=== PATIENT | female | born 1995 | race Caucasian/White ===

== ENCOUNTER 2017-04-29 22:56 | Observation (INO) | payer OTHER, SELFPAY ==
[2017-04-29] MEDS ORDERED: Sodium Chloride 0.9% 1000 ML 1,000 ML IV STA (23:14)
--- NOTE | 2017-04-29 23:25 | ERPHSYRPT ---
- History of Present Illness Time Seen by Provider: 04/29/17 23:08 Source: patient Physician History: CC: general weakness HX: 22 y/o patient of Dr Bal and Dr Espino. She has hx of HTN since age 10. She recently started lisinopril in addition to labetolol. Tonite at work at [employer] she felt general weakness, tired. BP lo 70s. No chest pain. Some headache. Feels weak all over. No fever or chills. No abd pain. No V/D. Meds: Lisinopril/HCTZ and labetolol Timing/Duration: today Allergies/Adverse Reactions: No Known Drug Allergies Allergy (Verified 10/27/15 14:42) Home Medications: Diazepam [Valium] 2 mg PO DAILY PRN PRN 09/27/15 [History] Hydrocodone/APAP 10/325 mg [[place] 10/325 MG Tablet] 1 tab PO Q6H 09/27/15 [History] Carvedilol [Coreg] 25 mg PO BID 10/27/15 [History] Hx Tetanus, Diphtheria Vaccination/Date Given: Yes Hx Influenza Vaccination/Date Given: No Hx Pneumococcal Vaccination/Date Given: No - Review of Systems Constitutional: Malaise, Weakness, No Fever, No Chills Eyes: No Symptoms Ears, Nose, & Throat: No Symptoms Respiratory: No Cough, No Dyspnea Cardiac: No Chest Pain Abdominal/Gastrointestinal: No Abdominal Pain, No Nausea, No Vomiting, No Diarrhea Genitourinary Symptoms: No Dysuria Skin: No Rash Neurological: Headache, No Dizziness, No Focal Weakness, No Parasthesia All Other Systems: Reviewed and Negative - Past Medical History Pertinent Past Medical History: Yes Neurological History: No Pertinent History ENT History: No Pertinent History Cardiac History: Hypertension Respiratory History: No Pertinent History Endocrine Medical History: No Pertinent History Musculoskeletal History: Arthritis GI Medical History: GERD History: Other Psycho-Social History: Anxiety, Depression Female Reproductive Disorders: No Pertinent History - Past Surgical History Past Surgical History: Yes Neuro Surgical History: No Pertinent History Cardiac: Cardiac Catheterization, Other Respiratory: No Pertinent History Gastrointestinal: No Pertinent History Genitourinary: No Pertinent History Musculoskeletal: Orthopedic Surgery Female Surgical History: No Pertinent History Other Surgical History: right ankle biopsy, 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 - Social History Smoking Status: Never smoker Exposure to second hand smoke: Yes Drug Use: none Patient Lives Alone: No ( here with ) - Female History Hx Now: Yes - Nursing Vital Signs Nursing Vital Signs: Initial Vital Signs Temperature 98 F 04/29/17 23:14 Pulse Rate 72 04/29/17 23:14 Respiratory Rate 16 04/29/17 23:14 Blood Pressure 105/78 04/29/17 23:14 O2 Sat by Pulse Oximetry 98 04/29/17 23:14 Pain Scale Pain Intensity 0 - Physical Exam General Appearance: alert Eye Exam: PERRL/EOMI Ears, Nose, Throat Exam: normal ENT inspection, moist mucous membranes Neck Exam: normal inspection, non-tender, supple Respiratory Exam: normal breath sounds, lungs clear Cardiovascular Exam: regular rate/rhythm Gastrointestinal/Abdomen Exam: soft, No tenderness, No distention, No mass, No guarding Extremity Exam: normal inspection, normal range of motion Neurologic Exam: alert, oriented x 3, cooperative Skin Exam: warm, dry, No rash SpO2 Interpretation: normal SpO2: 98 Oxygen Delivery: Room Air - Course Nursing assessment & vital signs reviewed: Yes EKG Interpreted by Me: RATE (74), Sinus Rhythm, NORMAL AXIS, NORMAL INTERVALS ( QTc 473), NORMAL QRS, NORMAL ST-T, Other (right atrial enlargement) Ordered Tests: Active Orders 24 hr Category Date Time Status Clean Catch Urine Specimen STAT Care 04/29/17 23:14 Active EKG-ER Only STAT Care 04/29/17 23:14 Active IV Insertion STAT Care 04/29/17 23:14 Active ACETAMINOPHEN Stat Lab 04/30/17 00:00 Completed BLOOD CULTURE Stat Lab 04/30/17 00:00 Received CBC W DIFF Stat Lab 04/29/17 23:32 Completed CMP Stat Lab 04/29/17 23:32 Completed CULTURE,URINE Stat Lab 04/29/17 23:40 Received HCG QUALITATIVE,SERUM Stat Lab 04/29/17 23:32 Completed Lactic Acid Stat Lab 04/30/17 00:14 Completed MAGNESIUM Stat Lab 04/29/17 23:32 Completed UA W/ MICROSCOPIC Stat Lab 04/29/17 23:40 Completed Urine Triage Profile Stat Lab 04/29/17 23:40 Completed Medication Summary Generic Name Dose Route Start Last Admin Trade Name Freq PRN Reason Stop Dose Admin Ceftriaxone Sodium/Dextrose 1 g in 50 mls @ 100 mls/hr 04/30/17 00:15 Rocephin 1 Gm-D5w 50 Ml Bag IV 04/30/17 00:44 STAT STA Discontinued Medications Generic Name Dose Route Start Last Admin Trade Name Zach PRN Reason Stop Dose Admin Sodium Chloride 1,000 mls @ 999 mls/hr 04/29/17 23:14 04/29/17 23:33 Sodium Chloride 0.9% 1000 Ml IV 04/30/17 00:14 999 mls/hr .Q1H1M STA Administration Sodium Chloride Confirm 04/29/17 23:30 Sodium Chloride 0.9% 1000 Ml Administered 04/29/17 23:31 Dose 1,000 mls @ ud .ROUTE .STK-MED ONE Lab/Rad Data: Laboratory Result Diagrams 04/29/17 23:32 04/29/17 23:32 Laboratory Results 04/30/17 04/30/17 04/29/17 Range/Units 00:14 00:00 23:40 WBC (4.0-10.5) K/mm3 RBC (4.1-5.4) M/mm3 Hgb (12.0-16.0) gm/dl Hct (35-47) % MCV (78-100) fl MCH (26-32) pg MCHC (32-36) g/dl RDW (11.5-14.0) % Plt Count (150-450) K/mm3 MPV (6-9.5) fl Gran % (36.0-66.0) % Lymphocytes % (24.0-44.0) % Monocytes % (0.0-12.0) % Eosinophils % (0.00-5.0) % Basophils % (0.0-0.4) % Basophils # (0-0.4) Sodium (136-145) mEq/L Potassium (3.5-5.1) mEq/L Chloride (98-107) mEq/L Carbon Dioxide (21-32) mEq/L Anion Gap (5-15) MEQ/L BUN (9-20) mg/dL Creatinine (0.55-1.30) mg/dl Estimated GFR ML/MIN Glucose (70-110) MG/DL Lactic Acid 0.9 (0.4-2.0) Calcium (8.5-10.1) mg/dL Magnesium (1.8-2.4) mg/dL Total Bilirubin (0.2-1.0) mg/dL AST (15-37) U/L ALT (12-78) U/L Alkaline Phosphatase (46-116) U/L Serum Total Protein (6.4-8.2) gm/dL Albumin (3.4-5.0) g/dL Serum , Qual (Negative) Ur Collection Type Urine Color (YELLOW) Urine Appearance (CLEAR) Urine pH (5-6) Ur Specific [place] (1.005-1.025) Urine Protein (Negative) Urine Ketones (NEGATIVE) Urine Blood (0-5) Hiram/ul Urine Nitrite (NEGATIVE) Urine Bilirubin (NEGATIVE) Urine Urobilinogen (0-1) mg/dL Ur Leukocyte Esterase (NEGATIVE) Urine Microscopic RBC (0-2) /HPF Urine Microscopic WBC (0-5) /HPF Ur Epithelial Cells (FEW) /HPF Amorphous Crystals (NEGATIVE) /HPF Urine Bacteria (NEGATIVE) /HPF Hyaline Casts (0-2) /LPF Urine Glucose (NEGATIVE) mg/dL Urine Opiates Level POS. (NEGATIVE) Ur Methadone NEG. (NEGATIVE) Acetaminophen < 2.0 L (10-30) ug/ml Urine Barbiturates NEG. (NEGATIVE) Ur Phencyclidine (PCP) NEG. (NEGATIVE) Urine Amphetamine NEG. (NEGATIVE) U Benzodiazepine Level NEG. (NEGATIVE) Urine Cocaine NEG. (NEGATIVE) Urine Marijuana (THC) NEG. (NEGATIVE) Specimen Received 04/29/17 04/29/17 04/29/17 Range/Units 23:40 23:32 23:32 WBC (4.0-10.5) K/mm3 RBC (4.1-5.4) M/mm3 Hgb (12.0-16.0) gm/dl Hct (35-47) % MCV (78-100) fl MCH (26-32) pg MCHC (32-36) g/dl RDW (11.5-14.0) % Plt Count (150-450) K/mm3 MPV (6-9.5) fl Gran % (36.0-66.0) % Lymphocytes % (24.0-44.0) % Monocytes % (0.0-12.0) % Eosinophils % (0.00-5.0) % Basophils % (0.0-0.4) % Basophils # (0-0.4) Sodium 140 (136-145) mEq/L Potassium 4.0 (3.5-5.1) mEq/L Chloride 102 (98-107) mEq/L Carbon Dioxide 29.1 (21-32) mEq/L Anion Gap 13.1 (5-15) MEQ/L BUN 30 H (9-20) mg/dL Creatinine 2.06 H (0.55-1.30) mg/dl Estimated GFR 31 ML/MIN Glucose 151 H (70-110) MG/DL Lactic Acid (0.4-2.0) Calcium 9.0 (8.5-10.1) mg/dL Magnesium 1.9 (1.8-2.4) mg/dL Total Bilirubin 0.20 (0.2-1.0) mg/dL AST 28 (15-37) U/L ALT 33 (12-78) U/L Alkaline Phosphatase 69 (46-116) U/L Serum Total Protein 7.2 (6.4-8.2) gm/dL Albumin 3.8 (3.4-5.0) g/dL Serum , Qual NEGATIVE (Negative) Ur Collection Type CLEAN CATCH Urine Color YELLOW (YELLOW) Urine Appearance CLEAR (CLEAR) Urine pH 5.0 (5-6) Ur Specific [place] 1.020 (1.005-1.025) Urine Protein 100 (Negative) Urine Ketones NEGATIVE (NEGATIVE) Urine Blood 50 (0-5) Hiram/ul Urine Nitrite NEGATIVE (NEGATIVE) Urine Bilirubin NEGATIVE (NEGATIVE) Urine Urobilinogen NORMAL (0-1) mg/dL Ur Leukocyte Esterase 2+ (NEGATIVE) Urine Microscopic RBC 5-10 (0-2) /HPF Urine Microscopic WBC 5-10 (0-5) /HPF Ur Epithelial Cells MODERATE (FEW) /HPF Amorphous Crystals MODERATE (NEGATIVE) /HPF Urine Bacteria FEW (NEGATIVE) /HPF Hyaline Casts 2-5 (0-2) /LPF Urine Glucose NEGATIVE (NEGATIVE) mg/dL Urine Opiates Level (NEGATIVE) Ur Methadone (NEGATIVE) Acetaminophen (10-30) ug/ml Urine Barbiturates (NEGATIVE) Ur Phencyclidine (PCP) (NEGATIVE) Urine Amphetamine (NEGATIVE) U Benzodiazepine Level (NEGATIVE) Urine Cocaine (NEGATIVE) Urine Marijuana (THC) (NEGATIVE) Specimen Received 04/29/17 [id number] 04/29/17 Range/Units 23:32 WBC 10.6 H (4.0-10.5) K/mm3 RBC 4.26 (4.1-5.4) M/mm3 Hgb 11.7 L (12.0-16.0) gm/dl Hct 36.5 (35-47) % MCV 85.7 (78-100) fl MCH 27.4 (26-32) pg MCHC 32.1 (32-36) g/dl RDW 15.3 H (11.5-14.0) % Plt Count 460 H (150-450) K/mm3 MPV 8.9 (6-9.5) fl Gran % 52.7 (36.0-66.0) % Lymphocytes % 32.1 (24.0-44.0) % Monocytes % 11.2 (0.0-12.0) % Eosinophils % 3.6 (0.00-5.0) % Basophils % 0.4 (0.0-0.4) % Basophils # 0.04 (0-0.4) Sodium (136-145) mEq/L Potassium (3.5-5.1) mEq/L Chloride (98-107) mEq/L Carbon Dioxide (21-32) mEq/L Anion Gap (5-15) MEQ/L BUN (9-20) mg/dL Creatinine (0.55-1.30) mg/dl Estimated GFR ML/MIN Glucose (70-110) MG/DL Lactic Acid (0.4-2.0) Calcium (8.5-10.1) mg/dL Magnesium (1.8-2.4) mg/dL Total Bilirubin (0.2-1.0) mg/dL AST (15-37) U/L ALT (12-78) U/L Alkaline Phosphatase (46-116) U/L Serum Total Protein (6.4-8.2) gm/dL Albumin (3.4-5.0) g/dL Serum , Qual (Negative) Ur Collection Type Urine Color (YELLOW) Urine Appearance (CLEAR) Urine pH (5-6) Ur Specific [place] (1.005-1.025) Urine Protein (Negative) Urine Ketones (NEGATIVE) Urine Blood (0-5) Hiram/ul Urine Nitrite (NEGATIVE) Urine Bilirubin (NEGATIVE) Urine Urobilinogen (0-1) mg/dL Ur Leukocyte Esterase (NEGATIVE) Urine Microscopic RBC (0-2) /HPF Urine Microscopic WBC (0-5) /HPF Ur Epithelial Cells (FEW) /HPF Amorphous Crystals (NEGATIVE) /HPF Urine Bacteria (NEGATIVE) /HPF Hyaline Casts (0-2) /LPF Urine Glucose (NEGATIVE) mg/dL Urine Opiates Level (NEGATIVE) Ur Methadone (NEGATIVE) Acetaminophen (10-30) ug/ml Urine Barbiturates (NEGATIVE) Ur Phencyclidine (PCP) (NEGATIVE) Urine Amphetamine (NEGATIVE) U Benzodiazepine Level (NEGATIVE) Urine Cocaine (NEGATIVE) Urine Marijuana (THC) (NEGATIVE) Specimen Received - Progress Progress Note: 04/30/17 00:31 BP borderline low. She is still groggy. Denies overdose. She states creat has been elevated but it is higher now than on our prior labs. Called Dr Bal. Will place in obs for IVF and recheck renal labs in AM. Counseled pt/family regarding: lab results, diagnosis, need for follow-up, smoking cessation (chewing cessation) - Departure Time of Disposition: 00:32 Departure Disposition: Observation Clinical Impression: Hypotension due to drugs, Chronic hypertension, Generalized weakness Condition: Fair Critical Care Time: No Referrals: JOANNE BAL MD [Primary Care Provider] -
[2017-04-29] MEDS ORDERED: Sodium Chloride 0.9% 1000 ML 1,000 ML ONE (23:30)
[2017-04-29 23:35] LABS: BASOPHIL % 0.4 % (0.0-0.4); Eosinophil % 3.6 % (0.00-5.0); Granulocytes % 52.7 % (36.0-66.0); Lymphocytes % 32.1 % (24.0-44.0); Mean Cell Volume 85.7 fl (78-100); Mean Platelet Volume 8.9 fl (6-9.5); Monocytes % 11.2 % (0.0-12.0); Platelet Count 460 K/mm3 (150-450); Red Blood Count 4.26 M/mm3 (4.1-5.4); Red Cell Distribution Width 15.3 % (11.5-14.0); White Blood Count 10.6 K/mm3 (4.0-10.5)
[2017-04-29 23:39] LABS: Mean Corpuscular Hemoglobin 27.4 pg (26-32)
[2017-04-30 00:02] LABS: ALBUMIN 3.8 g/dL (3.4-5.0); ANION GAP 13.1 MEQ/L (5-15); BILIRUBIN,TOTAL 0.2 mg/dL (0.2-1.0); Carbon Dioxide 29.1 mEq/L (21-32); MAGNESIUM 1.9 mg/dL (1.8-2.4); Total Protein 7.2 gm/dL (6.4-8.2)
[2017-04-30 00:10] LABS: Collection Type CLEAN CATCH; Leukocyte Esterase 2+ (NEGATIVE)
[2017-04-30 00:11] LABS: ADD URINE CULTURE? YES (NO); Bacteria FEW /HPF (NEGATIVE); Bilirubin NEGATIVE (NEGATIVE); Blood 50 Ery/ul (0-5); COMPLETE URINE MICROSCOPIC? YES; Epithelial Cells MODERATE /HPF (FEW); Glucose NEGATIVE (NEGATIVE)
[2017-04-30] MEDS ORDERED: ROCEPHIN 1 Gm-D5w 50 ml Bag** 1 G/50 ML IVPB IV STA (00:15)
[2017-04-30] MEDS ORDERED: ROCEPHIN 1 Gm-D5w 50 ml Bag** 1 G/50 ML IVPB IV ONE (00:31)
[2017-04-30] MEDS ORDERED: Sodium Chloride 0.9% 1000 ML 1,000 ML IV SCH ×2 (00:57→10:45)
[2017-04-30] MEDS ORDERED: TYLENOL 325 MG PO PRN (00:57)
[2017-04-30 05:45] LABS: BASOPHIL % 0.4 % (0.0-0.4); Eosinophil % 5.4 % (0.00-5.0); Granulocytes % 44.9 % (36.0-66.0); Lymphocytes % 34.7 % (24.0-44.0); Mean Cell Volume 87.5 fl (78-100); Mean Corpuscular Hemoglobin 27.2 pg (26-32); Mean Platelet Volume 8.4 fl (6-9.5); Monocytes % 14.6 % (0.0-12.0); Platelet Count 405 K/mm3 (150-450); Red Blood Count 3.93 M/mm3 (4.1-5.4); Red Cell Distribution Width 15.6 % (11.5-14.0); White Blood Count 9.2 K/mm3 (4.0-10.5)
[2017-04-30 06:21] LABS: ALBUMIN 3.2 g/dL (3.4-5.0); ALKALINE PHOSPHATASE 60 U/L (46-116); ANION GAP 11.1 MEQ/L (5-15); BLOOD UREA NITROGEN 31 mg/dL (9-20); CHLORIDE 105 mEq/L (98-107); Carbon Dioxide 29.8 mEq/L (21-32); Glucose 120 MG/DL (70-110); Potassium 4.2 mEq/L (3.5-5.1); SGOT/AST 23 U/L (15-37); SGPT/ALT 30 U/L (12-78); SODIUM 142 mEq/L (136-145); Total Protein 6.5 gm/dL (6.4-8.2)
[2017-04-30 06:39] LABS: BILIRUBIN,TOTAL < 0.10 mg/dL (0.2-1.0)
--- NOTE | 2017-04-30 09:20 | PCM.HP ---
History of Present Illness - Chief Complaint Chief Complaint: generalized weakness History of Present Illness: is a 22 year old female. has hx of HTN since age 10. She recently started lisinopril in addition to labetolol. Tonite at work at [employer] she felt general weakness, tired. BP lo 70s. No chest pain. Some headache. Feels weak all over. No fever or chills. No abd pain. No V/D. - Review of Systems Constitutional: No Fever, No Chills Eyes: No Symptoms Ears, Nose, & Throat: No Symptoms Respiratory: No Cough, No Short Of Breath Cardiac: No Chest Pain, No Edema, No Syncope Abdominal/Gastrointestinal: No Abdominal Pain, No Nausea, No Vomiting, No Diarrhea Genitourinary Symptoms: No Dysuria Musculoskeletal: No Back Pain, No Neck Pain Skin: No Rash Neurological: No Dizziness, No Focal Weakness, No Sensory Changes Psychological: No Symptoms Endocrine: No Symptoms Hematologic/Lymphatic: No Symptoms Immunological/Allergic: No Symptoms Medications & Allergies Home Medications: Home Medication List Hydrocodone/APAP 10/325 mg [[place] 10/325 MG Tablet] 1 tab PO Q6H PRN PRN 09/27/15 [History Confirmed 04/30/17] Labetalol HCl 100 mg [Trandate 100 MG] 300 mg PO HS 04/30/17 [History Confirmed 04/30/17] Lisinopril/Hydrochlorothiazide [Lisinopril-Hctz 20-12.5 mg Tab] 1 each PO DAILY 04/30/17 [History Confirmed 04/30/17] Ranitidine HCl 150 mg PO Q4H PRN PRN 04/30/17 [History Confirmed 04/30/17] Allergies/Adverse Reactions: Allergies Allergy/AdvReac Type Severity Reaction Status Date / Time No Known Drug Allergies Allergy Verified 10/27/15 14:42 - Past Medical History Past Medical History: Yes Neurological History: No Pertinent History ENT History: No Pertinent History Cardiac History: Hypertension Respiratory History: No Pertinent History Endocrine Medical History: No Pertinent History Musculoskelatal History: Arthritis GI Medical History: GERD History: Other Pyscho-Social History: Anxiety, Depression Reproductive Disorders: No Pertinent History Comment: PAST DX OF STAGE I KIDNEY FAILURE. 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 - Social History Smoking Status: Never smoker Exposure to second hand smoke: No Alcohol: None Drug Use: none - Physical Exam Vital Signs: Vital Signs - 24 hr Temp Pulse Resp BP Pulse Ox 04/30/17 07:38 97.7 F 71 18 105/64 94 L 04/30/17 06:00 97.6 F 67 14 100/60 98 04/30/17 04:00 97.6 F 67 14 100/60 98 04/30/17 00:57 97.9 F 80 14 102/63 98 04/30/17 00:33 98 04/30/17 00:16 98 F 78 16 105/78 98 04/29/17 23:14 98 F 72 16 105/78 98 General Appearance: no apparent distress, alert Neurologic Exam: alert, oriented x 3, cooperative, normal mood/affect, nml cerebellar function, nml station & gait, sensation nml, No motor deficits Eye Exam: PERRL/EOMI, eyes nml inspection Ears, Nose, Throat Exam: normal ENT inspection, TMs normal, pharynx normal, moist mucous membranes Neck Exam: normal inspection, non-tender, supple, full range of motion Respiratory Exam: normal breath sounds, lungs clear, No respiratory distress Cardiovascular Exam: regular rate/rhythm, normal heart sounds, normal peripheral pulses Gastrointestinal/Abdomen Exam: soft, normal bowel sounds, No tenderness, No mass Back Exam: normal inspection, normal range of motion, No CVA tenderness, No vertebral tenderness Extremity Exam: normal inspection, normal range of motion, pelvis stable Skin Exam: normal color, warm, dry, No rash Lymphatic Exam: No adenopathy Results - Labs Lab/Micro Results: Lab Results-Last 24 Hours 04/30/17 04/30/17 Range/Units 05:33 05:33 WBC 9.2 (4.0-10.5) K/mm3 RBC 3.93 L (4.1-5.4) M/mm3 Hgb 10.7 L (12.0-16.0) gm/dl Hct 34.4 L (35-47) % MCV 87.5 (78-100) fl MCH 27.2 (26-32) pg MCHC 31.1 L (32-36) g/dl RDW 15.6 H (11.5-14.0) % Plt Count 405 (150-450) K/mm3 MPV 8.4 (6-9.5) fl Gran % 44.9 (36.0-66.0) % Lymphocytes % 34.7 (24.0-44.0) % Monocytes % 14.6 H (0.0-12.0) % Eosinophils % 5.4 H (0.00-5.0) % Basophils % 0.4 (0.0-0.4) % Basophils # 0.04 (0-0.4) Sodium 142 (136-145) mEq/L Potassium 4.2 (3.5-5.1) mEq/L Chloride 105 (98-107) mEq/L Carbon Dioxide 29.8 (21-32) mEq/L Anion Gap 11.1 (5-15) MEQ/L BUN 31 H (9-20) mg/dL Creatinine 1.70 H (0.55-1.30) mg/dl Estimated GFR 39 ML/MIN Glucose 120 H (70-110) MG/DL Calcium 8.5 (8.5-10.1) mg/dL Total Bilirubin < 0.10 L (0.2-1.0) mg/dL AST 23 (15-37) U/L ALT 30 (12-78) U/L Alkaline Phosphatase 60 (46-116) U/L Serum Total Protein 6.5 (6.4-8.2) gm/dL Albumin 3.2 L (3.4-5.0) g/dL Assessment/Plan (1) Acute renal failure Current Visit: Yes Status: Acute Qualifiers: Acute renal failure type: unspecified Qualified Code(s): N17.9 - Acute kidney failure, unspecified (2) Generalized weakness Current Visit: Yes Status: Acute Code(s): R53.1 - WEAKNESS (3) Hypotension due to drugs Current Visit: Yes Status: Acute (4) UTI (urinary tract infection) Current Visit: Yes Status: Acute Qualifiers: Urinary tract infection type: acute cystitis Code(s): N39.0 - URINARY TRACT INFECTION, SITE NOT SPECIFIED
--- NOTE | 2017-04-30 09:30 | PCM.DCORD ---
- Discharge Discharge Date: 04/30/17 Disposition: Home, Self-Care Condition: Stable Prescriptions: New Ciprofloxacin [Cipro 500 MG] 500 mg PO BID #10 tablet Acetaminophen 325 mg [Tylenol 325 mg] 650 mg PO Q6H PRN PRN #0 tablet PRN Reason: Pain And/Or Fever Continue Labetalol HCl 100 mg [Trandate 100 MG] 300 mg PO HS Ranitidine HCl 150 mg PO Q4H PRN PRN PRN Reason: Gerd Discontinued Hydrocodone/APAP 10/325 mg [[place] 10/325 MG Tablet] 1 tab PO Q6H PRN PRN PRN Reason: Pain Lisinopril/Hydrochlorothiazide [Lisinopril-Hctz 20-12.5 mg Tab] 1 each PO DAILY Follow up with: JOANNE BAL MD [Primary Care Provider] - 7 Days
[2017-04-30] MEDS ORDERED: Sodium Chloride 0.9% 1000 ML 1,000 ML IV STA ×2 (09:59→10:00)
[2017-04-30] MEDS ORDERED: NON-FORMULARY ITEM (Ranitidine Hcl [Ranitidine Hcl] 150 MG) PO PRN (10:40)
[2017-04-30] MEDS ORDERED: Pepcid 20 MG PO PRN (10:42)
[2017-04-30 11:43] VITALS: BP 107/55; PULSE 77; O2SAT 95
[2017-04-30] MEDS ORDERED: Trandate 100 MG PO SCH (22:00)
== END 2017-04-30 11:40 | disposition home or self-care (01) ==
LOC: ED 22:56 → MED SURG 04-30 00:50
PROVIDERS: ADMIT General Practice; ATTEND General Practice
DX: N17.9 Acute kidney failure, unspecified (principal); R53.1 Weakness; I95.2 Hypotension due to drugs; N39.0 Urinary tract infection, site not specified
CPT/HCPCS: 36000; 36415; 80053; 80307; 81000; 81002; 83605; 83735; 84703; 85025; 87040; 87086; 93005; 93268; 96360; 96365; 99285; G0378; G0481; J0696; A9270-GY

== ENCOUNTER 2017-08-17 10:24 | Emergency (ER) | payer OTHER, SELFPAY ==
[2017-08-17] MEDS ORDERED: Zofran 4 MG/2 ML VIAL ONE (10:34)
[2017-08-17] MEDS ORDERED: Sodium Chloride 0.9% 1000 ML 1,000 ML ONE ×2 (10:34→11:53)
[2017-08-17] MEDS ORDERED: Zofran 4 MG/2 ML VIAL IV STA (10:35)
[2017-08-17] MEDS ORDERED: Sodium Chloride 0.9% 1000 ML 2,000 ML IV STA (10:35)
[2017-08-17 10:51] LABS: BASOPHIL % 0.1 % (0.0-0.4); Eosinophil % 5.6 % (0.00-5.0); Granulocytes % 79.3 % (36.0-66.0); Lymphocytes % 7.9 % (24.0-44.0); Mean Cell Volume 87.2 fl (78-100); Mean Corpuscular Hemoglobin 27.8 pg (26-32); Mean Platelet Volume 8.9 fl (6-9.5); Monocytes % 7.1 % (0.0-12.0); Platelet Count 461 K/mm3 (150-450); Red Blood Count 4.39 M/mm3 (4.1-5.4); Red Cell Distribution Width 16.2 % (11.5-14.0)
--- NOTE | 2017-08-17 11:27 | ERPHSYRPT ---
- History of Present Illness Time Seen by Provider: 08/17/17 11:23 Source: patient Exam Limitations: no limitations Patient Subjective Stated Complaint: PT HAS BEEN VOMITING AND LOOSE STOOLS SINCE EARLY SAT. MORNING, FEVER SAT 102.7, EARACHE, HEADACEH Triage Nursing Assessment: TX WALKED IN , RESP EASY, SKIN W/D PINK, LIPS MOIST, NO EDEMA NOTED Physician History: 22-year-old female came to the emergency room with complaining of fever, chills , nausea and vomiting for 2 days. She is also complaining of generalized malaise and body ache. Timing/Duration: day(s) (2-3 days) Allergies/Adverse Reactions: No Known Drug Allergies Allergy (Verified 08/17/17 10:29) Home Medications: Labetalol HCl 100 mg [Trandate 100 MG] 300 mg PO HS 04/30/17 [History] Ranitidine HCl 150 mg PO Q4H PRN PRN 04/30/17 [History] Hx Tetanus, Diphtheria Vaccination/Date Given: Yes Hx Influenza Vaccination/Date Given: No Hx Pneumococcal Vaccination/Date Given: No Immunizations Up to Date: Yes - Review of Systems Constitutional: Fever, Chills, Malaise Eyes: No Symptoms Ears, Nose, & Throat: No Symptoms Respiratory: No Cough, No Dyspnea Cardiac: No Chest Pain, No Edema, No Syncope Abdominal/Gastrointestinal: No Abdominal Pain, No Nausea, No Vomiting, No Diarrhea Genitourinary Symptoms: No Dysuria Musculoskeletal: No Back Pain, No Neck Pain Skin: No Rash Neurological: Headache, No Dizziness, No Focal Weakness, No Sensory Changes Psychological: No Symptoms Endocrine: No Symptoms All Other Systems: Reviewed and Negative - Past Medical History Pertinent Past Medical History: Yes Neurological History: No Pertinent History ENT History: No Pertinent History Cardiac History: Hypertension Respiratory History: No Pertinent History Endocrine Medical History: No Pertinent History Musculoskeletal History: Arthritis GI Medical History: GERD History: Other Psycho-Social History: Anxiety, Depression Female Reproductive Disorders: No Pertinent History Other Medical History: PAST DX OF STAGE I KIDNEY FAILURE. 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 - Social History Smoking Status: Never smoker Exposure to second hand smoke: No Drug Use: none Patient Lives Alone: No - Female History Hx Last Menstrual Period: NOV Hx Now: Yes - Nursing Vital Signs Nursing Vital Signs: Initial Vital Signs Temperature 98.2 F 08/17/17 10:31 Pulse Rate 108 H 08/17/17 10:31 Respiratory Rate 20 08/17/17 10:31 Blood Pressure 155/107 08/17/17 10:31 O2 Sat by Pulse Oximetry 96 08/17/17 10:31 Pain Scale Pain Intensity 8 - Physical Exam General Appearance: no apparent distress, alert Eye Exam: PERRL/EOMI ENT Exam: normal ENT inspection, No pharyngeal erythema, No tonsillar exudate Neck Exam: supple, full range of motion, No meningismus Respiratory Exam: normal breath sounds, lungs clear, no respiratory distress Cardiovascular/Chest Exam: normal heart sounds, regular rate/rhythm, No murmur, No edema Gastrointestinal/Abdominal Exam: soft, non tender, no distention Extremity Exam: non-tender, normal range of motion, normal inspection, normal capillary refill Neurologic Exam: alert, oriented x 3, cooperative, mosaic tile maker II-XII nml as tested, normal mood/affect, sensation nml, No motor deficits Skin Exam: normal color, warm, dry, No rash SpO2: 96 Oxygen Delivery: Room Air - Course Nursing assessment & vital signs reviewed: Yes Ordered Tests: Active Orders 24 hr Category Date Time Status CBC W DIFF Stat Lab 08/17/17 10:44 Completed CMP Stat Lab 08/17/17 10:44 Completed CULTURE, THROAT Stat Lab 08/17/17 10:44 Received STREP SCREEN-BETA A Stat Lab 08/17/17 10:44 Completed UA W/ MICROSCOPIC Stat Lab 08/17/17 10:44 Completed Medication Summary Generic Name Dose Route Start Last Admin Trade Name Freq PRN Reason Stop Dose Admin Sodium Chloride 2,000 mls @ 999 mls/hr 08/17/17 10:35 08/17/17 10:37 Sodium Chloride 0.9% 1000 Ml IV 08/17/17 12:35 999 mls/hr .Q2H1M STA Administration Sodium Chloride 1,000 mls @ 999 mls/hr 08/17/17 11:53 08/17/17 11:55 Sodium Chloride 0.9% 1000 Ml IV 08/17/17 12:53 Not Given .Q1H1M STA Ceftriaxone Sodium/Dextrose 1 g in 50 mls @ 100 mls/hr 08/17/17 11:54 12:01 Rocephin 1 Gm-D5w 50 Ml Bag IV 08/17/17 12:23 100 mls/hr STAT STA Administration Discontinued Medications Generic Name Dose Route Start Last Admin Trade Name Freq PRN Reason Stop Dose Admin Sodium Chloride Confirm 08/17/17 10:34 Sodium Chloride 0.9% 1000 Ml Administered 08/17/17 10:35 Dose 1,000 mls @ ud .ROUTE .STK-MED ONE Sodium Chloride Confirm 08/17/17 11:53 Sodium Chloride 0.9% 1000 Ml Administered 08/17/17 11:54 Dose 1,000 mls @ ud .ROUTE .STK-MED ONE Ceftriaxone Sodium/Dextrose Confirm 08/17/17 11:58 Rocephin 1 Gm-D5w 50 Ml Bag Administered 08/17/17 11:59 Dose 1 g in 50 mls @ ud IV .STK-MED ONE Ondansetron HCl Confirm 08/17/17 10:34 Zofran 4 Mg/2 Ml Vial Administered 08/17/17 10:35 Dose 4 mg .ROUTE .STK-MED ONE Ondansetron HCl 4 mg 08/17/17 10:35 08/17/17 10:37 Zofran 4 Mg/2 Ml Vial IV 08/17/17 10:36 4 mg STAT STA Administration Lab/Rad Data: Laboratory Result Diagrams 08/17/17 10:44 08/17/17 10:44 Laboratory Results 08/17/17 08/17/17 08/17/17 Range/Units 10:44 10:44 10:44 WBC (4.0-10.5) K/mm3 RBC (4.1-5.4) M/mm3 Hgb (12.0-16.0) gm/dl Hct (35-47) % MCV (78-100) fl MCH (26-32) pg MCHC (32-36) g/dl RDW (11.5-14.0) % Plt Count (150-450) K/mm3 MPV (6-9.5) fl Gran % (36.0-66.0) % Lymphocytes % (24.0-44.0) % Monocytes % (0.0-12.0) % Eosinophils % (0.00-5.0) % Basophils % (0.0-0.4) % Basophils # (0-0.4) Sodium 139 (136-145) mEq/L Potassium 4.7 (3.5-5.1) mEq/L Chloride 104 (98-107) mEq/L Carbon Dioxide 26.0 (21-32) mEq/L Anion Gap 13.4 (5-15) MEQ/L BUN 24 H (9-20) mg/dL Creatinine 1.15 (0.55-1.30) mg/dl Estimated GFR > 60 ML/MIN Glucose 116 H (70-110) MG/DL Calcium 8.9 (8.5-10.1) mg/dL Total Bilirubin 0.60 (0.2-1.0) mg/dL AST 20 (15-37) U/L ALT 21 (12-78) U/L Alkaline Phosphatase 69 (46-116) U/L Serum Total Protein 7.9 (6.4-8.2) gm/dL Albumin 4.1 (3.4-5.0) g/dL Ur Collection Type Urine Color (YELLOW) Urine Appearance (CLEAR) Urine pH (5-6) Ur Specific [place] (1.005-1.025) Urine Protein (Negative) Urine Ketones (NEGATIVE) Urine Blood (0-5) Hiram/ul Urine Nitrite (NEGATIVE) Urine Bilirubin (NEGATIVE) Urine Urobilinogen (0-1) mg/dL Ur Leukocyte Esterase (NEGATIVE) Urine Microscopic RBC (0-2) /HPF Urine Microscopic WBC (0-5) /HPF Ur Epithelial Cells (FEW) /HPF Urine Bacteria (NEGATIVE) /HPF Urine Mucus (NEGATIVE) /HPF Urine Culture Reflexed (NO) Urine Glucose (NEGATIVE) mg/dL Influenza Type A Ag NEGATIVE (NEGATIVE) Influenza Type B Ag NEGATIVE (NEGATIVE) RSV (PCR) NEGATIVE (Negative) Streptococcus Screen NEGATIVE (Negative) Specimen Received 08/17/17 08/17/17 Range/Units 10:44 10:44 WBC 11.0 H (4.0-10.5) K/mm3 RBC 4.39 (4.1-5.4) M/mm3 Hgb 12.2 (12.0-16.0) gm/dl Hct 38.3 (35-47) % MCV 87.2 (78-100) fl MCH 27.8 (26-32) pg MCHC 31.9 L (32-36) g/dl RDW 16.2 H (11.5-14.0) % Plt Count 461 H (150-450) K/mm3 MPV 8.9 (6-9.5) fl Gran % 79.3 H (36.0-66.0) % Lymphocytes % 7.9 L (24.0-44.0) % Monocytes % 7.1 (0.0-12.0) % Eosinophils % 5.6 H (0.00-5.0) % Basophils % 0.1 (0.0-0.4) % Basophils # 0.01 (0-0.4) Sodium (136-145) mEq/L Potassium (3.5-5.1) mEq/L Chloride (98-107) mEq/L Carbon Dioxide (21-32) mEq/L Anion Gap (5-15) MEQ/L BUN (9-20) mg/dL Creatinine (0.55-1.30) mg/dl Estimated GFR ML/MIN Glucose (70-110) MG/DL Calcium (8.5-10.1) mg/dL Total Bilirubin (0.2-1.0) mg/dL AST (15-37) U/L ALT (12-78) U/L Alkaline Phosphatase (46-116) U/L Serum Total Protein (6.4-8.2) gm/dL Albumin (3.4-5.0) g/dL Ur Collection Type CLEAN CATCH Urine Color YELLOW (YELLOW) Urine Appearance CLEAR (CLEAR) Urine pH 5.0 (5-6) Ur Specific [place] 1.020 (1.005-1.025) Urine Protein 300 (Negative) Urine Ketones NEGATIVE (NEGATIVE) Urine Blood LARGE (0-5) Hiram/ul Urine Nitrite NEGATIVE (NEGATIVE) Urine Bilirubin NEGATIVE (NEGATIVE) Urine Urobilinogen NORMAL (0-1) mg/dL Ur Leukocyte Esterase NEGATIVE (NEGATIVE) Urine Microscopic RBC 5-10 (0-2) /HPF Urine Microscopic WBC 0-2 (0-5) /HPF Ur Epithelial Cells MODERATE (FEW) /HPF Urine Bacteria MODERATE (NEGATIVE) /HPF Urine Mucus SLIGHT (NEGATIVE) /HPF Urine Culture Reflexed NO (NO) Urine Glucose NEGATIVE (NEGATIVE) mg/dL Influenza Type A Ag (NEGATIVE) Influenza Type B Ag (NEGATIVE) RSV (PCR) (Negative) Streptococcus Screen (Negative) Specimen Received [id number] - Progress Progress: improved, pain not gone completely Counseled pt/family regarding: lab results, diagnosis, need for follow-up - Departure Time of Disposition: 11:27 Departure Disposition: Home Clinical Impression: UTI (urinary tract infection) Qualifiers: Urinary tract infection type: site unspecified Hematuria presence: without hematuria Qualified Code(s): N39.0 - Urinary tract infection, site not specified Hypertension Qualifiers: Hypertension type: essential hypertension Qualified Code(s): I10 - Essential ( primary) hypertension Condition: Stable Critical Care Time: No Referrals: JOANNE BAL MD [Primary Care Provider] - Instructions: Urinary Tract Infection (UTI) Additional Instructions: URINARY TRACT INFECTION 1. You will need to drink plenty of fluids in order to keep your urinary system flushed. These fluids should mainly consist of water and juices. 2. Take medications as directed. You need to completely finish any antiobiotic prescription given. 3. Try to avoid coffee, tea, alcohol, and seasoned foods as they may cause bladder irritation. 4. If signs and symptoms persist after 3-4 days, you will need to follow up with your family physician. 5. Female Patients: A. Avoid intercourse for 3-4 days. B. Empty bladder before and after intercourse to reduce risk of re- infection. C. After emptying bladder, wipe from front to back to reduce the risk of re- infection. Prescriptions: Ciprofloxacin [Cipro 500 MG] 500 mg PO BIDAC #15 tablet Naproxen 375 mg [Naprosyn 375 mg] 375 mg PO Q8H #30 tablet
[2017-08-17 11:28] LABS: ALBUMIN 4.1 g/dL (3.4-5.0); ALKALINE PHOSPHATASE 69 U/L (46-116); ANION GAP 13.4 MEQ/L (5-15); BLOOD UREA NITROGEN 24 mg/dL (9-20); CHLORIDE 104 mEq/L (98-107); Glucose 116 MG/DL (70-110); Potassium 4.7 mEq/L (3.5-5.1); SGOT/AST 20 U/L (15-37); SGPT/ALT 21 U/L (12-78); SODIUM 139 mEq/L (136-145); Total Protein 7.9 gm/dL (6.4-8.2)
[2017-08-17 11:37] LABS: Bilirubin NEGATIVE (NEGATIVE); Blood LARGE Ery/ul (0-5); COMPLETE URINE MICROSCOPIC? YES; Collection Type CLEAN CATCH; Glucose NEGATIVE (NEGATIVE); Leukocyte Esterase NEGATIVE (NEGATIVE); Mucus SLIGHT /HPF (NEGATIVE); WBC 0-2 /HPF (0-5)
[2017-08-17 11:38] LABS: ADD URINE CULTURE? NO (NO); Bacteria MODERATE /HPF (NEGATIVE); Epithelial Cells MODERATE /HPF (FEW)
[2017-08-17 11:43] VITALS: BP 161/110; PULSE 88
[2017-08-17] MEDS ORDERED: Sodium Chloride 0.9% 1000 ML 1,000 ML IV STA (11:53)
[2017-08-17] MEDS ORDERED: ROCEPHIN 1 Gm-D5w 50 ml Bag** 1 G/50 ML IVPB IV STA (11:54)
[2017-08-17 11:55] VITALS: O2SAT 96
[2017-08-17] MEDS ORDERED: ROCEPHIN 1 Gm-D5w 50 ml Bag** 1 G/50 ML IVPB IV ONE (11:58)
[2017-08-17] MEDS ORDERED: TORAdol 30 mg Injection ONE (12:43)
[2017-08-17] MEDS ORDERED: TORAdol 30 mg Injection IV ONE (12:44)
== END 2017-08-17 13:10 | disposition home or self-care (01) ==
LOC: ED 10:24
DX: N39.0 Urinary tract infection, site not specified (principal); I10 Essential (primary) hypertension; R50.9 Fever, unspecified; R53.81 Other malaise; R11.2 Nausea with vomiting, unspecified
CPT/HCPCS: 36000; 36415; 80053; 81000; 85025; 87070; 87430; 87631; 96360; 96361; 96365; 96374; 96375; 99284; J0696; J1885; J2405

== ENCOUNTER 2017-08-31 20:09 | Emergency (ER) | payer OTHER ==
[2017-08-31] MEDS ORDERED: solu-MEDROL 125 MG IV ONE (20:30)
[2017-08-31] MEDS ORDERED: DUONEB 0.5-3 MG/3 ml Neb IH ONE ×2 (20:30→20:33)
--- NOTE | 2017-08-31 20:30 | ERPHSYRPT ---
- History of Present Illness Time Seen by Provider: 08/31/17 20:25 Source: patient Exam Limitations: no limitations Patient Subjective Stated Complaint: cough, increased sob Triage Nursing Assessment: started today with dry cough, congestion and increased sob. audible wheezes noted. tight cough. no fever Physician History: The patient is a 22-year-old female with mother complaining of increasing shortness of breath, cough, and chest tightness throughout the day. Other people in the household have been sick. She denies fever. She denies smoking but does chew tobacco. Timing/Duration: today Activities at Onset: none Severity of Dyspnea-Max: moderate Severity of Dyspnea-Current: moderate Possible Cause: occasional episodes Modifying Factors: Improves With: deep breath, exertion Associated Symptoms: wheezing Allergies/Adverse Reactions: No Known Drug Allergies Allergy (Verified 08/31/17 20:21) Home Medications: Labetalol HCl 100 mg [Trandate 100 MG] 300 mg PO HS 04/30/17 [History] Ranitidine HCl 150 mg PO Q4H PRN PRN 04/30/17 [History] Hx Tetanus, Diphtheria Vaccination/Date Given: Yes Hx Influenza Vaccination/Date Given: No Hx Pneumococcal Vaccination/Date Given: No Immunizations Up to Date: Yes - Review of Systems Constitutional: No Fever, No Chills Eyes: No Symptoms Ears, Nose, & Throat: No Symptoms Respiratory: Cough, Dyspnea, Wheezing Cardiac: Other (chest tightness) Abdominal/Gastrointestinal: No Abdominal Pain, No Nausea, No Vomiting, No Diarrhea Genitourinary Symptoms: No Dysuria Musculoskeletal: No Back Pain, No Neck Pain Skin: No Rash Neurological: No Dizziness, No Focal Weakness, No Sensory Changes Psychological: No Symptoms Endocrine: No Symptoms Hematologic/Lymphatic: No Symptoms Immunological/Allergic: No Symptoms All Other Systems: Reviewed and Negative - Past Medical History Pertinent Past Medical History: Yes Neurological History: No Pertinent History ENT History: No Pertinent History Cardiac History: Hypertension Respiratory History: No Pertinent History Endocrine Medical History: No Pertinent History Musculoskeletal History: Arthritis GI Medical History: GERD History: Other Psycho-Social History: Anxiety, Depression Female Reproductive Disorders: No Pertinent History Other Medical History: PAST DX OF STAGE I KIDNEY FAILURE. 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 - Social History Smoking Status: Never smoker Exposure to second hand smoke: Yes Drug Use: none Patient Lives Alone: No - Female History Hx Last Menstrual Period: 2 months Hx Now: No - Nursing Vital Signs Nursing Vital Signs: Initial Vital Signs Temperature 97.2 F 08/31/17 20:17 Pulse Rate 104 H 08/31/17 20:17 Respiratory Rate 24 08/31/17 20:17 Blood Pressure 122/74 08/31/17 20:17 O2 Sat by Pulse Oximetry 96 08/31/17 20:17 Pain Scale Pain Intensity 0 - Physical Exam General Appearance: mild distress Eye Exam: PERRL/EOMI Ears, Nose, Throat Exam: hearing grossly normal, normal pharynx Neck Exam: normal inspection, supple Respiratory Exam: diminished breath sounds, wheezing Cardiovascular/Chest Exam: normal heart sounds, regular rate/rhythm Abdominal/Gastrointestinal Exam: soft, No tenderness, No distention, No mass Rectal Exam: not done Extremity Exam: non-tender, normal range of motion, normal inspection, no calf tenderness, no pedal edema Neurologic Exam: alert, oriented x 3, cooperative, grade checker II-XII nml as tested, sensation nml, No motor deficits Skin Exam: normal color, warm, No dry SpO2 Interpretation: normal SpO2: 96 Oxygen Delivery: Room Air - Radiology Exams Chest X-ray Interpretation: Interpreted by me, Negative Ordered Tests: Active Orders 24 hr Category Date Time Status IV Insertion STAT Care 08/31/17 20:30 Active Pulse Oximetry (ED) STAT Care 08/31/17 20:30 Active CHEST 2 VIEWS (PA AND LAT) Stat Exams 08/31/17 20:31 Taken BMP Stat Lab 08/31/17 20:30 Completed CBC W DIFF Stat Lab 08/31/17 20:30 Completed Lactic Acid Stat Lab 08/31/17 20:35 Completed Respiratory Nebulizer STAT RT 08/31/17 20:32 Active Respiratory Nebulizer STAT RT 08/31/17 21:21 Active Medication Summary Discontinued Medications Generic Name Dose Route Start Last Admin Trade Name Freq PRN Reason Stop Dose Admin Albuterol Sulfate 2.5 mg 08/31/17 21:20 08/31/17 21:26 Proventil 2.5 Mg/3 Ml Neb IH 08/31/17 21:21 2.5 mg STAT ONE Administration Albuterol Sulfate Confirm 08/31/17 21:23 Proventil 2.5 Mg/3 Ml Neb Administered 08/31/17 21:24 Dose 2.5 mg IH .STK-MED ONE Albuterol/Ipratropium 3 ml 08/31/17 20:30 08/31/17 20:37 Duoneb 0.5-3 Mg/3 Ml Neb IH 08/31/17 20:31 3 ml STAT ONE Administration Albuterol/Ipratropium Confirm 08/31/17 20:33 Duoneb 0.5-3 Mg/3 Ml Neb Administered 08/31/17 20:34 Dose 3 ml IH .STK-MED ONE Ketorolac Tromethamine 30 mg 08/31/17 21:20 08/31/17 21:26 Toradol 30 Mg Injection IV 08/31/17 21:21 30 mg STAT ONE Administration Ketorolac Tromethamine Confirm 08/31/17 21:23 Toradol 30 Mg Injection Administered 08/31/17 21:24 Dose 30 mg .ROUTE .STK-MED ONE Methylprednisolone Sodium Succinate 125 mg 08/31/17 20:30 08/31/17 20:37 Solu-Medrol 125 Mg IV 08/31/17 20:31 125 mg STAT ONE Administration Methylprednisolone Sodium Succinate Confirm 08/31/17 20:33 Solu-Medrol 125 Mg Administered 08/31/17 20:34 Dose 125 mg .ROUTE .STK-MED ONE Lab/Rad Data: Laboratory Result Diagrams 08/31/17 20:30 08/31/17 20:30 Laboratory Results 08/31/17 08/31/17 08/31/17 Range/Units 20:35 20:30 20:30 WBC 11.3 H (4.0-10.5) K/mm3 RBC 4.05 L (4.1-5.4) M/mm3 Hgb 11.3 L (12.0-16.0) gm/dl Hct 35.6 (35-47) % MCV 87.9 (78-100) fl MCH 27.9 (26-32) pg MCHC 31.7 L (32-36) g/dl RDW 15.8 H (11.5-14.0) % Plt Count 556 H (150-450) K/mm3 MPV 9.3 (6-9.5) fl Gran % 64.8 (36.0-66.0) % Lymphocytes % 17.3 L (24.0-44.0) % Monocytes % 9.8 (0.0-12.0) % Eosinophils % 7.7 H (0.00-5.0) % Basophils % 0.4 (0.0-0.4) % Basophils # 0.05 (0-0.4) Sodium 144 (136-145) mEq/L Potassium 4.9 (3.5-5.1) mEq/L Chloride 107 (98-107) mEq/L Carbon Dioxide 27.1 (21-32) mEq/L Anion Gap 15.0 (5-15) MEQ/L BUN 27 H (9-20) mg/dL Creatinine 1.89 H (0.55-1.30) mg/dl Estimated GFR 35 ML/MIN Glucose 115 H (70-110) MG/DL Lactic Acid 1.1 (0.4-2.0) Calcium 9.5 (8.5-10.1) mg/dL - Progress Progress: improved Air Movement: fair Progress Note: 08/31/17 21:36 After Duo neb and solumedrol 125 mg IV, pt is still wheezing. Will add albuterol neb and toradol 30 IV. 08/31/17 21:58 After albuterol neb and coaching on how to breathe deeply to inhale the med, pt is now free from wheezing. Blood Culture(s) Obtained: No Antibiotics given: No Counseled pt/family regarding: diagnosis, need for follow-up, rad results - Departure Time of Disposition: 22:01 Departure Disposition: Home Clinical Impression: Bronchospasm, acute Condition: Stable Critical Care Time: No Referrals: JOANNE BAL MD [Primary Care Provider] - Additional Instructions: You had bronchospasm with wheezing. You were given Solu-Medrol 125 mg and Toradol 30 mg by IV. You were given a DuoNeb and 2 albuterol neb treatments in the ER. At home continue with albuterol neb treatments every 2-4 hours as needed. Beginning tomorrow, take prednisone 60 mg daily for 5 days. Follow-up with your primary care provider in 1-2 days. Prescriptions: Prednisone 10 mg [Deltasone 10 mg] 60 mg PO DAILY #30 tablet
[2017-08-31] MEDS ORDERED: solu-MEDROL 125 MG ONE (20:33)
[2017-08-31 20:52] LABS: BASOPHIL % 0.4 % (0.0-0.4); Eosinophil % 7.7 % (0.00-5.0); Granulocytes % 64.8 % (36.0-66.0); Lymphocytes % 17.3 % (24.0-44.0); Mean Cell Volume 87.9 fl (78-100); Mean Corpuscular Hemoglobin 27.9 pg (26-32); Mean Platelet Volume 9.3 fl (6-9.5); Monocytes % 9.8 % (0.0-12.0); Platelet Count 556 K/mm3 (150-450); Red Blood Count 4.05 M/mm3 (4.1-5.4); Red Cell Distribution Width 15.8 % (11.5-14.0); White Blood Count 11.3 K/mm3 (4.0-10.5)
[2017-08-31 21:08] LABS: Carbon Dioxide 27.1 mEq/L (21-32); Potassium 4.9 mEq/L (3.5-5.1)
[2017-08-31] MEDS ORDERED: PROVENTIL 2.5 MG/3 ML NEB IH ONE ×2 (21:20→21:23)
[2017-08-31] MEDS ORDERED: TORAdol 30 mg Injection IV ONE (21:20)
[2017-08-31] MEDS ORDERED: TORAdol 30 mg Injection ONE (21:23)
[2017-08-31 22:22] VITALS: BP 154/104; PULSE 82; O2SAT 98
--- NOTE | 2017-09-01 08:46 | XRAY ---
Indication: Cough, congestion, and chest pain. Comparison: October 27, 2015. PA/lateral chest again hyperinflated and clear. Heart is not enlarged. Bony thorax intact with stable minimal scoliosis. Impression: Stable nonacute hyperinflated chest.
== END 2017-08-31 22:23 | disposition home or self-care (01) ==
LOC: ED 20:09
DX: J98.01 Acute bronchospasm (principal); R05 Cough; R06.02 Shortness of breath; R07.89 Other chest pain; I10 Essential (primary) hypertension
CPT/HCPCS: 36000; 36415; 71020; 80048; 83605; 85025; 96374; 96375; 99283; J1885; J2930; A9270-GY

== ENCOUNTER 2017-12-25 09:08 | Observation (INO) | payer OTHER ==
[2017-12-25] MEDS ORDERED: Zofran 4 MG/2 ML VIAL IV ONE ×2 (09:26→11:42)
[2017-12-25] MEDS ORDERED: Sodium Chloride 0.9% 1000 ML 1,000 ML IV STA (09:26)
[2017-12-25] MEDS ORDERED: TORAdol 30 mg Injection IV ONE (09:26)
--- NOTE | 2017-12-25 09:30 | ERPHSYRPT ---
- History of Present Illness Time Seen by Provider: 12/25/17 09:27 Historian: patient Patient Subjective Stated Complaint: pt reports she has had decreased appetite for 2 days with mild ache in low abd-reports waking up this morning at 0100 vomit x 3-diarrhea x 15 and increase in body aches Triage Nursing Assessment: pt pale warm and [id number] with no difficulty-abd soft and nontender to palp-pt denies rebound tenderness Physician History: mild to mod lower abdominal cramps for 2 day, no injury, +NVD but no blood, no fever, lmp 2 weeks ago Allergies/Adverse Reactions: No Known Drug Allergies Allergy (Verified 12/25/17 09:23) Home Medications: Labetalol HCl 100 mg [Trandate 100 MG] 300 mg PO HS 04/30/17 [History] Ranitidine HCl 150 mg PO Q4H PRN PRN 04/30/17 [History] Hx Tetanus, Diphtheria Vaccination/Date Given: Yes Hx Influenza Vaccination/Date Given: No Hx Pneumococcal Vaccination/Date Given: No Immunizations Up to Date: Yes - Review of Systems Constitutional: No Fever Eyes: No Eye Redness Ears, Nose, & Throat: No Throat Pain Respiratory: No Cough Cardiac: No Chest Pain Abdominal/Gastrointestinal: Abdominal Pain, Nausea, Vomiting, Diarrhea, No Hematochezia Genitourinary Symptoms: No Dysuria Musculoskeletal: No Back Pain Skin: No Rash Neurological: No Dizziness - Past Medical History Pertinent Past Medical History: Yes Neurological History: No Pertinent History ENT History: No Pertinent History Cardiac History: Hypertension Respiratory History: No Pertinent History Endocrine Medical History: No Pertinent History Musculoskeletal History: Arthritis GI Medical History: GERD History: Other Psycho-Social History: Anxiety, Depression Female Reproductive Disorders: No Pertinent History Other Medical History: PAST DX OF STAGE I KIDNEY FAILURE. 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 - Social History Smoking Status: Never smoker Exposure to second hand smoke: Yes Drug Use: none Patient Lives Alone: No - Female History Hx Last Menstrual Period: 2 wks ago Hx Now: No - Nursing Vital Signs Nursing Vital Signs: Initial Vital Signs Temperature 97.2 F 12/25/17 09:14 Pulse Rate 96 H 12/25/17 09:14 Respiratory Rate 18 12/25/17 09:14 Blood Pressure 141/115 12/25/17 09:14 O2 Sat by Pulse Oximetry 99 12/25/17 09:14 Pain Scale Pain Intensity 4 - Physical Exam General Appearance: no apparent distress Eye Exam: eyes nml inspection Ears, Nose, Throat Exam: moist mucous membranes Neck Exam: normal inspection Respiratory Exam: normal breath sounds Cardiovascular Exam: regular rate/rhythm Gastrointestinal/Abdomen Exam: soft, tenderness, No rebound Extremity Exam: normal inspection Neurologic Exam: alert, oriented x 3, cooperative Skin Exam: warm, dry SpO2 Interpretation: normal SpO2: 99 Oxygen Delivery: Room Air - Course Nursing assessment & vital signs reviewed: Yes - CT Exams Abdomen/Pelvis CT Interpretation: Discussed w/radiologist, Other (no obstruction, +right ovarian cyst) Ordered Tests: Active Orders 24 hr Category Date Time Status IV Insertion STAT Care 12/25/17 09:26 Active ABDOMEN AND PELVIS W/0 CONTRAS [CT] Stat Exams 12/25/17 10:55 Completed PELVIS TRANS VAGINAL [US] Stat Exams 12/25/17 11:40 Completed CBC W DIFF Stat Lab 12/25/17 09:47 Completed CMP Stat Lab 12/25/17 09:47 Completed CULTURE,URINE Stat Lab 12/25/17 09:47 Received HCG QUALITATIVE,SERUM Stat Lab 12/25/17 09:40 Completed LIPASE Stat Lab 12/25/17 09:47 Completed UA W/ MICROSCOPIC Stat Lab 12/25/17 09:47 Completed Transfer Order Routine Transfer 12/25/17 Ordered Medication Summary Generic Name Dose Route Start Last Admin Trade Name Freq PRN Reason Stop Dose Admin Ceftriaxone Sodium/Dextrose 1 g in 50 mls @ 100 mls/hr 12/25/17 13:44 Rocephin 1 Gm-D5w 50 Ml Bag IV 12/25/17 14:13 STAT STA Morphine Sulfate 4 mg 12/25/17 11:45 12/25/17 11:53 Morphine Sulfate 4 Mg Inj IV 12/30/17 11:44 4 mg Q2H PRN PRN Administration PAIN Discontinued Medications Generic Name Dose Route Start Last Admin Trade Name Freq PRN Reason Stop Dose Admin Sodium Chloride 1,000 mls @ 999 mls/hr 12/25/17 09:26 12/25/17 09:53 Sodium Chloride 0.9% 1000 Ml IV 12/25/17 10:26 999 mls/hr .Q1H1M STA Administration Sodium Chloride Confirm 12/25/17 09:47 Sodium Chloride 0.9% 1000 Ml Administered 12/25/17 09:48 Dose 1,000 mls @ ud .ROUTE .STK-MED ONE Ketorolac Tromethamine 30 mg 12/25/17 09:26 12/25/17 09:52 Toradol 30 Mg Injection IV 12/25/17 09:27 30 mg STAT ONE Administration Ketorolac Tromethamine Confirm 12/25/17 09:47 Toradol 30 Mg Injection Administered 12/25/17 09:48 Dose 30 mg .ROUTE .STK-MED ONE Ondansetron HCl 4 mg 12/25/17 09:26 12/25/17 09:52 Zofran 4 Mg/2 Ml Vial IV 12/25/17 09:27 4 mg STAT ONE Administration Ondansetron HCl Confirm 12/25/17 09:47 Zofran 4 Mg/2 Ml Vial Administered 12/25/17 09:48 Dose 4 mg .ROUTE .STK-MED ONE Ondansetron HCl 4 mg 12/25/17 11:42 12/25/17 11:45 Zofran 4 Mg/2 Ml Vial IV 12/25/17 11:43 4 mg STAT ONE Administration Ondansetron HCl Confirm 12/25/17 11:43 Zofran 4 Mg/2 Ml Vial Administered 12/25/17 11:44 Dose 4 mg .ROUTE .STK-MED ONE Lab/Rad Data: Laboratory Result Diagrams 12/25/17 09:47 12/25/17 09:47 Laboratory Results 12/25/17 12/25/17 12/25/17 Range/Units 09:47 09:47 09:47 WBC 17.1 H (4.0-10.5) K/mm3 RBC 4.83 (4.1-5.4) M/mm3 Hgb 13.3 (12.0-16.0) gm/dl Hct 41.0 (35-47) % MCV 84.9 (78-100) fl MCH 27.5 (26-32) pg MCHC 32.4 (32-36) g/dl RDW 15.9 H (11.5-14.0) % Plt Count 844 H (150-450) K/mm3 MPV 8.9 (6-9.5) fl Gran % 85.9 H (36.0-66.0) % Eos # (Auto) 0 (0-0.5) Lymphocytes % 7.4 L (24.0-44.0) % Monocytes % 6.3 (0.0-12.0) % Eosinophils % 0.0 (0.00-5.0) % Basophils % 0.4 (0.0-0.4) % Basophils # 0.06 (0-0.4) Sodium 145 (137-145) mmol/L Potassium 4.6 (3.5-5.1) mmol/L Chloride 102 (98-107) mmol/L Carbon Dioxide 27 (22-30) mmol/L Anion Gap 20.2 H (5-15) MEQ/L BUN 18 H (7-17) mg/dL Creatinine 1.15 H (0.52-1.04) mg/dL Estimated GFR > 60 ML/MIN Glucose 111 H (74-106) mg/dL Calcium 10.3 H (8.4-10.2) mg/dL Total Bilirubin 0.40 (0.2-1.3) mg/dL AST 20 (14-36) U/L ALT 16 (0-35) U/L Alkaline Phosphatase 79 (38-126) U/L Serum Total Protein 8.9 H (6.3-8.2) g/dL Albumin 4.9 (3.5-5.0) g/dL Lipase 311 H (23-300) U/L Serum , Qual (Negative) Ur Collection Type CCMS Urine Color YELLOW (YELLOW) Urine Appearance CLOUDY (CLEAR) Urine pH 5.0 (5-6) Ur Specific [place] 1.030 (1.005-1.025) Urine Protein 500 (Negative) Urine Ketones NEGATIVE (NEGATIVE) Urine Blood 5-10 (0-5) Hiram/ul Urine Nitrite NEGATIVE (NEGATIVE) Urine Bilirubin NEGATIVE (NEGATIVE) Urine Urobilinogen NORMAL (0-1) mg/dL Ur Leukocyte Esterase 1+ (NEGATIVE) Urine Microscopic RBC 0-2 (0-2) /HPF Urine Microscopic WBC 5-10 (0-5) /HPF Ur Epithelial Cells MODERATE (FEW) /HPF Amorphous Crystals MANY (NEGATIVE) /HPF Urine Bacteria PACKED (NEGATIVE) /HPF Urine Culture Reflexed YES (NO) Urine Glucose NEGATIVE (NEGATIVE) mg/dL Specimen Received 12/25 94412/25/17 Range/Units 09:40 WBC (4.0-10.5) K/mm3 RBC (4.1-5.4) M/mm3 Hgb (12.0-16.0) gm/dl Hct (35-47) % MCV (78-100) fl MCH (26-32) pg MCHC (32-36) g/dl RDW (11.5-14.0) % Plt Count (150-450) K/mm3 MPV (6-9.5) fl Gran % (36.0-66.0) % Eos # (Auto) (0-0.5) Lymphocytes % (24.0-44.0) % Monocytes % (0.0-12.0) % Eosinophils % (0.00-5.0) % Basophils % (0.0-0.4) % Basophils # (0-0.4) Sodium (137-145) mmol/L Potassium (3.5-5.1) mmol/L Chloride (98-107) mmol/L Carbon Dioxide (22-30) mmol/L Anion Gap (5-15) MEQ/L BUN (7-17) mg/dL Creatinine (0.52-1.04) mg/dL Estimated GFR ML/MIN Glucose (74-106) mg/dL Calcium (8.4-10.2) mg/dL Total Bilirubin (0.2-1.3) mg/dL AST (14-36) U/L ALT (0-35) U/L Alkaline Phosphatase (38-126) U/L Serum Total Protein (6.3-8.2) g/dL Albumin (3.5-5.0) g/dL Lipase (23-300) U/L Serum , Qual NEGATIVE (Negative) Ur Collection Type Urine Color (YELLOW) Urine Appearance (CLEAR) Urine pH (5-6) Ur Specific [place] (1.005-1.025) Urine Protein (Negative) Urine Ketones (NEGATIVE) Urine Blood (0-5) Hiram/ul Urine Nitrite (NEGATIVE) Urine Bilirubin (NEGATIVE) Urine Urobilinogen (0-1) mg/dL Ur Leukocyte Esterase (NEGATIVE) Urine Microscopic RBC (0-2) /HPF Urine Microscopic WBC (0-5) /HPF Ur Epithelial Cells (FEW) /HPF Amorphous Crystals (NEGATIVE) /HPF Urine Bacteria (NEGATIVE) /HPF Urine Culture Reflexed (NO) Urine Glucose (NEGATIVE) mg/dL Specimen Received - Progress Progress: unchanged Discussed with : Pura Will see patient in: hospital (observation) Counseled pt/family regarding: lab results, diagnosis, rad results - Departure Time of Disposition: 13:50 Departure Disposition: Observation Clinical Impression: UTI (urinary tract infection) Qualifiers: Urinary tract infection type: acute cystitis Hematuria presence: with hematuria Qualified Code(s): N30.01 - Acute cystitis with hematuria Condition: Stable Critical Care Time: No Referrals: JOANNE BAL MD [Primary Care Provider] -
[2017-12-25] MEDS ORDERED: TORAdol 30 mg Injection ONE (09:47)
[2017-12-25] MEDS ORDERED: Sodium Chloride 0.9% 1000 ML 1,000 ML ONE (09:47)
[2017-12-25] MEDS ORDERED: Zofran 4 MG/2 ML VIAL ONE ×2 (09:47→11:43)
[2017-12-25 09:58] LABS: BASOPHIL % 0.4 % (0.0-0.4); Basophil (Absolute #) 0.06 (0-0.4); Eosinophil (Absolute #) 0 (0-0.5); Granulocyte Absolute (ANC) 14.68 (1.4-6.9); Granulocytes % 85.9 % (36.0-66.0); Hemoglobin 13.3 gm/dl (12.0-16.0); Lymphocyte (Absolute #) 1.26 (1.0-4.6); Lymphocytes % 7.4 % (24.0-44.0); Mean Cell Volume 84.9 fl (78-100); Mean Corpuscular Hemoglobin 27.5 pg (26-32); Mean Corpuscular Hgb Concent. 32.4 g/dl (32-36); Mean Platelet Volume 8.9 fl (6-9.5); Monocyte (Absolute #) 1.08 (0.0-1.3); Monocytes % 6.3 % (0.0-12.0); Platelet Count 844 K/mm3 (150-450); Red Blood Count 4.83 M/mm3 (4.1-5.4); Red Cell Distribution Width 15.9 % (11.5-14.0); White Blood Count 17.1 K/mm3 (4.0-10.5)
[2017-12-25 10:05] LABS: Appearance CLOUDY (CLEAR); Bilirubin NEGATIVE (NEGATIVE); Glucose NEGATIVE (NEGATIVE); Ketones NEGATIVE (NEGATIVE); Leukocyte Esterase 1+ (NEGATIVE); Nitrite NEGATIVE (NEGATIVE); Protein,Urine Dip 500 (Negative); Urobilinogen NORMAL mg/dL (0-1)
[2017-12-25 10:06] LABS: Amourphous Crystal MANY /HPF (NEGATIVE); Bacteria PACKED /HPF (NEGATIVE); Epithelial Cells MODERATE /HPF (FEW)
[2017-12-25 10:10] LABS: ALBUMIN 4.9 g/dL (3.5-5.0); ALKALINE PHOSPHATASE 79 U/L (38-126); ANION GAP 20.2 MEQ/L (5-15); BLOOD UREA NITROGEN 18 mg/dL (7-17); CHLORIDE 102 mmol/L (98-107); Calcium 10.3 mg/dL (8.4-10.2); Carbon Dioxide 27 mmol/L (22-30); Creatinine 1 1.15 mg/dL (0.52-1.04); Glucose 111 mg/dL (74-106); LIPASE 311 U/L (23-300); Potassium 4.6 mmol/L (3.5-5.1); SGOT/AST 20 U/L (14-36); SGPT/ALT 16 U/L (0-35); SODIUM 145 mmol/L (137-145); Total Protein 8.9 g/dL (6.3-8.2)
--- NOTE | 2017-12-25 11:36 | XRAY ---
Indication: Right lower quadrant pain. Multiple contiguous axial images obtained through the abdomen and pelvis without contrast as ordered. Comparison: September 27, 2015. Lung bases again clear. Heart is not enlarged. Noncontrasted stomach and bowel loops appear nonobstructed. Normal appendix. New 2.5 cm right ovary cyst. No free fluid/air. Gallbladder partially contracted without gallstones. Remaining liver, gallbladder, pancreas, spleen, adrenal glands, kidneys, ureters, bladder, uterus, and aorta appear unremarkable for noncontrast exam. Osseous structures intact. No ventral/inguinal hernias. Impression: 1. New 2.5 cm right ovary cyst. 2. No acute intra-abdominal/pelvic abnormalities on this noncontrast exam. CT DI 19.56
[2017-12-25] MEDS: MORPHINE SULFATE 4 MG INJ IV PRN ×2 (11:53→14:04)
--- NOTE | 2017-12-25 12:44 | XRAY ---
Indication: Right lower quadrant pain. Two-dimensional transvaginal pelvic ultrasound was performed. Comparison: November 08, 2010. Uterus is now retroverted measuring 7.5 x 4.8 x 6.3 sinuses. No focal solid/cystic mass. Endometrial stripe measures 5.8 mm. No endometrial cavity mass or fluid collection. Right ovary measures 3.8 x 3.7 x 2.5 cm and the left measures 2.5 x 2.2 x 2.3 cm. Normal perfusion and follicular cysts bilaterally, largest on the right ovary measuring 2.4 cm. No free fluid. Impression: 2.4 cm dominant right ovary cyst. Remaining transvaginal pelvic sonogram is negative.
[2017-12-25] MEDS ORDERED: ROCEPHIN 1 Gm-D5w 50 ml Bag** 1 G/50 ML IVPB IV STA (13:44)
[2017-12-25] MEDS ORDERED: ROCEPHIN 1 Gm-D5w 50 ml Bag** 1 G/50 ML IVPB IV ONE (14:06)
[2017-12-25] MEDS ORDERED: Zofran 4 MG/2 ML VIAL IV PRN (15:00)
[2017-12-25] MEDS: Sodium Chloride 0.9% 1000 ML 1,000 ML IV SCH (15:42)
[2017-12-25] MEDS ORDERED: NON-FORMULARY ITEM (Ranitidine Hcl [Ranitidine Hcl] 150 MG) PO PRN (16:49)
[2017-12-25] MEDS ORDERED: Trandate 100 MG PO PRN (16:49)
[2017-12-25] MEDS ORDERED: Pepcid 20 MG PO PRN (16:57)
[2017-12-25] MEDS: hydroDIURIL 25 MG PO SCH (17:40)
[2017-12-25] MEDS: Zestril 20 MG PO SCH (17:41)
[2017-12-25] MEDS: MORPHINE SULFATE 2 MG INJ IV PRN ×2 (17:42→22:24)
[2017-12-25] MEDS: TYLENOL 325 MG PO PRN (21:13)
[2017-12-26] MEDS: Sodium Chloride 0.9% 1000 ML 1,000 ML IV SCH (02:00)
[2017-12-26] MEDS: MORPHINE SULFATE 2 MG INJ IV PRN ×2 (04:41→09:32)
[2017-12-26 05:51] LABS: BASOPHIL % 0.4 % (0.0-0.4); Basophil (Absolute #) 0.04 (0-0.4); Eosinophil % 0.1 % (0.00-5.0); Eosinophil (Absolute #) 0.01 (0-0.5); Granulocyte Absolute (ANC) 5.71 (1.4-6.9); Granulocytes % 59.1 % (36.0-66.0); Hematocrit 32.1 % (35-47); Hemoglobin 10.2 gm/dl (12.0-16.0); Mean Corpuscular Hemoglobin 27.6 pg (26-32); Mean Corpuscular Hgb Concent. 31.8 g/dl (32-36); Monocytes % 12.4 % (0.0-12.0); Platelet Count 682 K/mm3 (150-450); Red Blood Count 3.69 M/mm3 (4.1-5.4); Red Cell Distribution Width 15.9 % (11.5-14.0); White Blood Count 9.7 K/mm3 (4.0-10.5)
[2017-12-26] MEDS ORDERED: ROCEPHIN 1 Gm-D5w 50 ml Bag** 1 G/50 ML IVPB IV SCH (10:00)
[2017-12-26] MEDS ORDERED: NON-FORMULARY ITEM (Lisinopril/Hydrochlorothiazide [Lisinopril-Hctz 20-12.5 Mg Tab] 1 EACH PO SCH (10:00)
[2017-12-26] MEDS: hydroDIURIL 25 MG PO SCH (10:21)
[2017-12-26] MEDS: Zestril 20 MG PO SCH (10:22)
[2017-12-26 12:03] VITALS: BP 121/72; PULSE 87; O2SAT 99
[2017-12-26] MEDS: TYLENOL 325 MG PO PRN (12:21)
--- NOTE | 2017-12-26 13:09 | PCM.SSS ---
History of Present Illness - Chief Complaint Chief Complaint: abdominal pain for 1-2 days History of Present Illness: is a 22 year old female. pt reports she has had decreased appetite for 2 days with mild ache in low abd-reports waking up this morning at 0100 vomit x 3-diarrhea x 15 and increase in body aches - Review of Systems Constitutional: No Fever, No Chills Eyes: No Symptoms Ears, Nose, & Throat: No Symptoms Respiratory: No Cough, No Short Of Breath Cardiac: No Chest Pain, No Edema, No Syncope Abdominal/Gastrointestinal: Abdominal Pain, Nausea, Vomiting, Diarrhea Genitourinary Symptoms: No Dysuria Musculoskeletal: No Back Pain, No Neck Pain Skin: No Rash Neurological: No Dizziness, No Focal Weakness, No Sensory Changes Psychological: No Symptoms Endocrine: No Symptoms Hematologic/Lymphatic: No Symptoms Immunological/Allergic: No Symptoms Medications & Allergies Home Medications: Home Medication List Labetalol HCl 100 mg [Trandate 100 MG] 300 mg PO Q4H PRN PRN 04/30/17 [ History Confirmed 12/25/17] Ranitidine HCl 150 mg PO Q4H PRN PRN 04/30/17 [History Confirmed 12/25/17] Lisinopril/Hydrochlorothiazide [Lisinopril-Hctz 20-12.5 mg Tab] 1 each PO DAILY 12/25/17 [History Confirmed 12/25/17] Ciprofloxacin [Cipro 500 MG] 500 mg PO BID #15 tablet 12/26/17 [Rx] Etodolac 400 mg [Lodine 400 mg] 400 mg PO TID #15 tablet 12/26/17 [Rx] Allergies/Adverse Reactions: Allergies Allergy/AdvReac Type Severity Reaction Status Date / Time No Known Drug Allergies Allergy Verified 12/25/17 09:23 - Past Medical History Past Medical History: Yes Neurological History: No Pertinent History ENT History: No Pertinent History Cardiac History: Hypertension Respiratory History: No Pertinent History Endocrine Medical History: No Pertinent History Musculoskelatal History: Arthritis GI Medical History: GERD History: Other Pyscho-Social History: Anxiety, Depression Reproductive Disorders: No Pertinent History Comment: PAST DX OF STAGE I KIDNEY FAILURE. 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 - Social History Smoking Status: Never smoker Exposure to second hand smoke: Yes Alcohol: None Drug Use: none - Physical Exam Vital Signs: Vital Signs - 24 hr Temp Pulse Resp BP Pulse Ox 12/26/17 12:00 98.4 F 87 18 121/72 99 12/26/17 07:58 98.2 F 74 18 126/76 98 12/26/17 04:15 97.9 F 76 16 120/75 98 12/25/17 23:34 98.6 F 81 15 110/59 98 12/25/17 19:49 98.8 F 87 16 116/58 98 12/25/17 14:40 98.4 F 82 160/110 12/25/17 14:37 98.5 F 82 16 160/110 98 12/25/17 13:50 99 12/25/17 13:50 98.4 F 82 16 160/110 98 12/25/17 13:21 87 18 158/104 97 General Appearance: no apparent distress, alert Neurologic Exam: alert, oriented x 3, cooperative, normal mood/affect, nml cerebellar function, nml station & gait, sensation nml, No motor deficits Eye Exam: PERRL/EOMI, eyes nml inspection Ears, Nose, Throat Exam: normal ENT inspection, TMs normal, pharynx normal, moist mucous membranes Neck Exam: normal inspection, non-tender, supple, full range of motion Respiratory Exam: normal breath sounds, lungs clear, No respiratory distress Cardiovascular Exam: regular rate/rhythm, normal heart sounds, normal peripheral pulses Gastrointestinal/Abdomen Exam: soft, normal bowel sounds, No tenderness, No mass Back Exam: normal inspection, normal range of motion, No CVA tenderness, No vertebral tenderness Extremity Exam: normal inspection, normal range of motion, pelvis stable Skin Exam: normal color, warm, dry, No rash Lymphatic Exam: No adenopathy Results - Labs Lab/Micro Results: Lab Results-Last 24 Hours 12/26/17 Range/Units 05:24 WBC 9.7 (4.0-10.5) K/mm3 RBC 3.69 L (4.1-5.4) M/mm3 Hgb 10.2 L (12.0-16.0) gm/dl Hct 32.1 L (35-47) % MCV 87.0 (78-100) fl MCH 27.6 (26-32) pg MCHC 31.8 L (32-36) g/dl RDW 15.9 H (11.5-14.0) % Plt Count 682 H (150-450) K/mm3 MPV 9.0 (6-9.5) fl Gran % 59.1 (36.0-66.0) % Eos # (Auto) 0.01 (0-0.5) Lymphocytes % 28.0 (24.0-44.0) % Monocytes % 12.4 H (0.0-12.0) % Eosinophils % 0.1 (0.00-5.0) % Basophils % 0.4 (0.0-0.4) % Absolute Granulocytes 5.71 (1.4-6.9) Basophils # 0.04 (0-0.4) Assessment/Plan (1) UTI (urinary tract infection) Current Visit: Yes Status: Acute Qualifiers: Urinary tract infection type: acute cystitis Hematuria presence: with hematuria Qualified Code(s): N30.01 - Acute cystitis with hematuria Code(s): N39.0 - URINARY TRACT INFECTION, SITE NOT SPECIFIED (2) Generalized weakness Current Visit: No Status: Acute Code(s): R53.1 - WEAKNESS (3) Hypertension Current Visit: No Status: Acute Qualifiers: Hypertension type: essential hypertension Qualified Code(s): I10 - Essential (primary) hypertension Code(s): I10 - ESSENTIAL (PRIMARY) HYPERTENSION Hospital Summary - Hospital Course Hospital Course: Chief Complaint Diagnosis abdominal pain for 1-2 days Allergies Allergy/AdvReac Type Severity Reaction Status Date / Time No Known Drug Allergies Allergy Verified 12/25/17 09:23 Vital Signs (Last 24 hours) Temp Pulse Resp BP Pulse Ox 12/26/17 12:00 98.4 F 87 18 121/72 99 12/26/17 07:58 98.2 F 74 18 126/76 98 12/26/17 04:15 97.9 F 76 16 120/75 98 12/25/17 23:34 98.6 F 81 15 110/59 98 12/25/17 19:49 98.8 F 87 16 116/58 98 12/25/17 14:40 98.4 F 82 160/110 12/25/17 14:37 98.5 F 82 16 160/110 98 12/25/17 13:50 99 12/25/17 13:50 98.4 F 82 16 160/110 98 12/25/17 13:21 87 18 158/104 97 Home Medications Medication Instructions Recorded Confirmed Last Taken Type Lisinopril/Hydrochlorothiazide 1 each PO DAILY 12/25/17 12/25/17 12/24/17 History [Lisinopril-Hctz 20-12.5 mg Tab] Current Medications Generic Name Dose Route Start Last Admin Trade Name Freq PRN Reason Stop Dose Admin Acetaminophen 650 mg 12/25/17 15:00 12/26/17 12:21 Tylenol 325 Mg PO 01/24/18 14:59 650 mg Q4H PRN PRN Administration PAIN AND/OR FEVER Famotidine 20 mg 12/25/17 16:57 Pepcid 20 Mg PO 01/24/18 16:56 Q4H PRN PRN GERD Hydrochlorothiazide 12.5 mg 12/25/17 17:00 12/26/17 10:21 Hydrodiuril 25 Mg PO 01/24/18 16:59 Not Given DAILY RAMIREZ Ceftriaxone Sodium/Dextrose 1 g in 50 mls @ 100 mls/hr 12/26/17 10:00 09:33 Rocephin 1 Gm-D5w 50 Ml Bag IV 01/25/18 09:59 100 mls/hr Q24H10 RAMIREZ Administration Sodium Chloride 1,000 mls @ 100 mls/hr 12/25/17 15:00 12/26/17 02:00 Sodium Chloride 0.9% 1000 Ml IV 01/24/18 14:59 100 mls/hr .Q10H RAMIREZ Administration Labetalol HCl 300 mg 12/25/17 16:49 12/25/17 17:41 Trandate 100 Mg PO 01/24/18 16:48 300 mg Q4H PRN PRN Administration HYPERTENSION Lisinopril 20 mg 12/25/17 17:00 12/26/17 10:22 Zestril 20 Mg PO 01/24/18 16:59 Not Given DAILY RAMIREZ Morphine Sulfate 2 mg 12/25/17 15:00 12/26/17 09:32 Morphine Sulfate 2 Mg Inj IV 12/30/17 14:59 2 mg Q4H PRN PRN Administration PAIN Ondansetron HCl 4 mg 12/25/17 15:00 Zofran 4 Mg/2 Ml Vial IV 01/24/18 14:59 Q6H PRN PRN NAUSEA/VOMITING Discontinued Medications Generic Name Dose Route Start Last Admin Trade Name Freq PRN Reason Stop Dose Admin Sodium Chloride 1,000 mls @ 999 mls/hr 12/25/17 09:26 12/25/17 09:53 Sodium Chloride 0.9% 1000 Ml IV 12/25/17 10:26 999 mls/hr .Q1H1M STA Administration Sodium Chloride Confirm 12/25/17 09:47 Sodium Chloride 0.9% 1000 Ml Administered 12/25/17 09:48 Dose 1,000 mls @ ud .ROUTE .STK-MED ONE Ceftriaxone Sodium/Dextrose 1 g in 50 mls @ 100 mls/hr 12/25/17 13:44 14:07 Rocephin 1 Gm-D5w 50 Ml Bag IV 12/25/17 14:13 100 mls/hr STAT STA Administration Ceftriaxone Sodium/Dextrose Confirm 12/25/17 14:06 Rocephin 1 Gm-D5w 50 Ml Bag Administered 12/25/17 14:07 Dose 1 g in 50 mls @ ud IV .STK-MED ONE Ketorolac Tromethamine 30 mg 12/25/17 09:26 12/25/17 09:52 Toradol 30 Mg Injection IV 12/25/17 09:27 30 mg STAT ONE Administration Ketorolac Tromethamine Confirm 12/25/17 09:47 Toradol 30 Mg Injection Administered 12/25/17 09:48 Dose 30 mg .ROUTE .STK-MED ONE Morphine Sulfate 4 mg 12/25/17 11:45 12/25/17 14:04 Morphine Sulfate 4 Mg Inj IV 12/30/17 11:44 4 mg Q2H PRN PRN Administration PAIN Ondansetron HCl 4 mg 12/25/17 09:26 12/25/17 09:52 Zofran 4 Mg/2 Ml Vial IV 12/25/17 09:27 4 mg STAT ONE Administration Ondansetron HCl Confirm 12/25/17 09:47 Zofran 4 Mg/2 Ml Vial Administered 12/25/17 09:48 Dose 4 mg .ROUTE .STK-MED ONE Ondansetron HCl 4 mg 12/25/17 11:42 12/25/17 11:45 Zofran 4 Mg/2 Ml Vial IV 12/25/17 11:43 4 mg STAT ONE Administration Ondansetron HCl Confirm 12/25/17 11:43 Zofran 4 Mg/2 Ml Vial Administered 12/25/17 11:44 Dose 4 mg .ROUTE .STK-MED ONE Intake & Output (Last 24 hours) 12/24/17 12/25/17 12/26/17 12/27/17 11:59 11:59 11:59 11:59 Intake Total 3953 350 Output Total 1000 Balance 3953 -650 Weight 83.915 kg 88.5 kg Microbiology Results (Last 24 hours) 12/25/17 09:47 Clean Catch Midstream Urine Culture - Preliminary <10K NORMAL SKIN JAKE PROBABLE SKIN CONTAMINANT Laboratory Results (Last 24 hours) 12/26/17 05:24 WBC 9.7 RBC 3.69 L Hgb 10.2 L Hct 32.1 L MCV 87.0 MCH 27.6 MCHC 31.8 L RDW 15.9 H Plt Count 682 H MPV 9.0 Gran % 59.1 Eos # (Auto) 0.01 Lymphocytes % 28.0 Monocytes % 12.4 H Eosinophils % 0.1 Basophils % 0.4 Absolute Granulocytes 5.71 Basophils # 0.04 Orders (Last 24 hours) Category Date Time Status Bedrest with BRP/BSC ROUTINE Activity 12/25/17 15:00 Active Ambulate Patient ROUTINE Care 12/26/17 09:09 Active Call Admit Doctor for Orders ON ADMISSION Care 12/25/17 15:00 Active Code Status Order ROUTINE Care 12/25/17 15:00 Active IV Care Q6H Care 12/25/17 15:[address] in Observation ROUTINE Care 12/25/17 15:00 Active Regular Diet Diet 12/25/17 Dinner Active CBC W DIFF AM.LAB Lab 12/26/17 05:24 Completed Acetaminophen 325 mg [Tylenol 325 mg] Med 12/25/17 15:00 Active 650 mg PO Q4H PRN PRN Ceftriaxone 1 GM/50 ML PREMIX* [ROCEPHIN 1 Gm-D5w 50 ml Med 12/26/17 10:00 Active Bag] 1 g in 50 ml IV Q24H10 Ceftriaxone 1 GM/50 ML PREMIX* [ROCEPHIN 1 Gm-D5w 50 ml Med 12/25/17 13:44 Discontinued Bag] 1 g in 50 ml IV STAT Ceftriaxone 1 GM/50 ML PREMIX* [ROCEPHIN 1 Gm-D5w 50 ml Med 12/25/17 14:06 Discontinued Bag] 1 g in 50 ml IV UD Famotidine 20 mg [Pepcid 20 MG] Med 12/25/17 16:57 Active 20 mg PO Q4H PRN PRN Hydrochlorothiazide 25 mg [hydroDIURIL 25 MG] Med 12/25/17 17:00 Active 12.5 mg PO DAILY Labetalol HCl 100 mg [Trandate 100 MG] Med 12/25/17 16:49 Active 300 mg PO Q4H PRN PRN Lisinopril 20 mg [Zestril 20 MG] Med 12/25/17 17:00 Active 20 mg PO DAILY Morphine Sulfate 2 mg Inj Med 12/25/17 15:00 Active 2 mg IV Q4H PRN PRN NaCl 0.9% 1000 ml [Sodium Chloride 0.9% 1000 ML] 1,000 Med 12/25/17 15:00 Active ml IV 100 mls/hr Ondansetron HCl 4 mg/2 ml [Zofran 4 MG/2 ML VIAL] Med 12/25/17 15:00 Active 4 mg IV Q6H PRN PRN Patient Care Notes (Last 24 hours) 12/25/17 15:50 Nursing Note by Shaina Bird admission assessment done, pt states she gets frequent UTI's, pt has asked for sprite to drink 3 times sine being in ER. asked pt if she drinks anything but carbonated drinks/sodas. pt laughed, visitor in room stated she drinks "pop" bad. she drinks a 40 ounce mountain dew about every 3 to 4 hours all day long. states she always gets urinary tract infections or bladder infections, "I get them at least once a year" Informed patient that she should increase her water, drink some cranberry juice. pt stated she doesn't like water or to drink juice. "I know I'm bad but I like my mountain dew." Pt also complaining of not being able to sleep at night, stating she only sleeps about 3 hours. Also informed pt this could be from the caffeine and sugar she is drinking. pt complained of lower abdomen that goes through to her back. states its a constant sharp to dull ache worse with movement, abd soft, some tenderness noted with palp. active bowel sounds X4 quads. continent of B/B. states has not noticed in change in her urine. denies fever. but states pain has been progressively getting worse the last 2 weeks. Initialized on 12/25/17 15:50 - END OF NOTE - Vitals & Intake/Output Vital Signs: Vital Signs Temperature 98.4 F 12/26/17 12:00 Pulse Rate 87 12/26/17 12:00 Respiratory Rate 18 12/26/17 12:00 Blood Pressure 121/72 12/26/17 12:00 O2 Sat by Pulse Oximetry 99 12/26/17 12:00 Intake & Output: Intake & Output 12/24/17 12/25/17 12/26/17 12/27/17 11:59 11:59 11:59 11:59 Intake Total 3953 350 Output Total 1000 Balance 3953 -650 Weight 88.5 kg - Lab Result Diagrams: 12/26/17 05:24 12/25/17 09:47 Lab Results-Last 24 Hrs: Lab Results-Last 24 Hours 12/26/17 Range/Units 05:24 WBC 9.7 (4.0-10.5) K/mm3 RBC 3.69 L (4.1-5.4) M/mm3 Hgb 10.2 L (12.0-16.0) gm/dl Hct 32.1 L (35-47) % MCV 87.0 (78-100) fl MCH 27.6 (26-32) pg MCHC 31.8 L (32-36) g/dl RDW 15.9 H (11.5-14.0) % Plt Count 682 H (150-450) K/mm3 MPV 9.0 (6-9.5) fl Gran % 59.1 (36.0-66.0) % Eos # (Auto) 0.01 (0-0.5) Lymphocytes % 28.0 (24.0-44.0) % Monocytes % 12.4 H (0.0-12.0) % Eosinophils % 0.1 (0.00-5.0) % Basophils % 0.4 (0.0-0.4) % Absolute Granulocytes 5.71 (1.4-6.9) Basophils # 0.04 (0-0.4) - Discharge Discharge Date: 12/26/17 Disposition: Home, Self-Care Condition: Stable Prescriptions: New Ciprofloxacin [Cipro 500 MG] 500 mg PO BID #15 tablet Etodolac 400 mg [Lodine 400 mg] 400 mg PO TID #15 tablet Continue Labetalol HCl 100 mg [Trandate 100 MG] 300 mg PO Q4H PRN PRN PRN Reason: Hypertension Ranitidine HCl 150 mg PO Q4H PRN PRN PRN Reason: Gerd Lisinopril/Hydrochlorothiazide [Lisinopril-Hctz 20-12.5 mg Tab] 1 each PO DAILY Follow up with: JOANNE BAL MD [Primary Care Provider] - 01/02/18 2:15 pm (at [facility] )
== END 2017-12-26 13:37 | disposition home or self-care (01) ==
LOC: ED 09:08 → MED SURG 14:33
PROVIDERS: ADMIT General Practice; ATTEND General Practice
DX: N39.0 Urinary tract infection, site not specified (principal); R53.1 Weakness; I10 Essential (primary) hypertension; M19.90 Unspecified osteoarthritis, unspecified site; K21.9 Gastro-esophageal reflux disease without esophagitis; F41.8 Other specified anxiety disorders
CPT/HCPCS: 36000; 36415; 74176; 76830; 80053; 81000; 83690; 84703; 85025; 87086; 96360; 96361; 96365; 96374; 96375; 96376; 99285; G0378; J0696; J1885; J2270; J2405; A9270-GY

== ENCOUNTER 2018-01-19 16:54 | Emergency (ER) | payer OTHER ==
[2018-01-19] MEDS ORDERED: Sodium Chloride 0.9% 1000 ML 1,000 ML IV STA (17:39)
[2018-01-19] MEDS ORDERED: Sodium Chloride 0.9% 1000 ML 1,000 ML ONE (17:46)
[2018-01-19 18:02] LABS: BASOPHIL % 0.5 % (0.0-0.4); Basophil (Absolute #) 0.04 (0-0.4); Eosinophil % 0.1 % (0.00-5.0); Eosinophil (Absolute #) 0.01 (0-0.5); Granulocyte Absolute (ANC) 6.43 (1.4-6.9); Granulocytes % 77.6 % (36.0-66.0); Hematocrit 38.1 % (35-47); Hemoglobin 12.3 gm/dl (12.0-16.0); Lymphocyte (Absolute #) 1.45 (1.0-4.6); Lymphocytes % 17.5 % (24.0-44.0); Mean Cell Volume 84.7 fl (78-100); Mean Corpuscular Hemoglobin 27.3 pg (26-32); Mean Corpuscular Hgb Concent. 32.3 g/dl (32-36); Mean Platelet Volume 8.9 fl (6-9.5); Monocyte (Absolute #) 0.36 (0.0-1.3); Monocytes % 4.3 % (0.0-12.0); Platelet Count 604 K/mm3 (150-450); Red Cell Distribution Width 15.2 % (11.5-14.0); White Blood Count 8.3 K/mm3 (4.0-10.5)
[2018-01-19] MEDS ORDERED: Hydromorphone 1 mg/ml Ampule IV ONE (18:10)
--- NOTE | 2018-01-19 18:10 | ERPHSYRPT ---
- History of Present Illness Time Seen by Provider: 01/19/18 17:30 Source: patient Exam Limitations: clinical condition Patient Subjective Stated Complaint: Bilateral Lower abdominal pain x2 weeks. Triage Nursing Assessment: Pt presents to the eD wtih complaints of bilateral lower abdominal pain with radation into back. Pt states onset x2 weeks. Pt states she was seen by PCP for complaint. Pt states pain meds prescribed by PCP made pain better but she is out of medications. No distress noted, skin PWD. Physician History: PATIENT WITH HISTORY OF BILATERAL LOWER ABDOMINAL PAINS X 2 WEEKS, EVALUATED AT [facility] 12/25/[address] [facility] [place] [facility] FOR EVALUATION LOWER ABDOMINAL PAIN ON 01/12/2018 WITH A NEGATIVE TRANSVAGINAL ULTRASOUND AND A NEGATIVE ABDOMINAL PELVIC CT WITH/WITHOUT INTRAVENOUS CONTRAST. . DENIES URINARY SYMPTOMS, FEVER, VAGINAL BLEEDING OR VAGINAL DISCHARGE. Timing/Duration: week(s) Activites at Onset: none Quality: sharpness, stabbing Onset Location: suprapubic Pain Radiation: none Severity of Pain-Max: severe Severity of Pain-Current: severe Sexual intercourse history: non-contributory Modifying Factors: Improves With: nothing Associated Symptoms: abdominal pain Allergies/Adverse Reactions: No Known Drug Allergies Allergy (Verified 12/25/17 09:23) Home Medications: Labetalol HCl 100 mg [Trandate 100 MG] 300 mg PO Q4H PRN PRN 04/30/17 [ History] Ranitidine HCl 150 mg PO Q4H PRN PRN 04/30/17 [History] Lisinopril/Hydrochlorothiazide [Lisinopril-Hctz 20-12.5 mg Tab] 1 each PO DAILY 12/25/17 [History] Hx Tetanus, Diphtheria Vaccination/Date Given: Yes Hx Influenza Vaccination/Date Given: No Hx Pneumococcal Vaccination/Date Given: No - Review of Systems Constitutional: No Fever, No Chills Eyes: No Symptoms Ears, Nose, & Throat: No Symptoms Respiratory: No Cough, No Dyspnea Cardiac: No Chest Pain, No Edema, No Syncope Abdominal/Gastrointestinal: Abdominal Pain, No Nausea, No Vomiting, No Diarrhea Genitourinary Symptoms: No Dysuria Musculoskeletal: No Back Pain, No Neck Pain Skin: No Rash Neurological: No Dizziness, No Focal Weakness, No Sensory Changes Psychological: No Symptoms Endocrine: No Symptoms All Other Systems: Reviewed and Negative - Past Medical History Pertinent Past Medical History: Yes Neurological History: No Pertinent History ENT History: No Pertinent History Cardiac History: Hypertension Respiratory History: No Pertinent History Endocrine Medical History: No Pertinent History Musculoskeletal History: Arthritis GI Medical History: GERD History: Other Psycho-Social History: Anxiety, Depression Female Reproductive Disorders: No Pertinent History Other Medical History: PAST DX OF STAGE I KIDNEY FAILURE. 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 - Social History Smoking Status: Never smoker Exposure to second hand smoke: Yes Drug Use: none Patient Lives Alone: No - Female History Hx Last Menstrual Period: 12/31/2017 Hx Now: No - Nursing Vital Signs Nursing Vital Signs: Initial Vital Signs Temperature 98.4 F 01/19/18 17:18 Pulse Rate 93 H 01/19/18 17:18 Respiratory Rate 15 01/19/18 17:18 Blood Pressure 185/118 01/19/18 17:18 O2 Sat by Pulse Oximetry 99 01/19/18 17:18 Pain Scale Pain Intensity 2 - Physical Exam General Appearance: no apparent distress, alert Eye Exam: PERRL/EOMI, eyes nml inspection Ears, Nose, Throat Exam: normal ENT inspection, TMs normal, pharynx normal, moist mucous membranes Neck Exam: normal inspection, non-tender, supple, full range of motion Respiratory Exam: normal breath sounds, lungs clear, No respiratory distress Cardiovascular Exam: regular rate/rhythm, normal heart sounds, normal peripheral pulses Gastrointestinal/Abdomen Exam: soft, normal bowel sounds, tenderness ( SUPRAPUBIC TENDERNESS), No mass Pelvic Exam: cervical motion tenderness, other (BILATERAL ADNEXA TENDERNESS) Back Exam: normal inspection, normal range of motion, No CVA tenderness, No vertebral tenderness Extremity Exam: normal inspection, normal range of motion, pelvis stable Neurologic Exam: alert, oriented x 3, cooperative, collections agent II-XII nml as tested, normal mood/affect, sensation nml, No motor deficits Skin Exam: normal color, warm, dry Lymphatic Exam: No adenopathy SpO2 Interpretation: normal SpO2: 99 Oxygen Delivery: Room Air Ordered Tests: Active Orders 24 hr Category Date Time Status IV Insertion STAT Care 01/19/18 17:39 Active BMP Stat Lab 01/19/18 17:57 Completed CBC W DIFF Stat Lab 01/19/18 17:57 Completed HCG,QUALITATIVE URINE Stat Lab 01/19/18 17:57 Completed Urine Triage Profile Stat Lab 01/19/18 17:57 Received Wet Prep Stat Lab 01/19/18 17:40 Completed Medication Summary Discontinued Medications Generic Name Dose Route Start Last Admin Trade Name Zach PRN Reason Stop Dose Admin Hydromorphone HCl 1 mg 01/19/18 18:10 01/19/18 18:31 Hydromorphone 1 Mg/Ml Ampule IV 01/19/18 18:11 1 mg STAT ONE Administration Hydromorphone HCl Confirm 01/19/18 18:30 Dilaudid 2 Mg Injection Administered 01/19/18 18:31 Dose 2 mg .ROUTE .STK-MED ONE Sodium Chloride 1,000 mls @ 999 mls/hr 01/19/18 17:39 01/19/18 17:53 Sodium Chloride 0.9% 1000 Ml IV 01/19/18 18:39 999 mls/hr .Q1H1M STA Administration Sodium Chloride Confirm 01/19/18 17:46 Sodium Chloride 0.9% 1000 Ml Administered 01/19/18 17:47 Dose 1,000 mls @ ud .ROUTE .STK-MED ONE Ceftriaxone Sodium/Dextrose 1 g in 50 mls @ 100 mls/hr 01/19/18 18:11 18:32 Rocephin 1 Gm-D5w 50 Ml Bag IV 01/19/18 18:40 100 mls/hr STAT STA Administration Ceftriaxone Sodium/Dextrose Confirm 01/19/18 18:30 Rocephin 1 Gm-D5w 50 Ml Bag Administered 01/19/18 18:31 Dose 1 g in 50 mls @ ud IV .STK-MED ONE Lab/Rad Data: Laboratory Result Diagrams 01/19/18 17:57 01/19/18 17:57 Laboratory Results 01/19/18 01/19/18 01/19/18 Range/Units 17:57 17:57 17:57 WBC 8.3 (4.0-10.5) K/mm3 RBC 4.50 (4.1-5.4) M/mm3 Hgb 12.3 (12.0-16.0) gm/dl Hct 38.1 (35-47) % MCV 84.7 (78-100) fl MCH 27.3 (26-32) pg MCHC 32.3 (32-36) g/dl RDW 15.2 H (11.5-14.0) % Plt Count 604 H (150-450) K/mm3 MPV 8.9 (6-9.5) fl Gran % 77.6 H (36.0-66.0) % Eos # (Auto) 0.01 (0-0.5) Absolute Lymphs (auto) 1.45 (1.0-4.6) Absolute Monos (auto) 0.36 (0.0-1.3) Lymphocytes % 17.5 L (24.0-44.0) % Monocytes % 4.3 (0.0-12.0) % Eosinophils % 0.1 (0.00-5.0) % Basophils % 0.5 (0.0-0.4) % Absolute Granulocytes 6.43 (1.4-6.9) Basophils # 0.04 (0-0.4) Sodium 141 (137-145) mmol/L Potassium 4.2 (3.5-5.1) mmol/L Chloride 103 (98-107) mmol/L Carbon Dioxide 26 (22-30) mmol/L Anion Gap 16.5 H (5-15) MEQ/L BUN 12 (7-17) mg/dL Creatinine 1.07 H (0.52-1.04) mg/dL Estimated GFR > 60.0 ML/MIN Glucose 118 H (74-106) mg/dL Calcium 10.4 H (8.4-10.2) mg/dL Urine HCG, Qual NEGATIVE (Negative) WBC (Wet Prep) RBC (Wet Prep) Epi Cells (Wet Prep) Bacteria (Wet Prep) Clue Cells (Wet Prep) Trichomonas (Wet Prep) Budding Yeast (Wet Prp) 01/19/18 Range/Units 17:40 WBC (4.0-10.5) K/mm3 RBC (4.1-5.4) M/mm3 Hgb (12.0-16.0) gm/dl Hct (35-47) % MCV (78-100) fl MCH (26-32) pg MCHC (32-36) g/dl RDW (11.5-14.0) % Plt Count (150-450) K/mm3 MPV (6-9.5) fl Gran % (36.0-66.0) % Eos # (Auto) (0-0.5) Absolute Lymphs (auto) (1.0-4.6) Absolute Monos (auto) (0.0-1.3) Lymphocytes % (24.0-44.0) % Monocytes % (0.0-12.0) % Eosinophils % (0.00-5.0) % Basophils % (0.0-0.4) % Absolute Granulocytes (1.4-6.9) Basophils # (0-0.4) Sodium (137-145) mmol/L Potassium (3.5-5.1) mmol/L Chloride (98-107) mmol/L Carbon Dioxide (22-30) mmol/L Anion Gap (5-15) MEQ/L BUN (7-17) mg/dL Creatinine (0.52-1.04) mg/dL Estimated GFR ML/MIN Glucose (74-106) mg/dL Calcium (8.4-10.2) mg/dL Urine HCG, Qual (Negative) WBC (Wet Prep) Rare RBC (Wet Prep) Few Epi Cells (Wet Prep) Few Bacteria (Wet Prep) Few Clue Cells (Wet Prep) None Seen Trichomonas (Wet Prep) None Seen Budding Yeast (Wet Prp) None Seen - Progress Progress: improved Progress Note: 01/19/18 18:20 IV NORMAL SALINE 1LITER/HR, DILAUDID 1MG IV, ROCEPHIN 1GM IVPB Counseled pt/family regarding: lab results, diagnosis, need for follow-up, rad results - Departure Time of Disposition: 19:43 Departure Disposition: Home Clinical Impression: PELVIC INFLAMMATORY DISEASE Condition: Stable Critical Care Time: No Referrals: JOANNE BAL MD [Primary Care Provider] - Additional Instructions: CONSULT YOUR PRIMARY CARE PROVIDER FOR REVIEW OF ALL ULTRASOUND AND CT SCANS STUDIES. PERCOGESIC 1-2 TABLETS EVERY 4 HOURS NEEDED FOR PAIN. ANTIBIOTIC DOXYCYCLINE 100MG TWICE DAILY FOR 14 DAYS. FLAGYL 500MG TWICE DAILY FOR 14 DAYS. Prescriptions: Acetaminophen/Diphenhydramine [Percogesic 325-12.5 mg Tablet] 2 each PO Q4- 6HPRN PRN #20 tablet PRN Reason: Pain Doxycycline Hyclate 100 mg [Vibramycin 100 MG] 100 mg PO BID #14 tab Metronidazole 500 mg [Flagyl 500 MG] 500 mg PO BID #28 tablet
[2018-01-19] MEDS ORDERED: ROCEPHIN 1 Gm-D5w 50 ml Bag** 1 G/50 ML IVPB IV STA (18:11)
[2018-01-19 18:24] VITALS: PULSE 90
[2018-01-19 18:26] LABS: Bacteria Few; Clue Cells None Seen; Red Blood Cells Few; Trichomonas None Seen; White Blood Cells Rare
[2018-01-19] MEDS ORDERED: ROCEPHIN 1 Gm-D5w 50 ml Bag** 1 G/50 ML IVPB IV ONE (18:30)
[2018-01-19] MEDS ORDERED: DILAUDID 2 MG INJECTION ONE (18:30)
[2018-01-19 18:37] LABS: ANION GAP 16.5 MEQ/L (5-15); BLOOD UREA NITROGEN 12 mg/dL (7-17); CHLORIDE 103 mmol/L (98-107); Calcium 10.4 mg/dL (8.4-10.2); Carbon Dioxide 26 mmol/L (22-30); Creatinine 1 1.07 mg/dL (0.52-1.04); Glucose 118 mg/dL (74-106); Potassium 4.2 mmol/L (3.5-5.1); SODIUM 141 mmol/L (137-145)
[2018-01-19 19:35] VITALS: O2SAT 99
[2018-01-19 19:57] VITALS: BP 166/109
[2018-01-20 13:53] LABS: Amphetamine,Urine NEGATIVE (NEGATIVE); Barbiturate,Urine NEGATIVE (NEGATIVE); Benzodiazepine,Urine NEGATIVE (NEGATIVE); Cocaine,Urine NEGATIVE (NEGATIVE); Methadone,Urine NEGATIVE (NEGATIVE); Opiate,Urine NEGATIVE (NEGATIVE); PCP,Urine NEGATIVE (NEGATIVE); THC,Urine NEGATIVE (NEGATIVE)
== END 2018-01-19 19:57 | disposition home or self-care (01) ==
LOC: ED 16:54
DX: N73.9 Female pelvic inflammatory disease, unspecified (principal); R10.30 Lower abdominal pain, unspecified; Z79.899 Other long term (current) drug therapy
CPT/HCPCS: 36000; 36415; 80048; 80307; 84703; 85025; 87210; 87490; 87590; 96360; 96365; 96374; 99283; 99284; J0696; J1170

== ENCOUNTER 2018-12-15 07:49 | Emergency (ER) | payer MEDICAID, OTHER ==
[2018-12-15] MEDS ORDERED: TYLENOL 325 MG PO STA (08:06)
[2018-12-15] MEDS ORDERED: Sodium Chloride 0.9% 1000 ML 1,000 ML IV STA (08:06)
[2018-12-15] MEDS ORDERED: DUONEB 0.5-3 MG/3 ml Neb IH ONE ×2 (08:17→08:41)
[2018-12-15] MEDS ORDERED: Sodium Chloride 0.9% 1000 ML 1,000 ML ONE (08:26)
[2018-12-15] MEDS ORDERED: TYLENOL 325 MG ONE (08:26)
[2018-12-15 08:39] LABS: BASOPHIL % 0.2 % (0.0-0.4); Basophil (Absolute #) 0.03 (0-0.4); Eosinophil % 0.7 % (0.00-5.0); Eosinophil (Absolute #) 0.09 (0-0.5); Granulocyte Absolute (ANC) 9.45 (1.4-6.9); Hematocrit 39.2 % (35-47); Hemoglobin 12.7 gm/dl (12.0-16.0); Lymphocyte (Absolute #) 0.98 (1.0-4.6); Mean Cell Volume 85.2 fl (78-100); Mean Corpuscular Hemoglobin 27.6 pg (26-32); Mean Corpuscular Hgb Concent. 32.4 g/dl (32-36); Mean Platelet Volume 8.9 fl (6-9.5); Monocyte (Absolute #) 1.73 (0.0-1.3); Monocytes % 14.1 % (0.0-12.0); Platelet Count 734 K/mm3 (150-450); Red Cell Distribution Width 17.4 % (11.5-14.0); White Blood Count 12.3 K/mm3 (4.0-10.5)
[2018-12-15 08:51] LABS: Slide Review 1 YES
[2018-12-15 09:00] VITALS: O2SAT 98
[2018-12-15 09:00] LABS: ALBUMIN 4.7 g/dL (3.5-5.0); ANION GAP 16.4 MEQ/L (5-15); BILIRUBIN,TOTAL 0.4 mg/dL (0.2-1.3); Calcium 9.8 mg/dL (8.4-10.2); Creatinine 1 1.41 mg/dL (0.52-1.04); Potassium 4.2 mmol/L (3.5-5.1); Total Protein 8.9 g/dL (6.3-8.2)
[2018-12-15] MEDS ORDERED: TORAdol 30 mg Injection IM ONE (09:01)
[2018-12-15] MEDS ORDERED: TORAdol 30 mg Injection ONE (09:04)
[2018-12-15 09:17] LABS: Group A Strep NEGATIVE (NEGATIVE)
[2018-12-15 09:19] LABS: INFLUENZA A POSITIVE (NEGATIVE); INFLUENZA B NEGATIVE (NEGATIVE); RESPIRATORY SYNCTIAL VIRUS NEGATIVE (Negative)
--- NOTE | 2018-12-15 09:47 | XRAY ---
Indication: Fever, wheezing, and body pain. Comparison: August 31, 2017. PA/lateral chest remains hyperinflated and clear. Heart and mediastinal structures within normal limits. Bony thorax intact. No new/acute findings. Impression: Stable nonacute hyperinflated chest.
[2018-12-15] MEDS ORDERED: Tamiflu 75MG Capsule PO ONE ×2 (10:13→10:29)
[2018-12-15 11:07] LABS: Appearance SLIGHTLY CLOUDY (CLEAR); Bacteria RARE /HPF (NEGATIVE); Bilirubin NEGATIVE (NEGATIVE); Blood SMALL Ery/ul (0-5); Epithelial Cells RARE /HPF (FEW); Glucose NEGATIVE (NEGATIVE); Ketones TRACE (NEGATIVE); Leukocyte Esterase NEGATIVE (NEGATIVE); Mucus SLIGHT /HPF (NEGATIVE); Nitrite NEGATIVE (NEGATIVE); Protein,Urine Dip >=500 (Negative); Specific Gravity 1.028 (1.005-1.025); Urobilinogen NEGATIVE mg/dL (0-1)
[2018-12-15 11:10] VITALS: BP 174/114; PULSE 114
--- NOTE | 2018-12-15 11:28 | ERPHSYRPT ---
- History of Present Illness Source: patient Exam Limitations: no limitations Patient Subjective Stated Complaint: PT states "Ever since midnight I started having the worst body aches I have ever had, my head hurts, I just feel horrible." Triage Nursing Assessment: Pt alert and oriented X 3, skin pwd. Pt ambulates with an upright steady slow gait, pt crying, unable to sit still, able to speak in clear full sentences. Physician History: Pt states, has severe myalgias and fever. She did not take any Tylenol for her fever, and did not take any pain meds. Pt denies nasal congestion, and denies N /V/D or abdominal pain. No dysuria, frequency or urgency. Timing/Duration: today Cough Quality/Degree: mild, dry cough Possible Cause: no prior episodes Modifying Factors: Improves With: other (pain meds) Associated Symptoms: fever, chills, cough, headache Allergies/Adverse Reactions: Penicillins Allergy (Severe, Verified 12/15/18 07:58) Hives Home Medications: Labetalol HCl 100 mg [Trandate 100 MG] 300 mg PO Q4H PRN PRN 04/30/17 [ History] Ranitidine HCl 150 mg PO Q4H PRN PRN 04/30/17 [History] Hx Tetanus, Diphtheria Vaccination/Date Given: Yes Hx Influenza Vaccination/Date Given: No Hx Pneumococcal Vaccination/Date Given: No Immunizations Up to Date: Yes - Review of Systems Constitutional: Fever, Chills, Malaise Eyes: No Symptoms Ears, Nose, & Throat: No Symptoms Respiratory: Cough Cardiac: No Chest Pain, No Edema, No Syncope Abdominal/Gastrointestinal: No Abdominal Pain, No Nausea, No Vomiting, No Diarrhea Genitourinary Symptoms: No Dysuria Musculoskeletal: Myalgias Neurological: No Dizziness, No Focal Weakness, No Sensory Changes - Past Medical History Pertinent Past Medical History: Yes Neurological History: No Pertinent History ENT History: No Pertinent History Cardiac History: Hypertension Respiratory History: No Pertinent History Endocrine Medical History: No Pertinent History Musculoskeletal History: Arthritis GI Medical History: GERD History: Other Psycho-Social History: Anxiety, Depression Female Reproductive Disorders: No Pertinent History Other Medical History: PAST DX OF STAGE I KIDNEY FAILURE. 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 - Social History Smoking Status: Never smoker Exposure to second hand smoke: Yes Drug Use: none Patient Lives Alone: No - Female History Hx Last Menstrual Period: 12/04/2018 Hx Now: No - Nursing Vital Signs Nursing Vital Signs: Initial Vital Signs Temperature 102.0 F 12/15/18 07:53 Pulse Rate 138 H 12/15/18 07:53 Respiratory Rate 24 12/15/18 07:53 Blood Pressure 148/112 12/15/18 07:53 O2 Sat by Pulse Oximetry 98 12/15/18 07:53 Pain Scale Pain Intensity [Anterior/ 10 Posterior Generalized] Pain Intensity 10 - Physical Exam General Appearance: moderate distress (secondary to myalgias.) Eye Exam: PERRL/EOMI, eyes nml inspection Ears, Nose, Throat Exam: normal ENT inspection, TMs normal, pharynx normal, moist mucous membranes Neck Exam: normal inspection, non-tender, supple, full range of motion Respiratory Exam: normal breath sounds, lungs clear, No respiratory distress Cardiovascular Exam: regular rate/rhythm, normal heart sounds Gastrointestinal/Abdomen Exam: soft, No tenderness Extremity Exam: normal inspection, normal range of motion Neurologic Exam: alert, oriented x 3, cooperative, normal mood/affect, sensation nml, No motor deficits SpO2: 98 - Course Nursing assessment & vital signs reviewed: Yes - Radiology Exams Chest X-ray Interpretation: Negative Ordered Tests: Active Orders 24 hr Category Date Time Status IV Insertion STAT Care 12/15/18 08:06 Active CHEST 2 VIEWS (PA AND LAT) Stat Exams 12/15/18 08:08 Completed BLOOD CULTURE Stat Lab 12/15/18 09:03 Received CBC W DIFF Stat Lab 12/15/18 08:06 Completed CMP Stat Lab 12/15/18 08:37 Completed CULTURE,URINE Stat Lab 12/15/18 10:52 Received HCG QUALITATIVE,SERUM Stat Lab 12/15/18 09:07 Completed Lactic Acid Stat Lab 12/15/18 08:06 Completed UA W/RFX UR CULTURE Stat Lab 12/15/18 10:52 Completed Respiratory Nebulizer STAT RT 12/15/18 08:17 Completed Respiratory Therapy Assessment DAILY RT 12/16/18 07:00 Active Medication Summary Discontinued Medications Generic Name Dose Route Start Last Admin Trade Name Zach PRN Reason Stop Dose Admin Acetaminophen 975 mg 12/15/18 08:06 12/15/18 08:27 Tylenol 325 Mg PO 12/15/18 08:07 975 mg STAT STA Administration Acetaminophen Confirm 12/15/18 08:26 Tylenol 325 Mg Administered 12/15/18 08:27 Dose 975 mg .ROUTE .STK-MED ONE Albuterol/Ipratropium 3 ml 12/15/18 08:17 12/15/18 08:45 Duoneb 0.5-3 Mg/3 Ml Neb IH 12/15/18 08:18 3 ml STAT ONE Administration Albuterol/Ipratropium Confirm 12/15/18 08:41 Duoneb 0.5-3 Mg/3 Ml Neb Administered 12/15/18 08:42 Dose 3 ml IH .STK-MED ONE Sodium Chloride 1,000 mls @ 999 mls/hr 12/15/18 08:06 12/15/18 09:32 Sodium Chloride 0.9% 1000 Ml IV 12/15/18 09:06 Infused .Q1H1M STA Infusion Sodium Chloride Confirm 12/15/18 08:26 Sodium Chloride 0.9% 1000 Ml Administered 12/15/18 08:27 Dose 1,000 mls @ ud .ROUTE .STK-MED ONE Ketorolac Tromethamine 60 mg 12/15/18 09:01 12/15/18 09:05 Toradol 30 Mg Injection IM 12/15/18 09:02 60 mg STAT ONE Administration Ketorolac Tromethamine Confirm 12/15/18 09:04 Toradol 30 Mg Injection Administered 12/15/18 09:05 Dose 60 mg .ROUTE .STK-MED ONE Oseltamivir Phosphate 75 mg 12/15/18 10:13 12/15/18 10:31 Tamiflu 75mg Capsule PO 12/15/18 10:14 75 mg STAT ONE Administration Oseltamivir Phosphate Confirm 12/15/18 10:29 Tamiflu 75mg Capsule Administered 12/15/18 10:30 Dose 75 mg PO .STK-MED ONE Lab/Rad Data: Laboratory Result Diagrams 12/15/18 08:06 12/15/18 08:37 Laboratory Results 12/15/18 12/15/18 12/15/18 Range/Units 10:52 09:07 08:37 WBC (4.0-10.5) K/mm3 RBC (4.1-5.4) M/mm3 Hgb (12.0-16.0) gm/dl Hct (35-47) % MCV (78-100) fl MCH (26-32) pg MCHC (32-36) g/dl RDW (11.5-14.0) % Plt Count (150-450) K/mm3 MPV (6-9.5) fl Gran % (36.0-66.0) % Eos # (Auto) (0-0.5) Absolute Lymphs (auto) (1.0-4.6) Absolute Monos (auto) (0.0-1.3) Lymphocytes % (24.0-44.0) % Monocytes % (0.0-12.0) % Eosinophils % (0.00-5.0) % Basophils % (0.0-0.4) % Absolute Granulocytes (1.4-6.9) Basophils # (0-0.4) Sodium (137-145) mmol/L Potassium (3.5-5.1) mmol/L Chloride (98-107) mmol/L Carbon Dioxide (22-30) mmol/L Anion Gap (5-15) MEQ/L BUN (7-17) mg/dL Creatinine (0.52-1.04) mg/dL Estimated GFR ML/MIN Glucose (74-106) mg/dL Lactic Acid (0.4-2.0) Calcium (8.4-10.2) mg/dL Total Bilirubin (0.2-1.3) mg/dL AST (14-36) U/L ALT (0-35) U/L Alkaline Phosphatase (38-126) U/L Serum Total Protein (6.3-8.2) g/dL Albumin (3.5-5.0) g/dL Serum , Qual NEGATIVE (Negative) Urine Color DARK YELLOW (YELLOW) Urine Appearance SLIGHTLY CLOUDY (CLEAR) Urine pH 5.0 (5-6) Ur Specific [place] 1.028 (1.005-1.025) Urine Protein >=500 (Negative) Urine Ketones TRACE (NEGATIVE) Urine Blood SMALL (0-5) Hiram/ul Urine Nitrite NEGATIVE (NEGATIVE) Urine Bilirubin NEGATIVE (NEGATIVE) Urine Urobilinogen NEGATIVE (0-1) mg/dL Ur Leukocyte Esterase NEGATIVE (NEGATIVE) Urine WBC (Auto) 6-10 (0-5) /HPF Urine RBC (Auto) 3-5 (0-2) /HPF U Epithel Cells (Auto) RARE (FEW) /HPF Urine Bacteria (Auto) RARE (NEGATIVE) /HPF Other Casts (Auto) NEGATIVE (NEGATIVE) /LPF Urine Mucus (Auto) SLIGHT (NEGATIVE) /HPF Urine Culture Reflexed YES (NO) Urine Glucose NEGATIVE (NEGATIVE) mg/dL Influenza Type A Ag POSITIVE (NEGATIVE) Influenza Type B Ag NEGATIVE (NEGATIVE) RSV (PCR) NEGATIVE (Negative) Group A Strep Antibody NEGATIVE (NEGATIVE) Slides for Path Review 12/15/18 12/15/18 12/15/18 Range/Units 08:37 08:06 08:06 WBC 12.3 H (4.0-10.5) K/mm3 RBC 4.60 (4.1-5.4) M/mm3 Hgb 12.7 (12.0-16.0) gm/dl Hct 39.2 (35-47) % MCV 85.2 (78-100) fl MCH 27.6 (26-32) pg MCHC 32.4 (32-36) g/dl RDW 17.4 H (11.5-14.0) % Plt Count 734 H (150-450) K/mm3 MPV 8.9 (6-9.5) fl Gran % 77.0 H (36.0-66.0) % Eos # (Auto) 0.09 (0-0.5) Absolute Lymphs (auto) 0.98 L (1.0-4.6) Absolute Monos (auto) 1.73 H (0.0-1.3) Lymphocytes % 8.0 L (24.0-44.0) % Monocytes % 14.1 H (0.0-12.0) % Eosinophils % 0.7 (0.00-5.0) % Basophils % 0.2 (0.0-0.4) % Absolute Granulocytes 9.45 H (1.4-6.9) Basophils # 0.03 (0-0.4) Sodium 138 (137-145) mmol/L Potassium 4.2 (3.5-5.1) mmol/L Chloride 98 (98-107) mmol/L Carbon Dioxide 28 (22-30) mmol/L Anion Gap 16.4 H (5-15) MEQ/L BUN 21 H (7-17) mg/dL Creatinine 1.41 H (0.52-1.04) mg/dL Estimated GFR 48.3 ML/MIN Glucose 141 H (74-106) mg/dL Lactic Acid 1.2 (0.4-2.0) Calcium 9.8 (8.4-10.2) mg/dL Total Bilirubin 0.40 (0.2-1.3) mg/dL AST 21 (14-36) U/L ALT 17 (0-35) U/L Alkaline Phosphatase 108 (38-126) U/L Serum Total Protein 8.9 H (6.3-8.2) g/dL Albumin 4.7 (3.5-5.0) g/dL Serum , Qual (Negative) Urine Color (YELLOW) Urine Appearance (CLEAR) Urine pH (5-6) Ur Specific [place] (1.005-1.025) Urine Protein (Negative) Urine Ketones (NEGATIVE) Urine Blood (0-5) Hiram/ul Urine Nitrite (NEGATIVE) Urine Bilirubin (NEGATIVE) Urine Urobilinogen (0-1) mg/dL Ur Leukocyte Esterase (NEGATIVE) Urine WBC (Auto) (0-5) /HPF Urine RBC (Auto) (0-2) /HPF U Epithel Cells (Auto) (FEW) /HPF Urine Bacteria (Auto) (NEGATIVE) /HPF Other Casts (Auto) (NEGATIVE) /LPF Urine Mucus (Auto) (NEGATIVE) /HPF Urine Culture Reflexed (NO) Urine Glucose (NEGATIVE) mg/dL Influenza Type A Ag (NEGATIVE) Influenza Type B Ag (NEGATIVE) RSV (PCR) (Negative) Group A Strep Antibody (NEGATIVE) Slides for Path Review YES - Progress Progress: improved Air Movement: good Progress Note: 12/15/18 11:26 Pt was diagnosed with Influenza A and Tamiflu 75mg was given. CXR was negative , and other labs were normal. IVF was given, as well as Toradol IM, and Tylenol 1gr for fever. Pt will have Tamiflu e-scribed to her pharmacy. Pt should use OTC meds for symptoms relief. F/U with PCP. Blood Culture(s) Obtained: No Antibiotics given: Yes Discussed with : Pura Will see patient in: office Counseled pt/family regarding: need for follow-up - Departure Time of Disposition: 11:28 Departure Disposition: Home Clinical Impression: Influenza A Condition: Stable Critical Care Time: No Referrals: JOANNE BAL MD [Primary Care Provider] - Additional Instructions: Finish Tamiflu as ordered. F/U with PCP. Can use OTC meds for symptoms relief. Prescriptions: Oseltamivir 75 mg [Tamiflu 75MG Capsule] 75 mg PO BID #10 cap
== END 2018-12-15 11:44 | disposition home or self-care (01) ==
LOC: ED 07:49
DX: J10.1 Influenza due to other identified influenza virus with other respiratory manifestations (principal); M19.90 Unspecified osteoarthritis, unspecified site; N18.1 Chronic kidney disease, stage 1; K21.9 Gastro-esophageal reflux disease without esophagitis; F41.9 Anxiety disorder, unspecified
CPT/HCPCS: 36000; 36415; 71046; 80053; 81001; 81025; 83605; 85025; 87040; 87086; 87631; 87651; 94640; 96360; 96372; 96374; 99284; J1885; A9270-GY

== ENCOUNTER 2019-07-14 21:06 | Emergency (ER) | payer MEDICAID ==
[2019-07-14 21:16] VITALS: O2SAT 97
[2019-07-14] MEDS ORDERED: Zofran 4 MG/2 ML VIAL IV ONE (21:42)
[2019-07-14] MEDS ORDERED: Phenergan 25 MG INJ IM ONE (21:42)
[2019-07-14] MEDS ORDERED: Sodium Chloride 0.9% 1000 ML 1,000 ML IV STA ×2 (21:42→22:58)
--- NOTE | 2019-07-14 21:42 | ERPHSYRPT ---
- History of Present Illness Time Seen by Provider: 07/14/19 21:35 Historian: patient Exam Limitations: no limitations Patient Subjective Stated Complaint: pt states, "I feel like my body is shutting down, my muscels feel weak, I have a pounding headache, my back and abd are hurting, I've been stuck in bed and unable to get up and vomited alot." Triage Nursing Assessment: this RN wheeled pt to rm 5, assisted pt into bed, Pt alert and oriented x3, pleasant. Pt c/o vomiting approx 60 times since 1400 today. pt c/o the worst headache I've ever had, abd pain which she thinks is from vomiting so hard and flank pain. Lungs clear, heart tones reg, abd soft with active bs x4 quad. Physician History: 24 y/o white female presents with 1st headache she experienced early this afternoon, followed by n/v "60" times since 2pm, followed by body aches. pt states she woke up fine. pt states no other individuals with same sx.. never had before. pt states she has the worst headache she has ever had. Timing/Duration: today Activities at Onset: none Quality: aching, throbbing Abdominal Pain Onset Location: generalized abdomen Pain Radiation: no radiation Severity of Pain-Max: moderate Severity of Pain-Current: moderate Modifying Factors: Improves With: vomiting Associated Symptoms: fever/chills, nausea, vomiting, weakness, No neck pain, No shortness of breath Previous symptoms: no prior history Allergies/Adverse Reactions: Penicillins Allergy (Severe, Verified 12/15/18 07:58) Hives Home Medications: RX: Labetalol HCl 100 mg [Trandate 100 MG] 300 mg PO Q4H PRN PRN 04/30/17 [History] RX: Ranitidine HCl 150 mg PO Q4H PRN PRN 04/30/17 [History] Diphenhydramine HCl 25 mg [Benadryl 25 mg Capsule] 25 mg PO Q4HPRN PRN 06/24 [History] Hx Tetanus, Diphtheria Vaccination/Date Given: Yes Hx Influenza Vaccination/Date Given: No Hx Pneumococcal Vaccination/Date Given: No Immunizations Up to Date: Yes - Review of Systems Constitutional: Fever, Weakness Eyes: No Symptoms Ears, Nose, & Throat: No Symptoms Respiratory: No Symptoms Cardiac: No Symptoms Abdominal/Gastrointestinal: Abdominal Pain, Nausea, Vomiting, No Diarrhea Genitourinary Symptoms: No Symptoms Musculoskeletal: Arthralgias, Myalgias Skin: No Symptoms Neurological: Headache Psychological: No Symptoms Endocrine: No Symptoms Hematologic/Lymphatic: No Symptoms Immunological/Allergic: No Symptoms All Other Systems: Reviewed and Negative - Past Medical History Pertinent Past Medical History: Yes Neurological History: No Pertinent History ENT History: No Pertinent History Cardiac History: Hypertension Respiratory History: No Pertinent History Endocrine Medical History: No Pertinent History Musculoskeletal History: Arthritis GI Medical History: GERD History: Other Psycho-Social History: Anxiety, Depression Female Reproductive Disorders: No Pertinent History Other Medical History: PAST DX OF STAGE I KIDNEY FAILURE. 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 - Social History Smoking Status: Never smoker Exposure to second hand smoke: Yes Drug Use: none Patient Lives Alone: No - Female History Hx Last Menstrual Period: 2 weeks ago Hx Now: No (tubes removed) - Nursing Vital Signs Nursing Vital Signs: Initial Vital Signs Temperature 100.7 F 07/14/19 21:15 Pulse Rate 120 H 07/14/19 21:15 Respiratory Rate 15 07/14/19 21:15 Blood Pressure 183/127 07/14/19 21:15 O2 Sat by Pulse Oximetry 97 07/14/19 21:15 Pain Scale Pain Intensity 8 - Physical Exam General Appearance: moderate distress, alert, anxiety Eye Exam: PERRL/EOMI, eyes nml inspection Ears, Nose, Throat Exam: normal ENT inspection, moist mucous membranes Neck Exam: normal inspection, non-tender, supple, full range of motion Respiratory Exam: normal breath sounds, lungs clear, airway intact, No chest tenderness, No respiratory distress Cardiovascular Exam: tachycardia Gastrointestinal/Abdomen Exam: soft, normal bowel sounds, tenderness (mild diffuse ) Pelvic Exam: not done Rectal Exam: not done Back Exam: normal inspection, normal range of motion, No CVA tenderness, No vertebral tenderness Extremity Exam: normal inspection, normal range of motion, pelvis stable Neurologic Exam: alert, oriented x 3, cooperative, technical operator II-XII nml as tested Skin Exam: normal color, warm, dry Lymphatic Exam: No adenopathy SpO2 Interpretation: normal SpO2: 97 O2 Delivery: Room Air - Course Nursing assessment & vital signs reviewed: Yes Ordered Tests: Active Orders 24 hr Category Date Time Status Clean Catch Urine Specimen STAT Care 07/14/19 23:05 Active IV Insertion STAT Care 07/14/19 21:42 Active ABDOMEN AND PELVIS W/0 CONTRAS [CT] Stat Exams 07/14/19 21:43 Taken HEAD WITHOUT CONTRAST [CT] Stat Exams 07/14/19 21:44 Taken AMYLASE Stat Lab 07/14/19 21:49 Completed BLOOD CULTURE Stat Lab 07/14/19 21:55 Received CBC W DIFF Stat Lab 07/14/19 21:49 Completed CBC W DIFF Stat Lab 07/15/19 01:08 Completed CMP Stat Lab 07/14/19 21:49 Completed LIPASE Stat Lab 07/14/19 21:49 Completed Lactic Acid Stat Lab 07/14/19 21:42 Completed Heard Screen Stat Lab 07/14/19 21:57 Completed Urine Triage Profile Stat Lab 07/15/19 00:22 Completed Medication Summary Discontinued Medications Generic Name Dose Route Start Last Admin Trade Name Freq PRN Reason Stop Dose Admin Acetaminophen 650 mg 07/15/19 01:03 07/15/19 01:06 Tylenol 325 Mg PO 07/15/19 01:04 650 mg STAT STA Administration Acetaminophen Confirm 07/15/19 01:06 Tylenol 325 Mg Administered 07/15/19 01:07 Dose 650 mg .ROUTE .STK-MED ONE Hydromorphone HCl 0.5 mg 07/14/19 22:59 07/14/19 23:24 Hydromorphone 1 Mg/Ml Ampule IV 07/14/19 23:00 0.5 mg STAT ONE Administration Hydromorphone HCl Confirm 07/14/19 23:22 Hydromorphone 1 Mg/Ml Ampule Administered 07/14/19 23:23 Dose 1 mg .ROUTE .STK-MED ONE Hydromorphone HCl 0.5 mg 07/15/19 01:32 07/15/19 01:43 Hydromorphone 1 Mg/Ml Ampule IV 07/15/19 01:33 0.5 mg STAT ONE Administration Hydromorphone HCl Confirm 07/15/19 01:40 Hydromorphone 1 Mg/Ml Ampule Administered 07/15/19 01:41 Dose 1 mg .ROUTE .STK-MED ONE Sodium Chloride 1,000 mls @ 999 mls/hr 07/14/19 21:42 07/14/19 23:16 Sodium Chloride 0.9% 1000 Ml IV 07/14/19 22:42 Infused .Q1H1M STA Infusion Sodium Chloride Confirm 07/14/19 22:12 Sodium Chloride 0.9% 1000 Ml Administered 07/14/19 22:13 Dose 1,000 mls @ ud .ROUTE .STK-MED ONE Sodium Chloride 1,000 mls @ 999 mls/hr 07/14/19 22:58 07/15/19 00:27 Sodium Chloride 0.9% 1000 Ml IV 07/14/19 23:58 Infused .Q1H1M STA Infusion Sodium Chloride Confirm 07/14/19 23:22 Sodium Chloride 0.9% 1000 Ml Administered 07/14/19 23:23 Dose 1,000 mls @ ud .ROUTE .STK-MED ONE Sodium Chloride 500 mls @ 500 mls/hr 07/15/19 00:54 07/15/19 02:00 Sodium Chloride 0.9% 500 Ml IV 07/15/19 01:53 Infused .Q1H ONE Infusion Sodium Chloride Confirm 07/15/19 00:58 Sodium Chloride 0.9% 500 Ml Administered 07/15/19 00:59 Dose 500 mls @ ud IV .STK-MED ONE Ibuprofen 600 mg 07/15/19 01:05 07/15/19 01:07 Motrin 600 Mg PO 07/15/19 01:06 600 mg STAT ONE Administration Ibuprofen Confirm 07/15/19 01:05 Motrin 600 Mg Administered 07/15/19 01:06 Dose 600 mg .ROUTE .STK-MED ONE Ondansetron HCl 4 mg 07/14/19 21:42 07/14/19 22:18 Zofran 4 Mg/2 Ml Vial IV 07/14/19 21:43 4 mg STAT ONE Administration Ondansetron HCl Confirm 07/14/19 22:12 Zofran 4 Mg/2 Ml Vial Administered 07/14/19 22:13 Dose 4 mg .ROUTE .STK-MED ONE Promethazine HCl 12.5 mg 07/14/19 21:42 07/14/19 22:18 Phenergan 25 Mg Inj IM 07/14/19 21:43 12.5 mg STAT ONE Administration Promethazine HCl Confirm 07/14/19 22:12 Phenergan 25 Mg Inj Administered 07/14/19 22:13 Dose 25 mg .ROUTE .STK-MED ONE Lab/Rad Data: Laboratory Result Diagrams 07/15/19 01:08 07/14/19 21:49 Laboratory Results 07/15/19 07/15/19 07/14/19 Range/Units 01:08 00:22 21:57 WBC 17.3 H (4.0-10.5) K/mm3 RBC 4.04 L (4.1-5.4) M/mm3 Hgb 12.2 (12.0-16.0) gm/dl Hct 36.9 (35-47) % MCV 91.3 (78-100) fl MCH 30.1 (26-32) pg MCHC 33.1 (32-36) g/dl RDW 17.3 H (11.5-14.0) % Plt Count 390 (150-450) K/mm3 MPV 9.3 (6-9.5) fl Gran % 87.4 H (36.0-66.0) % Eos # (Auto) 0.05 (0-0.5) Absolute Lymphs (auto) 1.56 (1.0-4.6) Absolute Monos (auto) 0.55 (0.0-1.3) Lymphocytes % 9.0 L (24.0-44.0) % Monocytes % 3.2 (0.0-12.0) % Eosinophils % 0.3 (0.00-5.0) % Basophils % 0.1 (0.0-0.4) % Absolute Granulocytes 15.11 H (1.4-6.9) Basophils # 0.02 (0-0.4) Sodium (137-145) mmol/L Potassium (3.5-5.1) mmol/L Chloride (98-107) mmol/L Carbon Dioxide (22-30) mmol/L Anion Gap (5-15) MEQ/L BUN (7-17) mg/dL Creatinine (0.52-1.04) mg/dL Estimated GFR ML/MIN Glucose (74-106) mg/dL Lactic Acid (0.4-2.0) Calcium (8.4-10.2) mg/dL Total Bilirubin (0.2-1.3) mg/dL AST (14-36) U/L ALT (0-35) U/L Alkaline Phosphatase (38-126) U/L Serum Total Protein (6.3-8.2) g/dL Albumin (3.5-5.0) g/dL Amylase (30-110) U/L Lipase (23-300) U/L Urine Color (YELLOW) Urine Appearance (CLEAR) Urine pH (5-6) Ur Specific Caroline (1.005-1.025) Urine Protein (Negative) Urine Ketones (NEGATIVE) Urine Blood (0-5) Hiram/ul Urine Nitrite (NEGATIVE) Urine Bilirubin (NEGATIVE) Urine Urobilinogen (0-1) mg/dL Ur Leukocyte Esterase (NEGATIVE) Urine WBC (Auto) (0-5) /HPF Urine RBC (Auto) (0-2) /HPF U Hyaline Cast (Auto) (0-2) /LPF U Epithel Cells (Auto) (FEW) /HPF Urine Bacteria (Auto) (NEGATIVE) /HPF Urine Mucus (Auto) (NEGATIVE) /HPF Urine Culture Reflexed (NO) Urine Glucose (NEGATIVE) mg/dL Urine Opiates Level POSITIVE (NEGATIVE) Ur Methadone NEGATIVE (NEGATIVE) Urine Barbiturates NEGATIVE (NEGATIVE) Ur Phencyclidine (PCP) NEGATIVE (NEGATIVE) Urine Amphetamine NEGATIVE (NEGATIVE) U Benzodiazepine Level NEGATIVE (NEGATIVE) Urine Cocaine NEGATIVE (NEGATIVE) Urine Marijuana (THC) NEGATIVE (NEGATIVE) Monoscreen NEGATIVE (Negative) Influenza Type A Ag (NEGATIVE) Influenza Type B Ag (NEGATIVE) RSV (PCR) (Negative) Group A Strep Antibody (NEGATIVE) 07/14/19 07/14/19 07/14/19 Range/Units 21:49 21:49 21:45 WBC 18.4 H (4.0-10.5) K/mm3 RBC 4.40 (4.1-5.4) M/mm3 Hgb 13.4 (12.0-16.0) gm/dl Hct 40.5 (35-47) % MCV 92.0 (78-100) fl MCH 30.5 (26-32) pg MCHC 33.1 (32-36) g/dl RDW 17.2 H (11.5-14.0) % Plt Count 420 (150-450) K/mm3 MPV 9.6 H (6-9.5) fl Gran % 82.0 H (36.0-66.0) % Eos # (Auto) 0.45 (0-0.5) Absolute Lymphs (auto) 1.55 (1.0-4.6) Absolute Monos (auto) 1.29 (0.0-1.3) Lymphocytes % 8.4 L (24.0-44.0) % Monocytes % 7.0 (0.0-12.0) % Eosinophils % 2.4 (0.00-5.0) % Basophils % 0.2 (0.0-0.4) % Absolute Granulocytes 15.07 H (1.4-6.9) Basophils # 0.04 (0-0.4) Sodium 138 (137-145) mmol/L Potassium 4.4 (3.5-5.1) mmol/L Chloride 98 (98-107) mmol/L Carbon Dioxide 29 (22-30) mmol/L Anion Gap 15.3 H (5-15) MEQ/L BUN 17 (7-17) mg/dL Creatinine 0.87 (0.52-1.04) mg/dL Estimated GFR > 60.0 ML/MIN Glucose 109 H (74-106) mg/dL Lactic Acid (0.4-2.0) Calcium 9.2 (8.4-10.2) mg/dL Total Bilirubin 0.50 (0.2-1.3) mg/dL AST 25 (14-36) U/L ALT 13 (0-35) U/L Alkaline Phosphatase 71 (38-126) U/L Serum Total Protein 7.7 (6.3-8.2) g/dL Albumin 4.2 (3.5-5.0) g/dL Amylase 103 (30-110) U/L Lipase 88 (23-300) U/L Urine Color (YELLOW) Urine Appearance (CLEAR) Urine pH (5-6) Ur Specific Caroline (1.005-1.025) Urine Protein (Negative) Urine Ketones (NEGATIVE) Urine Blood (0-5) Hiram/ul Urine Nitrite (NEGATIVE) Urine Bilirubin (NEGATIVE) Urine Urobilinogen (0-1) mg/dL Ur Leukocyte Esterase (NEGATIVE) Urine WBC (Auto) (0-5) /HPF Urine RBC (Auto) (0-2) /HPF U Hyaline Cast (Auto) (0-2) /LPF U Epithel Cells (Auto) (FEW) /HPF Urine Bacteria (Auto) (NEGATIVE) /HPF Urine Mucus (Auto) (NEGATIVE) /HPF Urine Culture Reflexed (NO) Urine Glucose (NEGATIVE) mg/dL Urine Opiates Level (NEGATIVE) Ur Methadone (NEGATIVE) Urine Barbiturates (NEGATIVE) Ur Phencyclidine (PCP) (NEGATIVE) Urine Amphetamine (NEGATIVE) U Benzodiazepine Level (NEGATIVE) Urine Cocaine (NEGATIVE) Urine Marijuana (THC) (NEGATIVE) Monoscreen (Negative) Influenza Type A Ag NEGATIVE (NEGATIVE) Influenza Type B Ag NEGATIVE (NEGATIVE) RSV (PCR) NEGATIVE (Negative) Group A Strep Antibody NEGATIVE (NEGATIVE) 07/14/19 07/14/19 Range/Units 21:42 00:22 WBC (4.0-10.5) K/mm3 RBC (4.1-5.4) M/mm3 Hgb (12.0-16.0) gm/dl Hct (35-47) % MCV (78-100) fl MCH (26-32) pg MCHC (32-36) g/dl RDW (11.5-14.0) % Plt Count (150-450) K/mm3 MPV (6-9.5) fl Gran % (36.0-66.0) % Eos # (Auto) (0-0.5) Absolute Lymphs (auto) (1.0-4.6) Absolute Monos (auto) (0.0-1.3) Lymphocytes % (24.0-44.0) % Monocytes % (0.0-12.0) % Eosinophils % (0.00-5.0) % Basophils % (0.0-0.4) % Absolute Granulocytes (1.4-6.9) Basophils # (0-0.4) Sodium (137-145) mmol/L Potassium (3.5-5.1) mmol/L Chloride (98-107) mmol/L Carbon Dioxide (22-30) mmol/L Anion Gap (5-15) MEQ/L BUN (7-17) mg/dL Creatinine (0.52-1.04) mg/dL Estimated GFR ML/MIN Glucose (74-106) mg/dL Lactic Acid 1.0 (0.4-2.0) Calcium (8.4-10.2) mg/dL Total Bilirubin (0.2-1.3) mg/dL AST (14-36) U/L ALT (0-35) U/L Alkaline Phosphatase (38-126) U/L Serum Total Protein (6.3-8.2) g/dL Albumin (3.5-5.0) g/dL Amylase (30-110) U/L Lipase (23-300) U/L Urine Color YELLOW (YELLOW) Urine Appearance SLIGHTLY CLOUDY (CLEAR) Urine pH 5.0 (5-6) Ur Specific Caroline 1.017 (1.005-1.025) Urine Protein >=500 (Negative) Urine Ketones NEGATIVE (NEGATIVE) Urine Blood SMALL (0-5) Hiram/ul Urine Nitrite NEGATIVE (NEGATIVE) Urine Bilirubin NEGATIVE (NEGATIVE) Urine Urobilinogen NEGATIVE (0-1) mg/dL Ur Leukocyte Esterase NEGATIVE (NEGATIVE) Urine WBC (Auto) 0-2 (0-5) /HPF Urine RBC (Auto) 3-5 (0-2) /HPF U Hyaline Cast (Auto) 3-5 (0-2) /LPF U Epithel Cells (Auto) RARE (FEW) /HPF Urine Bacteria (Auto) NONE (NEGATIVE) /HPF Urine Mucus (Auto) SLIGHT (NEGATIVE) /HPF Urine Culture Reflexed YES (NO) Urine Glucose NEGATIVE (NEGATIVE) mg/dL Urine Opiates Level (NEGATIVE) Ur Methadone (NEGATIVE) Urine Barbiturates (NEGATIVE) Ur Phencyclidine (PCP) (NEGATIVE) Urine Amphetamine (NEGATIVE) U Benzodiazepine Level (NEGATIVE) Urine Cocaine (NEGATIVE) Urine Marijuana (THC) (NEGATIVE) Monoscreen (Negative) Influenza Type A Ag (NEGATIVE) Influenza Type B Ag (NEGATIVE) RSV (PCR) (Negative) Group A Strep Antibody (NEGATIVE) - Progress Progress: improved, re-examined Progress Note: 07/15/19 00:[address] ct abd/pelvis no acute processes 07/15/19 00:57 pt states she is feeling better. 07/15/19 02:24 temp wnl. allison pos. more comfortable Counseled pt/family regarding: lab results, diagnosis, need for follow-up, rad results - Departure Departure Disposition: Home Clinical Impression: Fever, Vomiting, Viral syndrome Condition: Stable Critical Care Time: No Referrals: JOANNE BAL MD [Primary Care Provider] - Additional Instructions: drink plenty of fluids. tylenol and ibuprofen for pain and fever. follow up with primary doctor. take your labetalol as prescribed Prescriptions: Ondansetron HCl [Zofran] 4 mg PO TID PRN #10 tablet PRN Reason: Nausea/Vomiting
[2019-07-14 21:52] LABS: Absolute Neutrophil Ct (ANC) 15.07 (1.4-6.9); BASOPHIL % 0.2 % (0.0-0.4); Basophil (Absolute #) 0.04 (0-0.4); Eosinophil % 2.4 % (0.00-5.0); Eosinophil (Absolute #) 0.45 (0-0.5); Hematocrit 40.5 % (35-47); Hemoglobin 13.4 gm/dl (12.0-16.0); Lymphocyte (Absolute #) 1.55 (1.0-4.6); Lymphocytes % 8.4 % (24.0-44.0); Mean Corpuscular Hemoglobin 30.5 pg (26-32); Mean Corpuscular Hgb Concent. 33.1 g/dl (32-36); Mean Platelet Volume 9.6 fl (6-9.5); Monocyte (Absolute #) 1.29 (0.0-1.3); Platelet Count 420 K/mm3 (150-450); Red Cell Distribution Width 17.2 % (11.5-14.0); White Blood Count 18.4 K/mm3 (4.0-10.5)
[2019-07-14 22:04] LABS: ALBUMIN 4.2 g/dL (3.5-5.0); ALKALINE PHOSPHATASE 71 U/L (38-126); AMYLASE 103 U/L (30-110); ANION GAP 15.3 MEQ/L (5-15); BLOOD UREA NITROGEN 17 mg/dL (7-17); CHLORIDE 98 mmol/L (98-107); Calcium 9.2 mg/dL (8.4-10.2); Carbon Dioxide 29 mmol/L (22-30); Creatinine 1 0.87 mg/dL (0.52-1.04); Glucose 109 mg/dL (74-106); LIPASE 88 U/L (23-300); Potassium 4.4 mmol/L (3.5-5.1); SGOT/AST 25 U/L (14-36); SGPT/ALT 13 U/L (0-35); SODIUM 138 mmol/L (137-145); Total Protein 7.7 g/dL (6.3-8.2)
[2019-07-14] MEDS ORDERED: Zofran 4 MG/2 ML VIAL ONE (22:12)
[2019-07-14] MEDS ORDERED: Sodium Chloride 0.9% 1000 ML 1,000 ML ONE ×2 (22:12→23:22)
[2019-07-14] MEDS ORDERED: Phenergan 25 MG INJ ONE (22:12)
[2019-07-14 22:49] LABS: Group A Strep NEGATIVE (NEGATIVE); INFLUENZA A NEGATIVE (NEGATIVE); INFLUENZA B NEGATIVE (NEGATIVE); RESPIRATORY SYNCTIAL VIRUS NEGATIVE (Negative)
[2019-07-14] MEDS ORDERED: Hydromorphone 1 mg/ml Ampule IV ONE (22:59)
[2019-07-14] MEDS ORDERED: Hydromorphone 1 mg/ml Ampule ONE (23:22)
[2019-07-15 00:43] LABS: Amphetamine,Urine NEGATIVE (NEGATIVE); Barbiturate,Urine NEGATIVE (NEGATIVE); Benzodiazepine,Urine NEGATIVE (NEGATIVE); Cocaine,Urine NEGATIVE (NEGATIVE); Methadone,Urine NEGATIVE (NEGATIVE); Opiate,Urine POSITIVE (NEGATIVE); PCP,Urine NEGATIVE (NEGATIVE); THC,Urine NEGATIVE (NEGATIVE)
[2019-07-15 00:51] LABS: Appearance SLIGHTLY CLOUDY (CLEAR); Bilirubin NEGATIVE (NEGATIVE); Blood SMALL Ery/ul (0-5); Epithelial Cells RARE /HPF (FEW); Glucose NEGATIVE (NEGATIVE); Ketones NEGATIVE (NEGATIVE); Leukocyte Esterase NEGATIVE (NEGATIVE); Mucus SLIGHT /HPF (NEGATIVE); Nitrite NEGATIVE (NEGATIVE); Protein,Urine Dip >=500 (Negative); Specific Gravity 1.017 (1.005-1.025); Urobilinogen NEGATIVE mg/dL (0-1); WBC 0-2 /HPF (0-5)
[2019-07-15] MEDS ORDERED: Sodium Chloride 0.9% 500 ML 500 ML IV ONE ×2 (00:54→00:58)
[2019-07-15] MEDS ORDERED: TYLENOL 325 MG PO STA (01:03)
[2019-07-15] MEDS ORDERED: MOTRIN 600 MG ONE (01:05)
[2019-07-15] MEDS ORDERED: MOTRIN 600 MG PO ONE (01:05)
[2019-07-15] MEDS ORDERED: TYLENOL 325 MG ONE (01:06)
[2019-07-15 01:11] LABS: Absolute Neutrophil Ct (ANC) 15.11 (1.4-6.9); BASOPHIL % 0.1 % (0.0-0.4); Basophil (Absolute #) 0.02 (0-0.4); Eosinophil % 0.3 % (0.00-5.0); Eosinophil (Absolute #) 0.05 (0-0.5); Hematocrit 36.9 % (35-47); Hemoglobin 12.2 gm/dl (12.0-16.0); Lymphocyte (Absolute #) 1.56 (1.0-4.6); Mean Cell Volume 91.3 fl (78-100); Mean Corpuscular Hgb Concent. 33.1 g/dl (32-36); Mean Platelet Volume 9.3 fl (6-9.5); Monocyte (Absolute #) 0.55 (0.0-1.3); Monocytes % 3.2 % (0.0-12.0); Neutrophil % 87.4 % (36.0-66.0); Platelet Count 390 K/mm3 (150-450); Red Blood Count 4.04 M/mm3 (4.1-5.4); Red Cell Distribution Width 17.3 % (11.5-14.0); White Blood Count 17.3 K/mm3 (4.0-10.5)
[2019-07-15 01:14] LABS: Mean Corpuscular Hemoglobin 30.1 pg (26-32)
[2019-07-15] MEDS ORDERED: Hydromorphone 1 mg/ml Ampule IV ONE (01:32)
[2019-07-15] MEDS ORDERED: Hydromorphone 1 mg/ml Ampule ONE (01:40)
[2019-07-15 02:31] VITALS: BP 156/106; PULSE 83
--- NOTE | 2019-07-15 09:27 | XRAY ---
Indication: Headache. No known injury. Multiple contiguous axial images obtained through the head without contrast. Comparison: November 05, 2011. Again normal appearing brain parenchyma, ventricles, and bony calvarium. There is now moderate mucosal thickening of both ethmoid and lesser degree left maxillary sinuses without fluid leveling. Mastoid air cells are clear. Impression: New paranasal sinus disease. Remaining CT head without contrast exam is negative. Comment: Preliminary interpretation was made by [facility] who does not report incidental sinus findings. CT DI 70.31
--- NOTE | 2019-07-15 09:46 | XRAY ---
Indication: Lower abdominal pain, nausea, vomiting, and leukocytosis. Multiple contiguous axial images obtained through the abdomen and pelvis without contrast as ordered. Comparison: December 25, 2017. Lung bases remain clear. Heart is not enlarged. Noncontrasted stomach and bowel loops appear nonobstructed. New appendicolith without acute appendicitis. Cecum and ascending colon demonstrates new mild circumferential wall thickening with minimal pericecal stranding favoring colitis. Tiny right lower quadrant mesenteric nodes probably reactive. There is also new moderate diffuse scattered colonic fecal debris throughout including rectum. Tiny cul-de-sac free fluid possibly physiologic from rupture/leaking cyst. Gallbladder is now moderately distended up to 9.3 cm without gallstones. Left kidney demonstrates new lower calyx nonobstructing punctate calculus. Left mid to lower kidney again demonstrates a cortical hypodense lesion today measuring 2 cm in greatest axial dimension, previously 1.3 cm possibly cyst. Remaining liver, gallbladder, pancreas, spleen, adrenal glands, kidneys, ureters, bladder, uterus, and aorta appear unremarkable for noncontrast exam. Osseous structures intact. Impression: 1. New cecum and ascending colon circumferential wall thickening with minimal stranding favoring colitis. Also new diffuse fecal stasis without obstruction. 2. New appendicolith without appendicitis. 3. New abnormally distended gallbladder without gallstones. Gallbladder sonogram may yield further information. 4. New nonobstructing left renal micro-calculus. Also enlarging left renal cyst better evaluated with CT or MRI with contrast exam. 5. Tiny cul-de-sac free fluid probably physiologic from rupture/leaking cyst. Comment: Preliminary interpretation was made by [facility] who does not reports all of the above findings. Telephone report given to Dr. Hwang in the ER at 0940 hrs. on July 15, 2019.
== END 2019-07-15 02:45 | disposition home or self-care (01) ==
LOC: ED 21:06
DX: R50.9 Fever, unspecified (principal); R11.10 Vomiting, unspecified; B34.9 Viral infection, unspecified
CPT/HCPCS: 36000; 36415; 70450; 74176; 80053; 80307; 81001; 82150; 83605; 83690; 85025; 86308; 87040; 87086; 87631; 87651; 96360; 96361; 96372; 96374; 96375; 96376; 99284; J1170; J2405; J2550; A9270-GY

== ENCOUNTER 2019-07-15 11:09 | Emergency (ER) | payer MEDICAID ==
[2019-07-15] MEDS ORDERED: Sodium Chloride 0.9% 1000 ML 1,000 ML IV STA (11:12)
--- NOTE | 2019-07-15 11:14 | ERPHSYRPT ---
- History of Present Illness Time Seen by Provider: 07/15/19 11:19 Source: patient, family, old records Exam Limitations: no limitations Physician History: PT IS A 24 Y/O WITH A HX OF HYPERTENSION PRESENTS C/O INTRACTABLE NAUSEA AND ABD PAIN WITH TEMP TO 100.7 ORAL AT HOME. PT WAS SEEN IN ER YESTERDAY C/O RIGHT SIDED ABD DISCOMFORT THAT IS SHARP AND ACHY / NO RELIEVNG OR EXACERBATING FACTORS. IT IS ACCOMPANIED BY NAUSEA. SHE HAS NOT VOMITED SINCE RECEIVING ANTIEMETICS IN ER YESTERDAY. NO CHILLS/RIGORS. NO DIARRHEA. PT STATES NO BM X 3 DAYS BUT USUALLY DOES NOT GO FOR 4-5 DAYS AT A TIME. NO CP/SOB. PT HAD CT READ BY MALAIKA NAD AND LOCAL RAD READ REPORTS FINDINGS CONSISTENT WITH RIGHT SIDED COLITIS. I CALLED PT AT HOME AND SHE TOLD ME OVER THE PHONE THAT PAIN NOT IMPROVED, WASNT TOLERATING POS AND WAS FEELING WORSE. I OFFERED TO CALL IN ABX BUT PT FELT SHE NEEDED RE-EVALUATION IN THE ER. PT TOOK HER LABETELOL BUT NOT HER LISINOPRIL TODAY. Allergies/Adverse Reactions: Penicillins Allergy (Severe, Verified 07/15/19 11:28) Hives Home Medications: Labetalol HCl 100 mg [Trandate 100 MG] 300 mg PO Q4H PRN PRN 04/30/17 [ History] Ranitidine HCl 150 mg PO Q4H PRN PRN 04/30/17 [History] Diphenhydramine HCl 25 mg [Benadryl 25 mg Capsule] 25 mg PO Q4HPRN PRN 06/24 [History] Hx Tetanus, Diphtheria Vaccination/Date Given: Yes Hx Influenza Vaccination/Date Given: No Hx Pneumococcal Vaccination/Date Given: No - Review of Systems Constitutional: No Symptoms, No Fever, No Chills, No Fatigue, No Lethargy, No Malaise, No Night Sweats, No Weakness, No Weight Loss Eyes: No Symptoms, No Discharge, No Eye Pain, No Eye Redness, No Itchy, No Photophobia, No Tearing, No Vision Changes, No Double Vision, No Foreign Body Sensation Ears, Nose, & Throat: No Symptoms, No Ear Pain, No Ear Discharge, No Hearing Changes, No Tinnitus, No Nose Congestion, No Nose Discharge, No Epistaxis, No Mouth Pain, No Mouth Swelling, No Throat Pain, No Throat Swelling, No Hoarse, No Painful Swallowing, No Stridor Respiratory: No Symptoms, No Cough, No Cyanosis, No Dyspnea, No Dyspnea on Exertion (NOLEN), No Stridor, No Wheezing Cardiac: No Symptoms, No Chest Pain, No Edema, No Palpitations, No Syncope, No Orthopnea Abdominal/Gastrointestinal: No Symptoms, Abdominal Pain, Nausea, Vomiting, No Diarrhea, No Constipation, No Hematemesis, No Hematochezia, No Melena, No Dysphagia, No Appetite Changes Genitourinary Symptoms: No Symptoms, No Dysuria, No Frequency, No Hematuria, No Hesitancy, No Incontinence, No Urgency, No Urinary Retention, No Flank Pain, No Menorrhagia, No , No Vaginal Bleeding, No Vaginal Discharge Musculoskeletal: No Symptoms, No Arthralgias, No Back Pain, No Neck Pain, No Deformity, No Fall, No Injury, No Joint Redness, No Joint Pain, No Joint Swelling, No Myalgias Skin: No Symptoms, No Cellulitis, No Decubiti, No Induration, No Pruritis, No Rash, No Skin Lesions, No Dryness Neurological: No Symptoms, No Dizziness, No Focal Weakness, No Gait Changes, No Headache, No Irritability, No Lethargy, No Paralysis, No Parasthesia, No Seizure , No Sensory Changes, No Speech Changes, No Tics, No Tremors, No Vertigo Psychological: No Symptoms, No Alcohol Abuse, No Drug Abuse, No Anxiety, No Depression, No Suicidal Ideations, No Homicidal Ideations, No Emotional Lability , No Hallucinations, No Memory Loss, No Mood Changes Endocrine: No Symptoms, No Polyuria, No Polydipsia, No Hair Changes, No Cold Intolerance, No Excessive Sweating, No Goiter Hematologic/Lymphatic: No Symptoms, No Anemia, No Blood Clots, No Easy Bleeding , No Gum Bleeding, No Easy Bruising, No Adenopathy Immunological/Allergic: No Symptoms All Other Systems: Reviewed and Negative - Past Medical History Pertinent Past Medical History: Yes Neurological History: No Pertinent History ENT History: No Pertinent History Cardiac History: Hypertension Respiratory History: No Pertinent History Endocrine Medical History: No Pertinent History Musculoskeletal History: Arthritis GI Medical History: GERD History: Other Psycho-Social History: Anxiety, Depression Female Reproductive Disorders: No Pertinent History Other Medical History: PAST DX OF STAGE I KIDNEY FAILURE. 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 - Social History Smoking Status: Never smoker Exposure to second hand smoke: Yes Drug Use: none Patient Lives Alone: No - Nursing Vital Signs Nursing Vital Signs: Initial Vital Signs Temperature 99.3 F 07/15/19 11:15 Pulse Rate 104 H 07/15/19 11:15 Respiratory Rate 20 07/15/19 11:15 Blood Pressure 172/136 07/15/19 11:15 O2 Sat by Pulse Oximetry 96 07/15/19 11:15 Pain Scale Pain Intensity 9 - Physical Exam General Appearance: no apparent distress, mild distress, alert Eye Exam: PERRL/EOMI, eyes nml inspection, other (fundi normal evan), No scleral icterus, No pale conjunctivae, No photophobia, No EOM palsy/anisocoria Ears, Nose, Throat Exam: normal ENT inspection, TMs normal, pharynx normal, TM abnormal (L), other (uvula midline, floor of mouth soft, VERY POOR DENTITION), No moist mucous membranes, No dry mucous membranes, No TM abnormal (R), No pharyngeal erythema, No tonsillar exudate Neck Exam: normal inspection, non-tender, supple, full range of motion, No meningismus, No mass, No Brudzinski, No Kernig's, No carotid bruit, No JVD, No limited range of motion, No lymphadenopathy, No midline tenderness, No thyromegaly Respiratory Exam: normal breath sounds, lungs clear, airway intact, No chest tenderness, No respiratory distress, No diminished breath sounds, No accessory muscle use, No prolonged expirations, No crackles/rales, No rhonchi, No wheezing , No stridor, No pleural rub Cardiovascular Exam: regular rate/rhythm, normal heart sounds, normal peripheral pulses, capillary refill <2 sec, No murmur, No friction rub, No gallop, No tachycardia, No bradycardia, No irregular, No capillary refill 2-3 sec, No capillary refill >3 sec, No edema, No pulse deficit Gastrointestinal/Abdomen Exam: soft, normal bowel sounds, tenderness (RUQ, RLQ TTP WITH VOLUNTARY GUARDING NO REBOUND + BS X 4), No distention, No mass, No guarding, No ecchymosis, No pulsatile mass, No rebound, No hernia, No hepatomegaly, No organomegaly, No splenomegaly, No bruit Pelvic Exam: normal external exam Rectal Exam: deferred Back Exam: normal inspection, normal range of motion, other (neg slr evan, no sacral anesthesia, dtr 2/4 evan patella), No CVA tenderness, No vertebral tenderness, No rash, No decreased range of motion, No muscle spasm, No point tenderness Extremity Exam: normal inspection, normal range of motion, pelvis stable, No amputations, No contusions, No calf tenderness, No deformities, No lacerations, No parasthesia, No paralysis, No inflammation, No joint swelling, No limited range of motion, No pedal edema, No swelling, No tenderness Neurologic Exam: alert, oriented x 3, cooperative, coremaker experimental II-XII nml as tested, normal mood/affect, nml cerebellar function, nml station & gait, sensation nml, No motor deficits, No sensory deficit, No disoriented, No confusion, No agitation, No uncooperative, No intoxicated appearance, No depressed mood/affect , No motor weakness, No facial droop, No slurred speech, No aphasia, No dysarthria, No abnormal gait, No abnormal cerebellar tests, No abnormal coremaker experimental II- XII, No EOM palsy Skin Exam: normal color, warm, dry, No rash, No petechiae, No jaundice, No abrasion, No cyanosis, No diaphoresis, No decubitus, No embolic lesions, No ecchymosis, No jaundice, No laceration, No mottled, No pale Lymphatic Exam: No adenopathy SpO2 Interpretation: normal O2 Delivery: Room Air - Course Nursing assessment & vital signs reviewed: Yes EKG Interpreted by Me: RATE, Sinus Rhythm, NORMAL AXIS, NORMAL INTERVALS, NORMAL QRS, Non-specific ST Changes, Other (TWI V4 OTHERWISE UNCHANGED FROM PRIOR) Ordered Tests: Active Orders 24 hr Category Date Time Status EKG-ER Only STAT Care 07/15/19 13:39 Active CHEST 2 VIEWS (PA AND LAT) Stat Exams 07/15/19 13:39 Completed HEAD WITHOUT CONTRAST [CT] Stat Exams 07/15/19 13:38 Completed BLOOD CULTURE Stat Lab 07/15/19 11:52 Received CBC W DIFF Stat Lab 07/15/19 11:20 Completed CMP Stat Lab 07/15/19 11:20 Completed HCG QUALITATIVE,SERUM Stat Lab 07/15/19 11:20 Completed LIPASE Stat Lab 07/15/19 11:20 Completed Lactic Acid Stat Lab 07/15/19 11:24 Completed TROPONIN Q3H Lab 07/15/19 14:30 Received TROPONIN Q3H Lab 07/15/19 16:45 Ordered TROPONIN Q3H Lab 07/15/19 19:45 Ordered TROPONIN Q3H Lab 07/15/19 22:45 Ordered TROPONIN Q3H Lab 07/16/19 01:45 Ordered UA W/RFX UR CULTURE Stat Lab 07/15/19 12:44 Completed Medication Summary Discontinued Medications Generic Name Dose Route Start Last Admin Trade Name Freq PRN Reason Stop Dose Admin Diphenhydramine HCl 25 mg 07/15/19 11:31 07/15/19 11:54 Benadryl 50 Mg/Ml IV 07/15/19 11:32 25 mg STAT ONE Administration Diphenhydramine HCl Confirm 07/15/19 11:37 Benadryl 50 Mg/Ml Administered 07/15/19 11:38 Dose 50 mg .ROUTE .STK-MED ONE Droperidol 1.25 mg 07/15/19 11:28 07/15/19 11:54 Inapsine 5 Mg/2 Ml IV 07/15/19 11:29 1.25 mg STAT ONE Administration Droperidol Confirm 07/15/19 11:37 Inapsine 5 Mg/2 Ml Administered 07/15/19 11:38 Dose 5 mg .ROUTE .STK-MED ONE Sodium Chloride 1,000 mls @ 999 mls/hr 07/15/19 11:12 07/15/19 12:53 Sodium Chloride 0.9% 1000 Ml IV 07/15/19 12:12 Infused .Q1H1M STA Infusion Sodium Chloride Confirm 07/15/19 11:19 Sodium Chloride 0.9% 1000 Ml Administered 07/15/19 11:20 Dose 1,000 mls @ ud .ROUTE .STK-MED ONE Metronidazole 500 mg in 100 mls @ 200 mls/hr 07/15/19 11:26 07/15/19 12:54 Flagyl 500 Mg Ivpb IV 07/15/19 11:55 Infused STAT STA Infusion Levofloxacin/Dextrose 500 mg in 100 mls @ 100 mls/hr 07/15/19 11:28 07/15/19 13:00 Levofloxacin 500mg/100ml D5w IV 07/15/19 12:27 Infused STAT STA Infusion Metronidazole Confirm 07/15/19 11:38 Flagyl 500 Mg Ivpb Administered 07/15/19 11:39 Dose 500 mg in 100 mls @ ud IV .STK-MED ONE Levofloxacin/Dextrose Confirm 07/15/19 11:38 Levofloxacin 500mg/100ml D5w Administered 07/15/19 11:39 Dose 500 mg in 100 mls @ ud IV .STK-MED ONE Ketorolac Tromethamine 15 mg 07/15/19 11:28 07/15/19 12:45 Toradol 30 Mg Injection IV 07/15/19 11:29 15 mg STAT ONE Administration Ketorolac Tromethamine Confirm 07/15/19 12:41 Toradol 30 Mg Injection Administered 07/15/19 12:42 Dose 30 mg .ROUTE .STK-MED ONE Labetalol HCl 10 mg 07/15/19 13:37 07/15/19 13:42 Trandate 20 Mg/5 Ml Syringe IV 07/15/19 13:38 Not Given STAT ONE Labetalol HCl 10 mg 07/15/19 13:42 07/15/19 13:46 Trandate 100mg/20 Ml Mdv IV 07/15/19 13:43 10 mg STAT ONE Administration Labetalol HCl Confirm 07/15/19 13:45 Trandate 100 Mg/20 Ml Mdv For Drip Administered 07/15/19 13:46 Dose 100 mg IV .STK-MED ONE Lab/Rad Data: Laboratory Result Diagrams 07/15/19 11:20 07/15/19 11:20 Laboratory Results 07/15/19 07/15/19 07/15/19 Range/Units 12:44 11:24 11:20 WBC (4.0-10.5) K/mm3 RBC (4.1-5.4) M/mm3 Hgb (12.0-16.0) gm/dl Hct (35-47) % MCV (78-100) fl MCH (26-32) pg MCHC (32-36) g/dl RDW (11.5-14.0) % Plt Count (150-450) K/mm3 MPV (6-9.5) fl Gran % (36.0-66.0) % Eos # (Auto) (0-0.5) Absolute Lymphs (auto) (1.0-4.6) Absolute Monos (auto) (0.0-1.3) Lymphocytes % (24.0-44.0) % Monocytes % (0.0-12.0) % Eosinophils % (0.00-5.0) % Basophils % (0.0-0.4) % Absolute Granulocytes (1.4-6.9) Basophils # (0-0.4) Sodium (137-145) mmol/L Potassium (3.5-5.1) mmol/L Chloride (98-107) mmol/L Carbon Dioxide (22-30) mmol/L Anion Gap (5-15) MEQ/L BUN (7-17) mg/dL Creatinine (0.52-1.04) mg/dL Estimated GFR ML/MIN Glucose (74-106) mg/dL Lactic Acid 0.9 (0.4-2.0) Calcium (8.4-10.2) mg/dL Total Bilirubin (0.2-1.3) mg/dL AST (14-36) U/L ALT (0-35) U/L Alkaline Phosphatase (38-126) U/L Serum Total Protein (6.3-8.2) g/dL Albumin (3.5-5.0) g/dL Lipase (23-300) U/L Serum , Qual NEGATIVE (Negative) Urine Color YELLOW (YELLOW) Urine Appearance SLIGHTLY CLOUDY (CLEAR) Urine pH 5.0 (5-6) Ur Specific [place] 1.012 (1.005-1.025) Urine Protein 100 (Negative) Urine Ketones NEGATIVE (NEGATIVE) Urine Blood NEGATIVE (0-5) Hiram/ul Urine Nitrite NEGATIVE (NEGATIVE) Urine Bilirubin NEGATIVE (NEGATIVE) Urine Urobilinogen NEGATIVE (0-1) mg/dL Ur Leukocyte Esterase NEGATIVE (NEGATIVE) Urine WBC (Auto) 3-5 (0-5) /HPF Urine RBC (Auto) 0-2 (0-2) /HPF U Epithel Cells (Auto) RARE (FEW) /HPF Urine Bacteria (Auto) RARE (NEGATIVE) /HPF Urine Mucus (Auto) SLIGHT (NEGATIVE) /HPF Urine Culture Reflexed NO (NO) Urine Glucose NEGATIVE (NEGATIVE) mg/dL 07/15/19 07/15/19 Range/Units 11:20 11:20 WBC 14.1 H (4.0-10.5) K/mm3 RBC 4.02 L (4.1-5.4) M/mm3 Hgb 12.1 (12.0-16.0) gm/dl Hct 36.9 (35-47) % MCV 91.8 (78-100) fl MCH 30.0 (26-32) pg MCHC 32.8 (32-36) g/dl RDW 17.2 H (11.5-14.0) % Plt Count 423 (150-450) K/mm3 MPV 10.0 H (6-9.5) fl Gran % 79.5 H (36.0-66.0) % Eos # (Auto) 0.05 (0-0.5) Absolute Lymphs (auto) 1.65 (1.0-4.6) Absolute Monos (auto) 1.16 (0.0-1.3) Lymphocytes % 11.7 L (24.0-44.0) % Monocytes % 8.3 (0.0-12.0) % Eosinophils % 0.4 (0.00-5.0) % Basophils % 0.1 (0.0-0.4) % Absolute Granulocytes 11.17 H (1.4-6.9) Basophils # 0.02 (0-0.4) Sodium 141 (137-145) mmol/L Potassium 3.5 D (3.5-5.1) mmol/L Chloride 102 (98-107) mmol/L Carbon Dioxide 27 (22-30) mmol/L Anion Gap 15.5 H (5-15) MEQ/L BUN 13 (7-17) mg/dL Creatinine 0.75 (0.52-1.04) mg/dL Estimated GFR > 60.0 ML/MIN Glucose 136 H (74-106) mg/dL Lactic Acid (0.4-2.0) Calcium 9.3 (8.4-10.2) mg/dL Total Bilirubin 0.30 (0.2-1.3) mg/dL AST 20 (14-36) U/L ALT 12 (0-35) U/L Alkaline Phosphatase 73 (38-126) U/L Serum Total Protein 7.0 (6.3-8.2) g/dL Albumin 3.7 (3.5-5.0) g/dL Lipase 38 (23-300) U/L Serum , Qual (Negative) Urine Color (YELLOW) Urine Appearance (CLEAR) Urine pH (5-6) Ur Specific [place] (1.005-1.025) Urine Protein (Negative) Urine Ketones (NEGATIVE) Urine Blood (0-5) Hiram/ul Urine Nitrite (NEGATIVE) Urine Bilirubin (NEGATIVE) Urine Urobilinogen (0-1) mg/dL Ur Leukocyte Esterase (NEGATIVE) Urine WBC (Auto) (0-5) /HPF Urine RBC (Auto) (0-2) /HPF U Epithel Cells (Auto) (FEW) /HPF Urine Bacteria (Auto) (NEGATIVE) /HPF Urine Mucus (Auto) (NEGATIVE) /HPF Urine Culture Reflexed (NO) Urine Glucose (NEGATIVE) mg/dL - Progress Progress: improved Progress Note: 07/15/19 11:25 WILL HYDRATE. WILL GIVE IV ABX AND ANTIEMETICS. WILL RECHECK LABS. ? ADMIT 07/15/19 12:36 HR < 100. S/NT/ND/NO HSM + BS X 4. AWAIT UA. WILL GIVE PO FLUID CHALLANGE. IMPROVED WBC. PT HAS NOT BEEN PUSHING FLUIDS AT HOME. STILL WEARING LAST NIGHT' S GOWN AND PANTS FROM ER VISIT. AWAIT UA. IF PT CAN TOLERATE PO FLUIDS WILL DC HOME. IF UNABLE WILL ADMIT. 07/15/19 13:40 HAD LARGE BM. FEELS SOMEWHAT IMPROVED AND TOLERATING PO. SBP PERSISTENTLY ELEVATED AND PT C/O GOMEZ. WILL CHECK CT HEAD, EKG, TROP. WILL CHECK CXR. WILL GIVE LABETALOL. PT DID NOT TAKE HER LISINOPRIL. PT REQUESTING ADDITIONAL PAIN MEDS HOWEVER EXAM IS BENIGN. 07/15/19 14:18 ACCEPTABLE SBP AFTER LABETALOL. CXR NAD. CT HEAD NAD. AWAIT EKG AND TROP. PT TOLERATING PO FLUIDS. OFFERED ADMISSION, PT STATES SHE WOULD LIKE TO TRY TO GO HOME. PLAN DC WITH LEVAQUIN AND FLAGYL FUP GI. NO MENINGISMUS OR PHOTOPHOBIA FUNDI ARE CLEAR. MILD COLITIS ON CT 07/15/19 14:20 07/15/19 15:21 TROP NEG WILL DC WTIH FUP Counseled pt/family regarding: drug and/or alcohol abuse, lab results, diagnosis , need for follow-up, rad results, smoking cessation - Departure Departure Disposition: Home Clinical Impression: Acute colitis, Poorly-controlled hypertension Condition: Stable Critical Care Time: No Referrals: JOANNE BAL MD [Primary Care Provider] - Instructions: Colitis, Acute Abdomen (Belly Pain) Additional Instructions: TO ER IF WORSENING ABDOMINAL PAIN, FEVER OVER 102, INTRACTABLE VOMITING, STOOLING BLACK OR BLOODY TAKE MEDICINES DIRECTED PLEASE FOLLOW UP WITH DR. POST OF GASTROENTEROLOGY IN [place] FOR RE- EVALUATION AND DEFINITIVE CARE STOP USING TOBACCO PRODUCTS THESE WILL WORSEN YOUR CONDITION Prescriptions: Levofloxacin [Levaquin] 500 mg PO DAILY #10 tablet Metronidazole 500 mg [Flagyl 500 MG] 500 mg PO BID #20 tablet
[2019-07-15] MEDS ORDERED: Sodium Chloride 0.9% 1000 ML 1,000 ML ONE (11:19)
[2019-07-15] MEDS ORDERED: FLAGYL 500 MG IVPB 500 MG/100 ML BAG IV STA (11:26)
[2019-07-15] MEDS ORDERED: Levofloxacin 500MG/100ML D5W 500 MG/100 ML BAG IV STA (11:28)
[2019-07-15] MEDS ORDERED: Inapsine 5 MG/2 ML IV ONE (11:28)
[2019-07-15] MEDS ORDERED: TORAdol 30 mg Injection IV ONE (11:28)
[2019-07-15] MEDS ORDERED: BENADRYL 50 MG/ML IV ONE (11:31)
[2019-07-15] MEDS ORDERED: Inapsine 5 MG/2 ML ONE (11:37)
[2019-07-15] MEDS ORDERED: BENADRYL 50 MG/ML ONE (11:37)
[2019-07-15] MEDS ORDERED: Levofloxacin 500MG/100ML D5W 500 MG/100 ML BAG IV ONE (11:38)
[2019-07-15] MEDS ORDERED: FLAGYL 500 MG IVPB 500 MG/100 ML BAG IV ONE (11:38)
[2019-07-15 11:42] LABS: Absolute Neutrophil Ct (ANC) 11.17 (1.4-6.9); BASOPHIL % 0.1 % (0.0-0.4); Basophil (Absolute #) 0.02 (0-0.4); Eosinophil % 0.4 % (0.00-5.0); Eosinophil (Absolute #) 0.05 (0-0.5); Hematocrit 36.9 % (35-47); Hemoglobin 12.1 gm/dl (12.0-16.0); Lymphocyte (Absolute #) 1.65 (1.0-4.6); Lymphocytes % 11.7 % (24.0-44.0); Mean Cell Volume 91.8 fl (78-100); Mean Corpuscular Hgb Concent. 32.8 g/dl (32-36); Monocyte (Absolute #) 1.16 (0.0-1.3); Monocytes % 8.3 % (0.0-12.0); Neutrophil % 79.5 % (36.0-66.0); Platelet Count 423 K/mm3 (150-450); Red Blood Count 4.02 M/mm3 (4.1-5.4); Red Cell Distribution Width 17.2 % (11.5-14.0); White Blood Count 14.1 K/mm3 (4.0-10.5)
[2019-07-15 11:58] LABS: ALBUMIN 3.7 g/dL (3.5-5.0); ALKALINE PHOSPHATASE 73 U/L (38-126); ANION GAP 15.5 MEQ/L (5-15); BLOOD UREA NITROGEN 13 mg/dL (7-17); CHLORIDE 102 mmol/L (98-107); Calcium 9.3 mg/dL (8.4-10.2); Carbon Dioxide 27 mmol/L (22-30); Creatinine 1 0.75 mg/dL (0.52-1.04); Glucose 136 mg/dL (74-106); LIPASE 38 U/L (23-300); Potassium 3.5 mmol/L (3.5-5.1); SGOT/AST 20 U/L (14-36); SGPT/ALT 12 U/L (0-35); SODIUM 141 mmol/L (137-145)
[2019-07-15] MEDS ORDERED: TORAdol 30 mg Injection ONE (12:41)
[2019-07-15 13:06] LABS: Appearance SLIGHTLY CLOUDY (CLEAR); Bacteria RARE /HPF (NEGATIVE); Bilirubin NEGATIVE (NEGATIVE); Blood NEGATIVE Ery/ul (0-5); Epithelial Cells RARE /HPF (FEW); Glucose NEGATIVE (NEGATIVE); Ketones NEGATIVE (NEGATIVE); Leukocyte Esterase NEGATIVE (NEGATIVE); Mucus SLIGHT /HPF (NEGATIVE); Nitrite NEGATIVE (NEGATIVE); Protein,Urine Dip 100 (Negative); RBC 0-2 /HPF (0-2); Specific Gravity 1.012 (1.005-1.025); Urobilinogen NEGATIVE mg/dL (0-1)
[2019-07-15 13:21] VITALS: O2SAT 98
[2019-07-15] MEDS ORDERED: TRANDATE 20 MG/5 ML SYRINGE IV ONE (13:37)
[2019-07-15] MEDS ORDERED: TRANDATE 100MG/20 ML MDV IV ONE (13:42)
[2019-07-15] MEDS ORDERED: TRANDATE 100 MG/20 ML MDV FOR DRIP IV ONE (13:45)
--- NOTE | 2019-07-15 14:29 | XRAY ---
Indication: Hypertension. Stomach issues. Comparison: December 15, 2018. PA/lateral chest remains hyperinflated and clear. Heart is not enlarged. Bony thorax intact. No new/acute findings. Impression: Stable nonacute hyperinflated chest.
--- NOTE | 2019-07-15 14:32 | XRAY ---
Indication: Headache and weakness. Multiple contiguous axial images obtained through the head without contrast. Comparison: One day earlier. Again normal appearing brain parenchyma, ventricles, and bony calvarium with bilateral ethmoid and left maxillary sinus disease. No new/acute findings. Impression: Stable normal CT head without contrast exam with again paranasal sinus disease. CT DI 70.62
[2019-07-15 15:40] VITALS: BP 166/107; PULSE 88
== END 2019-07-15 15:38 | disposition home or self-care (01) ==
LOC: ED 11:09
DX: K52.9 Noninfective gastroenteritis and colitis, unspecified (principal); I10 Essential (primary) hypertension
CPT/HCPCS: 36000; 36415; 70450; 71046; 80053; 81001; 81025; 83605; 83690; 84484; 85025; 86140; 87040; 93005; 96360; 96365; 96368; 96374; 96375; 99285; J1200; J1885; J1956

== ENCOUNTER 2019-08-07 20:54 | Observation (INO) | payer MEDICAID ==
[2019-08-07] MEDS ORDERED: solu-MEDROL 125 MG IV ONE (21:08)
[2019-08-07] MEDS ORDERED: Sodium Chloride 0.9% 1000 ML 1,000 ML IV STA (21:08)
[2019-08-07] MEDS ORDERED: DUONEB 0.5-3 MG/3 ml Neb IH ONE ×2 (21:08→21:17)
[2019-08-07] MEDS ORDERED: solu-MEDROL 125 MG ONE (21:20)
[2019-08-07] MEDS ORDERED: Sodium Chloride 0.9% 1000 ML 1,000 ML ONE (21:21)
[2019-08-07 21:28] LABS: Absolute Neutrophil Ct (ANC) 5.27 (1.4-6.9); BASOPHIL % 0.6 % (0.0-0.4); Basophil (Absolute #) 0.06 (0-0.4); Eosinophil % 6.1 % (0.00-5.0); Eosinophil (Absolute #) 0.62 (0-0.5); Hematocrit 40.7 % (35-47); Hemoglobin 13.5 gm/dl (12.0-16.0); Lymphocyte (Absolute #) 3.32 (1.0-4.6); Lymphocytes % 32.5 % (24.0-44.0); Mean Cell Volume 91.5 fl (78-100); Mean Corpuscular Hemoglobin 30.3 pg (26-32); Mean Corpuscular Hgb Concent. 33.2 g/dl (32-36); Mean Platelet Volume 9.8 fl (6-9.5); Monocyte (Absolute #) 0.95 (0.0-1.3); Monocytes % 9.3 % (0.0-12.0); Neutrophil % 51.5 % (36.0-66.0); Platelet Count 468 K/mm3 (150-450); Red Blood Count 4.45 M/mm3 (4.1-5.4); Red Cell Distribution Width 16.2 % (11.5-14.0); White Blood Count 10.2 K/mm3 (4.0-10.5)
[2019-08-07 21:49] LABS: ANION GAP 12.7 MEQ/L (5-15); BILIRUBIN,TOTAL 0.3 mg/dL (0.2-1.3); Calcium 9.3 mg/dL (8.4-10.2); Creatinine 1 1.25 mg/dL (0.52-1.04); Potassium 3.8 mmol/L (3.5-5.1); Total Protein 7.4 g/dL (6.3-8.2)
[2019-08-07] MEDS ORDERED: Lasix 40 MG/4 ML IV ONE (21:57)
[2019-08-07] MEDS ORDERED: Lasix 40 MG/4 ML ONE (21:59)
[2019-08-07 22:01] LABS: INFLUENZA A NEGATIVE (NEGATIVE); INFLUENZA B NEGATIVE (NEGATIVE); RESPIRATORY SYNCTIAL VIRUS NEGATIVE (Negative)
[2019-08-07 22:33] LABS: Appearance SLIGHTLY CLOUDY (CLEAR); Bilirubin NEGATIVE (NEGATIVE); Blood NEGATIVE Ery/ul (0-5); Epithelial Cells RARE /HPF (FEW); Glucose NEGATIVE (NEGATIVE); Ketones NEGATIVE (NEGATIVE); Leukocyte Esterase NEGATIVE (NEGATIVE); Mucus SLIGHT /HPF (NEGATIVE); Nitrite NEGATIVE (NEGATIVE); Protein,Urine Dip >=500 (Negative); Specific Gravity 1.028 (1.005-1.025); Urobilinogen NEGATIVE mg/dL (0-1); WBC 0-2 /HPF (0-5)
[2019-08-07 22:34] LABS: Bacteria NONE SEEN /HPF (NEGATIVE)
[2019-08-07 23:10] LABS: Amphetamine,Urine NEGATIVE (NEGATIVE); Barbiturate,Urine NEGATIVE (NEGATIVE); Benzodiazepine,Urine NEGATIVE (NEGATIVE); Cocaine,Urine NEGATIVE (NEGATIVE); Methadone,Urine NEGATIVE (NEGATIVE); Opiate,Urine POSITIVE (NEGATIVE); PCP,Urine NEGATIVE (NEGATIVE); THC,Urine NEGATIVE (NEGATIVE)
[2019-08-07] MEDS ORDERED: APRESOLINE 20 MG/ML INJ IV ONE (23:18)
[2019-08-07] MEDS ORDERED: APRESOLINE 20 MG/ML INJ ONE (23:24)
--- NOTE | 2019-08-07 23:27 | ERPHSYRPT ---
- History of Present Illness Time Seen by Provider: 08/07/19 21:24 Source: patient, family Exam Limitations: clinical condition Patient Subjective Stated Complaint: pt states she has been coughing and sometimes feeling like she cant catch her breath intermittently for the last 3 days. s Triage Nursing Assessment: pt alert and oreinted, answers questions approp. pt ambulatory with steady gait noted. respirations nonlabored with insp and exp wheezes throughout. skin pnk warm and dery. Timing/Duration: day(s) (4) Activities at Onset: none Severity of Dyspnea-Max: severe Severity of Dyspnea-Current: severe Possible Cause: occasional episodes Modifying Factors: Improves With: activity, albuterol inhaler, albuterol nebulizer, deep breath Associated Symptoms: cough, wheezing, chills, hemoptysis, productive cough International travel in last 2 weeks: No Allergies/Adverse Reactions: Penicillins Allergy (Severe, Verified 08/07/19 21:32) Hives Home Medications: No Reportable Medications [No Reported Medications] 08/07/19 [History] Hx Tetanus, Diphtheria Vaccination/Date Given: Yes Hx Influenza Vaccination/Date Given: No Hx Pneumococcal Vaccination/Date Given: No Immunizations Up to Date: Yes - Review of Systems Constitutional: Fever, Chills Eyes: No Symptoms Ears, Nose, & Throat: No Symptoms Respiratory: Cough, Dyspnea, Dyspnea on Exertion (NOLEN), Stridor, Wheezing Cardiac: No Chest Pain, No Edema, No Syncope Abdominal/Gastrointestinal: No Abdominal Pain, No Nausea, No Vomiting, No Diarrhea Genitourinary Symptoms: No Dysuria Musculoskeletal: No Back Pain, No Neck Pain Skin: No Rash Neurological: No Dizziness, No Focal Weakness, No Sensory Changes Psychological: No Symptoms Endocrine: No Symptoms All Other Systems: Reviewed and Negative - Past Medical History Pertinent Past Medical History: Yes Neurological History: No Pertinent History ENT History: No Pertinent History Cardiac History: Hypertension Respiratory History: No Pertinent History Endocrine Medical History: No Pertinent History Musculoskeletal History: Arthritis GI Medical History: Colitis, Crohns Disease, GERD History: Other Psycho-Social History: Anxiety, Depression Female Reproductive Disorders: No Pertinent History Other Medical History: PAST DX OF STAGE I KIDNEY FAILURE. 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 - Social History Smoking Status: Never smoker Exposure to second hand smoke: Yes Drug Use: none Patient Lives Alone: No - Female History Hx Last Menstrual Period: jul 14 Hx Now: No - Nursing Vital Signs Nursing Vital Signs: Initial Vital Signs Temperature 97.8 F 08/07/19 20:56 Pulse Rate 97 H 08/07/19 20:56 Respiratory Rate 20 08/07/19 20:56 Blood Pressure 208/136 08/07/19 20:56 O2 Sat by Pulse Oximetry 95 08/07/19 20:56 Pain Scale Pain Intensity 0 - Physical Exam General Appearance: no apparent distress, alert Eye Exam: PERRL/EOMI Neck Exam: normal inspection, supple Respiratory Exam: respiratory distress, diminished breath sounds, accessory muscle use, prolonged expirations, crackles/rales, wheezing Cardiovascular/Chest Exam: normal heart sounds, regular rate/rhythm Abdominal/Gastrointestinal Exam: soft, No tenderness, No distention, No mass Extremity Exam: non-tender, normal range of motion, normal inspection, no calf tenderness, no pedal edema Neurologic Exam: alert, oriented x 3, cooperative, 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 as tested, sensation nml, No motor deficits Skin Exam: normal color, warm, No dry SpO2 Interpretation: normal SpO2: 97 - Radiology Exams Chest X-ray Interpretation: Interpreted by me, Negative Ordered Tests: Active Orders 24 hr Category Date Time Status CHEST 1 VIEW (PORTABLE) Stat Exams 08/07/19 21:08 Taken CBC W DIFF Stat Lab 08/07/19 21:24 Completed CMP Stat Lab 08/07/19 21:24 Completed D-DIMER QUANTITATION Stat Lab 08/07/19 21:24 Completed NT PRO BNP Stat Lab 08/07/19 21:24 Completed Sputum Culture [CULTURE,SPUTUM] Stat Lab 08/07/19 22:23 Received TROPONIN Q3H Lab 08/07/19 21:00 Completed UA W/RFX UR CULTURE Stat Lab 08/07/19 22:24 Completed Urine Triage Profile Stat Lab 08/07/19 22:00 Completed Respiratory Therapy Assessment DAILY RT 08/07/19 21:17 Active Medication Summary Discontinued Medications Generic Name Dose Route Start Last Admin Trade Name Freq PRN Reason Stop Dose Admin Albuterol/Ipratropium 3 ml 08/07/19 21:08 08/07/19 21:18 Duoneb 0.5-3 Mg/3 Ml Neb IH 08/07/19 21:09 3 ml STAT ONE Administration Albuterol/Ipratropium Confirm 08/07/19 21:17 Duoneb 0.5-3 Mg/3 Ml Neb Administered 08/07/19 21:18 Dose 3 ml IH .STK-MED ONE Furosemide 40 mg 08/07/19 21:57 08/07/19 22:02 Lasix 40 Mg/4 Ml IV 08/07/19 21:58 40 mg STAT ONE Administration Furosemide Confirm 08/07/19 21:59 Lasix 40 Mg/4 Ml Administered 08/07/19 22:00 Dose 40 mg .ROUTE .STK-MED ONE Hydralazine HCl 20 mg 08/07/19 23:18 Apresoline 20 Mg/Ml Inj IV 08/07/19 23:19 STAT ONE Sodium Chloride 1,000 mls @ 999 mls/hr 08/07/19 21:08 08/07/19 22:26 Sodium Chloride 0.9% 1000 Ml IV 08/07/19 22:08 Infused .Q1H1M STA Infusion Sodium Chloride Confirm 08/07/19 21:21 Sodium Chloride 0.9% 1000 Ml Administered 08/07/19 21:22 Dose 1,000 mls @ ud .ROUTE .STK-MED ONE Methylprednisolone Sodium Succinate 125 mg 08/07/19 21:08 08/07/19 21:25 Solu-Medrol 125 Mg IV 08/07/19 21:09 125 mg STAT ONE Administration Methylprednisolone Sodium Succinate Confirm 08/07/19 21:20 Solu-Medrol 125 Mg Administered 08/07/19 21:21 Dose 125 mg .ROUTE .STK-MED ONE Lab/Rad Data: Laboratory Result Diagrams 08/07/19 21:24 08/07/19 21:24 Laboratory Results 08/07/19 08/07/19 08/07/19 Range/Units 22:24 22:00 21:24 WBC (4.0-10.5) K/mm3 RBC (4.1-5.4) M/mm3 Hgb (12.0-16.0) gm/dl Hct (35-47) % MCV (78-100) fl MCH (26-32) pg MCHC (32-36) g/dl RDW (11.5-14.0) % Plt Count (150-450) K/mm3 MPV (6-9.5) fl Gran % (36.0-66.0) % Eos # (Auto) (0-0.5) Absolute Lymphs (auto) (1.0-4.6) Absolute Monos (auto) (0.0-1.3) Lymphocytes % (24.0-44.0) % Monocytes % (0.0-12.0) % Eosinophils % (0.00-5.0) % Basophils % (0.0-0.4) % Absolute Granulocytes (1.4-6.9) Basophils # (0-0.4) D-Dimer (215-500) ng/mL Sodium (137-145) mmol/L Potassium (3.5-5.1) mmol/L Chloride (98-107) mmol/L Carbon Dioxide (22-30) mmol/L Anion Gap (5-15) MEQ/L BUN (7-17) mg/dL Creatinine (0.52-1.04) mg/dL Estimated GFR ML/MIN Glucose (74-106) mg/dL Calcium (8.4-10.2) mg/dL Total Bilirubin (0.2-1.3) mg/dL AST (14-36) U/L ALT (0-35) U/L Alkaline Phosphatase (38-126) U/L Troponin I (0.000-0.034) ng/mL NT-Pro-B Natriuret Pep (0-450) pg/mL Serum Total Protein (6.3-8.2) g/dL Albumin (3.5-5.0) g/dL Urine Color YELLOW (YELLOW) Urine Appearance SLIGHTLY CLOUDY (CLEAR) Urine pH 5.0 (5-6) Ur Specific [place] 1.028 (1.005-1.025) Urine Protein >=500 (Negative) Urine Ketones NEGATIVE (NEGATIVE) Urine Blood NEGATIVE (0-5) Hiram/ul Urine Nitrite NEGATIVE (NEGATIVE) Urine Bilirubin NEGATIVE (NEGATIVE) Urine Urobilinogen NEGATIVE (0-1) mg/dL Ur Leukocyte Esterase NEGATIVE (NEGATIVE) Urine WBC (Auto) 0-2 (0-5) /HPF Urine RBC (Auto) 3-5 (0-2) /HPF U Epithel Cells (Auto) RARE (FEW) /HPF Urine Bacteria (Auto) NONE SEEN (NEGATIVE) /HPF Other Casts (Auto) NEGATIVE (NEGATIVE) /LPF Urine Mucus (Auto) SLIGHT (NEGATIVE) /HPF Urine Culture Reflexed NO (NO) Urine Glucose NEGATIVE (NEGATIVE) mg/dL Urine Opiates Level POSITIVE (NEGATIVE) Ur Methadone NEGATIVE (NEGATIVE) Urine Barbiturates NEGATIVE (NEGATIVE) Ur Phencyclidine (PCP) NEGATIVE (NEGATIVE) Urine Amphetamine NEGATIVE (NEGATIVE) U Benzodiazepine Level NEGATIVE (NEGATIVE) Urine Cocaine NEGATIVE (NEGATIVE) Urine Marijuana (THC) NEGATIVE (NEGATIVE) Influenza Type A Ag NEGATIVE (NEGATIVE) Influenza Type B Ag NEGATIVE (NEGATIVE) RSV (PCR) NEGATIVE (Negative) 08/07/19 08/07/19 08/07/19 Range/Units 21:24 21:24 21:24 WBC 10.2 (4.0-10.5) K/mm3 RBC 4.45 (4.1-5.4) M/mm3 Hgb 13.5 (12.0-16.0) gm/dl Hct 40.7 (35-47) % MCV 91.5 (78-100) fl MCH 30.3 (26-32) pg MCHC 33.2 (32-36) g/dl RDW 16.2 H (11.5-14.0) % Plt Count 468 H (150-450) K/mm3 MPV 9.8 H (6-9.5) fl Gran % 51.5 (36.0-66.0) % Eos # (Auto) 0.62 H (0-0.5) Absolute Lymphs (auto) 3.32 (1.0-4.6) Absolute Monos (auto) 0.95 (0.0-1.3) Lymphocytes % 32.5 (24.0-44.0) % Monocytes % 9.3 (0.0-12.0) % Eosinophils % 6.1 H (0.00-5.0) % Basophils % 0.6 (0.0-0.4) % Absolute Granulocytes 5.27 (1.4-6.9) Basophils # 0.06 (0-0.4) D-Dimer 227 (215-500) ng/mL Sodium 139 (137-145) mmol/L Potassium 3.8 (3.5-5.1) mmol/L Chloride 99 (98-107) mmol/L Carbon Dioxide 31 H (22-30) mmol/L Anion Gap 12.7 (5-15) MEQ/L BUN 22 H (7-17) mg/dL Creatinine 1.25 H (0.52-1.04) mg/dL Estimated GFR 55.1 ML/MIN Glucose 128 H (74-106) mg/dL Calcium 9.3 (8.4-10.2) mg/dL Total Bilirubin 0.30 (0.2-1.3) mg/dL AST 23 (14-36) U/L ALT 14 (0-35) U/L Alkaline Phosphatase 60 (38-126) U/L Troponin I (0.000-0.034) ng/mL NT-Pro-B Natriuret Pep 1680 H (0-450) pg/mL Serum Total Protein 7.4 (6.3-8.2) g/dL Albumin 4.0 (3.5-5.0) g/dL Urine Color (YELLOW) Urine Appearance (CLEAR) Urine pH (5-6) Ur Specific [place] (1.005-1.025) Urine Protein (Negative) Urine Ketones (NEGATIVE) Urine Blood (0-5) Hiram/ul Urine Nitrite (NEGATIVE) Urine Bilirubin (NEGATIVE) Urine Urobilinogen (0-1) mg/dL Ur Leukocyte Esterase (NEGATIVE) Urine WBC (Auto) (0-5) /HPF Urine RBC (Auto) (0-2) /HPF U Epithel Cells (Auto) (FEW) /HPF Urine Bacteria (Auto) (NEGATIVE) /HPF Other Casts (Auto) (NEGATIVE) /LPF Urine Mucus (Auto) (NEGATIVE) /HPF Urine Culture Reflexed (NO) Urine Glucose (NEGATIVE) mg/dL Urine Opiates Level (NEGATIVE) Ur Methadone (NEGATIVE) Urine Barbiturates (NEGATIVE) Ur Phencyclidine (PCP) (NEGATIVE) Urine Amphetamine (NEGATIVE) U Benzodiazepine Level (NEGATIVE) Urine Cocaine (NEGATIVE) Urine Marijuana (THC) (NEGATIVE) Influenza Type A Ag (NEGATIVE) Influenza Type B Ag (NEGATIVE) RSV (PCR) (Negative) 11/02/19 Range/Units 21:00 WBC (4.0-10.5) K/mm3 RBC (4.1-5.4) M/mm3 Hgb (12.0-16.0) gm/dl Hct (35-47) % MCV (78-100) fl MCH (26-32) pg MCHC (32-36) g/dl RDW (11.5-14.0) % Plt Count (150-450) K/mm3 MPV (6-9.5) fl Gran % (36.0-66.0) % Eos # (Auto) (0-0.5) Absolute Lymphs (auto) (1.0-4.6) Absolute Monos (auto) (0.0-1.3) Lymphocytes % (24.0-44.0) % Monocytes % (0.0-12.0) % Eosinophils % (0.00-5.0) % Basophils % (0.0-0.4) % Absolute Granulocytes (1.4-6.9) Basophils # (0-0.4) D-Dimer (215-500) ng/mL Sodium (137-145) mmol/L Potassium (3.5-5.1) mmol/L Chloride (98-107) mmol/L Carbon Dioxide (22-30) mmol/L Anion Gap (5-15) MEQ/L BUN (7-17) mg/dL Creatinine (0.52-1.04) mg/dL Estimated GFR ML/MIN Glucose (74-106) mg/dL Calcium (8.4-10.2) mg/dL Total Bilirubin (0.2-1.3) mg/dL AST (14-36) U/L ALT (0-35) U/L Alkaline Phosphatase (38-126) U/L Troponin I < 0.012 (0.000-0.034) ng/mL NT-Pro-B Natriuret Pep (0-450) pg/mL Serum Total Protein (6.3-8.2) g/dL Albumin (3.5-5.0) g/dL Urine Color (YELLOW) Urine Appearance (CLEAR) Urine pH (5-6) Ur Specific [place] (1.005-1.025) Urine Protein (Negative) Urine Ketones (NEGATIVE) Urine Blood (0-5) Hiram/ul Urine Nitrite (NEGATIVE) Urine Bilirubin (NEGATIVE) Urine Urobilinogen (0-1) mg/dL Ur Leukocyte Esterase (NEGATIVE) Urine WBC (Auto) (0-5) /HPF Urine RBC (Auto) (0-2) /HPF U Epithel Cells (Auto) (FEW) /HPF Urine Bacteria (Auto) (NEGATIVE) /HPF Other Casts (Auto) (NEGATIVE) /LPF Urine Mucus (Auto) (NEGATIVE) /HPF Urine Culture Reflexed (NO) Urine Glucose (NEGATIVE) mg/dL Urine Opiates Level (NEGATIVE) Ur Methadone (NEGATIVE) Urine Barbiturates (NEGATIVE) Ur Phencyclidine (PCP) (NEGATIVE) Urine Amphetamine (NEGATIVE) U Benzodiazepine Level (NEGATIVE) Urine Cocaine (NEGATIVE) Urine Marijuana (THC) (NEGATIVE) Influenza Type A Ag (NEGATIVE) Influenza Type B Ag (NEGATIVE) RSV (PCR) (Negative) - Progress Progress: improved Air Movement: fair Blood Culture(s) Obtained: No Antibiotics given: No Discussed with : Mainor Will see patient in: hospital (observation) - Departure Departure Disposition: Observation Clinical Impression: Bronchospasm, acute Condition: Fair Critical Care Time: No Referrals: JOANNE BAL MD [Primary Care Provider] - Plan of Treatment: plan is to admit the patient on observation overnight to the care of Dr. Bal
[2019-08-08] MEDS ORDERED: PROVENTIL 2.5 MG/3 ML NEB IH ONE ×2 (00:09→00:28)
[2019-08-08] MEDS: Sodium Chloride 0.9% 1000 ML 1,000 ML IV SCH ×2 (03:04→21:23)
[2019-08-08 06:39] LABS: Hematocrit 40.3 % (35-47); Hemoglobin 13.5 gm/dl (12.0-16.0); Mean Cell Volume 90.2 fl (78-100); Mean Corpuscular Hemoglobin 30.2 pg (26-32); Mean Corpuscular Hgb Concent. 33.5 g/dl (32-36); Platelet Count 464 K/mm3 (150-450); Red Blood Count 4.47 M/mm3 (4.1-5.4); Red Cell Distribution Width 16.4 % (11.5-14.0); White Blood Count 7.2 K/mm3 (4.0-10.5)
[2019-08-08] MEDS ORDERED: DUONEB 0.5-3 MG/3 ml Neb IH ONE (06:58)
[2019-08-08] MEDS: DUONEB 0.5-3 MG/3 ml Neb IH SCH ×2 (07:00→23:44)
--- NOTE | 2019-08-08 09:17 | PCM.HP ---
History of Present Illness - Chief Complaint Chief Complaint: c/o shortness of breath History of Present Illness: is a 24 year old female.pt states she has been coughing and sometimes feeling like she cant catch her breath intermittently for the last 3 days. - Review of Systems Constitutional: No Fever, No Chills Eyes: No Symptoms Ears, Nose, & Throat: No Symptoms Respiratory: Short Of Breath, No Cough Cardiac: No Chest Pain, No Edema, No Syncope Abdominal/Gastrointestinal: No Abdominal Pain, No Nausea, No Vomiting, No Diarrhea Genitourinary Symptoms: No Dysuria Musculoskeletal: No Back Pain, No Neck Pain Skin: No Rash Neurological: No Dizziness, No Focal Weakness, No Sensory Changes Psychological: No Symptoms Endocrine: No Symptoms Hematologic/Lymphatic: No Symptoms Immunological/Allergic: No Symptoms Medications & Allergies Home Medications: Home Medication List No Reportable Medications [No Reported Medications] 08/07/19 [History Confirmed 08/07/19] Allergies/Adverse Reactions: Allergies Allergy/AdvReac Type Severity Reaction Status Date / Time Penicillins Allergy Severe Hives Verified 08/07/19 21:32 - Past Medical History Past Medical History: Yes Neurological History: No Pertinent History ENT History: No Pertinent History Cardiac History: Hypertension Respiratory History: No Pertinent History Endocrine Medical History: No Pertinent History Musculoskelatal History: Arthritis GI Medical History: Colitis, Crohns Disease, GERD History: Other Pyscho-Social History: Anxiety, Depression Reproductive Disorders: No Pertinent History Comment: PAST DX OF STAGE I KIDNEY FAILURE. 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 - Social History Smoking Status: Unknown if ever smoked Exposure to second hand smoke: Yes Alcohol: None Drug Use: none - Physical Exam Vital Signs: Vital Signs - 24 hr Temp Pulse Resp BP Pulse Ox 08/08/19 08:00 98.1 F 113 H 18 181/112 92 L 08/08/19 04:00 98.4 F 89 20 182/111 91 L 08/08/19 01:14 EST 97.6 F 107 H 18 166/110 92 L 08/08/19 00:54 103 H 20 97 08/08/19 00:11 82 20 180/108 97 08/07/19 23:41 74 20 198/124 97 08/07/19 23:30 97 08/07/19 22:10 74 18 205/125 97 08/07/19 21:25 83 26 H 96 08/07/19 20:56 97.8 F 97 H 20 208/136 95 Oxygen-Last 24 hours O2 Percentage 2 Liters = 28% Oxygen Flowrate (L/min)-RT 2 Oxygen Flowrate (L/min)-RT 2 General Appearance: no apparent distress, alert Neurologic Exam: alert, oriented x 3, cooperative, normal mood/affect, nml cerebellar function, nml station & gait, sensation nml, No motor deficits Eye Exam: PERRL/EOMI, eyes nml inspection Ears, Nose, Throat Exam: normal ENT inspection, TMs normal, pharynx normal, moist mucous membranes Neck Exam: normal inspection, non-tender, supple, full range of motion Respiratory Exam: normal breath sounds, diminished breath sounds, prolonged expirations, crackles/rales, rhonchi, wheezing, No respiratory distress Cardiovascular Exam: regular rate/rhythm, normal heart sounds, normal peripheral pulses Gastrointestinal/Abdomen Exam: soft, normal bowel sounds, No tenderness, No mass Back Exam: normal inspection, normal range of motion, No CVA tenderness, No vertebral tenderness Extremity Exam: normal inspection, normal range of motion, pelvis stable Skin Exam: normal color, warm, dry, No rash Lymphatic Exam: No adenopathy Results - Labs Lab/Micro Results: Lab Results-Last 24 Hours 08/07/19 08/07/19 08/07/19 Range/Units 21:00 21:24 21:24 WBC 10.2 (4.0-10.5) K/mm3 RBC 4.45 (4.1-5.4) M/mm3 Hgb 13.5 (12.0-16.0) gm/dl Hct 40.7 (35-47) % MCV 91.5 (78-100) fl MCH 30.3 (26-32) pg MCHC 33.2 (32-36) g/dl RDW 16.2 H (11.5-14.0) % Plt Count 468 H (150-450) K/mm3 MPV 9.8 H (6-9.5) fl Gran % 51.5 (36.0-66.0) % Eos # (Auto) 0.62 H (0-0.5) Absolute Lymphs (auto) 3.32 (1.0-4.6) Absolute Monos (auto) 0.95 (0.0-1.3) Lymphocytes % 32.5 (24.0-44.0) % Monocytes % 9.3 (0.0-12.0) % Eosinophils % 6.1 H (0.00-5.0) % Basophils % 0.6 (0.0-0.4) % Absolute Granulocytes 5.27 (1.4-6.9) Basophils # 0.06 (0-0.4) D-Dimer (215-500) ng/mL Sodium 139 (137-145) mmol/L Potassium 3.8 (3.5-5.1) mmol/L Chloride 99 (98-107) mmol/L Carbon Dioxide 31 H (22-30) mmol/L Anion Gap 12.7 (5-15) MEQ/L BUN 22 H (7-17) mg/dL Creatinine 1.25 H (0.52-1.04) mg/dL Estimated GFR 55.1 ML/MIN Glucose 128 H (74-106) mg/dL Calcium 9.3 (8.4-10.2) mg/dL Total Bilirubin 0.30 (0.2-1.3) mg/dL AST 23 (14-36) U/L ALT 14 (0-35) U/L Alkaline Phosphatase 60 (38-126) U/L Troponin I < 0.012 (0.000-0.034) ng/mL NT-Pro-B Natriuret Pep 1680 H (0-450) pg/mL Serum Total Protein 7.4 (6.3-8.2) g/dL Albumin 4.0 (3.5-5.0) g/dL Urine Color (YELLOW) Urine Appearance (CLEAR) Urine pH (5-6) Ur Specific [place] (1.005-1.025) Urine Protein (Negative) Urine Ketones (NEGATIVE) Urine Blood (0-5) Hiram/ul Urine Nitrite (NEGATIVE) Urine Bilirubin (NEGATIVE) Urine Urobilinogen (0-1) mg/dL Ur Leukocyte Esterase (NEGATIVE) Urine WBC (Auto) (0-5) /HPF Urine RBC (Auto) (0-2) /HPF U Epithel Cells (Auto) (FEW) /HPF Urine Bacteria (Auto) (NEGATIVE) /HPF Other Casts (Auto) (NEGATIVE) /LPF Urine Mucus (Auto) (NEGATIVE) /HPF Urine Culture Reflexed (NO) Urine Glucose (NEGATIVE) mg/dL Urine Opiates Level (NEGATIVE) Ur Methadone (NEGATIVE) Urine Barbiturates (NEGATIVE) Ur Phencyclidine (PCP) (NEGATIVE) Urine Amphetamine (NEGATIVE) U Benzodiazepine Level (NEGATIVE) Urine Cocaine (NEGATIVE) Urine Marijuana (THC) (NEGATIVE) Influenza Type A Ag (NEGATIVE) Influenza Type B Ag (NEGATIVE) RSV (PCR) (Negative) 08/07/19 08/07/19 08/07/19 Range/Units 21:24 21:24 22:00 WBC (4.0-10.5) K/mm3 RBC (4.1-5.4) M/mm3 Hgb (12.0-16.0) gm/dl Hct (35-47) % MCV (78-100) fl MCH (26-32) pg MCHC (32-36) g/dl RDW (11.5-14.0) % Plt Count (150-450) K/mm3 MPV (6-9.5) fl Gran % (36.0-66.0) % Eos # (Auto) (0-0.5) Absolute Lymphs (auto) (1.0-4.6) Absolute Monos (auto) (0.0-1.3) Lymphocytes % (24.0-44.0) % Monocytes % (0.0-12.0) % Eosinophils % (0.00-5.0) % Basophils % (0.0-0.4) % Absolute Granulocytes (1.4-6.9) Basophils # (0-0.4) D-Dimer 227 (215-500) ng/mL Sodium (137-145) mmol/L Potassium (3.5-5.1) mmol/L Chloride (98-107) mmol/L Carbon Dioxide (22-30) mmol/L Anion Gap (5-15) MEQ/L BUN (7-17) mg/dL Creatinine (0.52-1.04) mg/dL Estimated GFR ML/MIN Glucose (74-106) mg/dL Calcium (8.4-10.2) mg/dL Total Bilirubin (0.2-1.3) mg/dL AST (14-36) U/L ALT (0-35) U/L Alkaline Phosphatase (38-126) U/L Troponin I (0.000-0.034) ng/mL NT-Pro-B Natriuret Pep (0-450) pg/mL Serum Total Protein (6.3-8.2) g/dL Albumin (3.5-5.0) g/dL Urine Color (YELLOW) Urine Appearance (CLEAR) Urine pH (5-6) Ur Specific [place] (1.005-1.025) Urine Protein (Negative) Urine Ketones (NEGATIVE) Urine Blood (0-5) Hiram/ul Urine Nitrite (NEGATIVE) Urine Bilirubin (NEGATIVE) Urine Urobilinogen (0-1) mg/dL Ur Leukocyte Esterase (NEGATIVE) Urine WBC (Auto) (0-5) /HPF Urine RBC (Auto) (0-2) /HPF U Epithel Cells (Auto) (FEW) /HPF Urine Bacteria (Auto) (NEGATIVE) /HPF Other Casts (Auto) (NEGATIVE) /LPF Urine Mucus (Auto) (NEGATIVE) /HPF Urine Culture Reflexed (NO) Urine Glucose (NEGATIVE) mg/dL Urine Opiates Level POSITIVE (NEGATIVE) Ur Methadone NEGATIVE (NEGATIVE) Urine Barbiturates NEGATIVE (NEGATIVE) Ur Phencyclidine (PCP) NEGATIVE (NEGATIVE) Urine Amphetamine NEGATIVE (NEGATIVE) U Benzodiazepine Level NEGATIVE (NEGATIVE) Urine Cocaine NEGATIVE (NEGATIVE) Urine Marijuana (THC) NEGATIVE (NEGATIVE) Influenza Type A Ag NEGATIVE (NEGATIVE) Influenza Type B Ag NEGATIVE (NEGATIVE) RSV (PCR) NEGATIVE (Negative) 08/07/19 08/08/19 Range/Units 22:24 06:15 WBC 7.2 (4.0-10.5) K/mm3 RBC 4.47 (4.1-5.4) M/mm3 Hgb 13.5 (12.0-16.0) gm/dl Hct 40.3 (35-47) % MCV 90.2 (78-100) fl MCH 30.2 (26-32) pg MCHC 33.5 (32-36) g/dl RDW 16.4 H (11.5-14.0) % Plt Count 464 H (150-450) K/mm3 MPV 10.0 H (6-9.5) fl Gran % (36.0-66.0) % Eos # (Auto) (0-0.5) Absolute Lymphs (auto) (1.0-4.6) Absolute Monos (auto) (0.0-1.3) Lymphocytes % (24.0-44.0) % Monocytes % (0.0-12.0) % Eosinophils % (0.00-5.0) % Basophils % (0.0-0.4) % Absolute Granulocytes (1.4-6.9) Basophils # (0-0.4) D-Dimer (215-500) ng/mL Sodium (137-145) mmol/L Potassium (3.5-5.1) mmol/L Chloride (98-107) mmol/L Carbon Dioxide (22-30) mmol/L Anion Gap (5-15) MEQ/L BUN (7-17) mg/dL Creatinine (0.52-1.04) mg/dL Estimated GFR ML/MIN Glucose (74-106) mg/dL Calcium (8.4-10.2) mg/dL Total Bilirubin (0.2-1.3) mg/dL AST (14-36) U/L ALT (0-35) U/L Alkaline Phosphatase (38-126) U/L Troponin I (0.000-0.034) ng/mL NT-Pro-B Natriuret Pep (0-450) pg/mL Serum Total Protein (6.3-8.2) g/dL Albumin (3.5-5.0) g/dL Urine Color YELLOW (YELLOW) Urine Appearance SLIGHTLY CLOUDY (CLEAR) Urine pH 5.0 (5-6) Ur Specific [place] 1.028 (1.005-1.025) Urine Protein >=500 (Negative) Urine Ketones NEGATIVE (NEGATIVE) Urine Blood NEGATIVE (0-5) Hiram/ul Urine Nitrite NEGATIVE (NEGATIVE) Urine Bilirubin NEGATIVE (NEGATIVE) Urine Urobilinogen NEGATIVE (0-1) mg/dL Ur Leukocyte Esterase NEGATIVE (NEGATIVE) Urine WBC (Auto) 0-2 (0-5) /HPF Urine RBC (Auto) 3-5 (0-2) /HPF U Epithel Cells (Auto) RARE (FEW) /HPF Urine Bacteria (Auto) NONE SEEN (NEGATIVE) /HPF Other Casts (Auto) NEGATIVE (NEGATIVE) /LPF Urine Mucus (Auto) SLIGHT (NEGATIVE) /HPF Urine Culture Reflexed NO (NO) Urine Glucose NEGATIVE (NEGATIVE) mg/dL Urine Opiates Level (NEGATIVE) Ur Methadone (NEGATIVE) Urine Barbiturates (NEGATIVE) Ur Phencyclidine (PCP) (NEGATIVE) Urine Amphetamine (NEGATIVE) U Benzodiazepine Level (NEGATIVE) Urine Cocaine (NEGATIVE) Urine Marijuana (THC) (NEGATIVE) Influenza Type A Ag (NEGATIVE) Influenza Type B Ag (NEGATIVE) RSV (PCR) (Negative) - Radiology Impressions Radiology Exams & Impressions: Radiology Procedures Category Date Time Status CHEST 1 VIEW (PORTABLE) Stat Exams 08/07/19 21:08 Taken - Other Procedures and Tests Respiratory Therapy 08/07/19 21:17 Respiratory Therapy Assessment DAILY Assessment/Plan (1) Bronchospasm, acute Current Visit: Yes Status: Acute Assessment & Plan: Chief Complaint Diagnosis bronchospasms Allergies Allergy/AdvReac Type Severity Reaction Status Date / Time Penicillins Allergy Severe Hives Verified 08/07/19 21:32 Vital Signs (Last 24 hours) Temp Pulse Resp BP Pulse Ox 08/08/19 08:00 98.1 F 113 H 18 181/112 92 L 08/08/19 04:00 98.4 F 89 20 182/111 91 L 08/08/19 01:14 EST 97.6 F 107 H 18 166/110 92 L 08/08/19 00:54 103 H 20 97 08/08/19 00:11 82 20 180/108 97 08/07/19 23:41 74 20 198/124 97 08/07/19 23:30 97 08/07/19 22:10 74 18 205/125 97 08/07/19 21:25 83 26 H 96 08/07/19 20:56 97.8 F 97 H 20 208/136 95 Home Medications Medication Instructions Recorded Confirmed Last Taken Type No Reportable Medications [No 08/07/19 08/07/19 Unknown History Reported Medications] Current Medications Generic Name Dose Route Start Last Admin Trade Name Freq PRN Reason Stop Dose Admin Sodium Chloride 1,000 mls @ 50 mls/hr 08/07/19 23:45 08/08/19 03:04 Sodium Chloride 0.9% 1000 Ml IV 09/06/19 23:44 50 mls/hr .Q20H RAMIREZ Administration Azithromycin 500 mg in 250 mls @ 250 mls/hr 08/08/19 22:00 Zithromax 500 Mg/ 250 Ml Nacl Premix IV 09/07/19 09:59 QPM RAMIREZ Prednisone 50 mg 08/08/19 10:00 Deltasone 20 Mg PO 09/07/19 09:59 DAILY RAMIREZ Discontinued Medications Generic Name Dose Route Start Last Admin Trade Name Zach PRN Reason Stop Dose Admin Albuterol Sulfate 2.5 mg 08/08/19 00:09 08/08/19 00:52 Proventil 2.5 Mg/3 Ml Neb IH 08/08/19 00:10 2.5 mg STAT ONE Administration Albuterol Sulfate Confirm 08/08/19 00:28 Proventil 2.5 Mg/3 Ml Neb Administered 08/08/19 00:29 Dose 2.5 mg IH .STK-MED ONE Albuterol/Ipratropium 3 ml 08/07/19 21:08 08/07/19 21:18 Duoneb 0.5-3 Mg/3 Ml Neb IH 08/07/19 21:09 3 ml STAT ONE Administration Albuterol/Ipratropium Confirm 08/07/19 21:17 Duoneb 0.5-3 Mg/3 Ml Neb Administered 08/07/19 21:18 Dose 3 ml IH .STK-MED ONE Albuterol/Ipratropium Confirm 08/08/19 06:58 Duoneb 0.5-3 Mg/3 Ml Neb Administered 08/08/19 06:59 Dose 3 ml IH .STK-MED ONE Furosemide 40 mg 08/07/19 21:57 08/07/19 22:02 Lasix 40 Mg/4 Ml IV 08/07/19 21:58 40 mg STAT ONE Administration Furosemide Confirm 08/07/19 21:59 Lasix 40 Mg/4 Ml Administered 08/07/19 22:00 Dose 40 mg .ROUTE .STK-MED ONE Hydralazine HCl 20 mg 08/07/19 23:18 08/07/19 23:26 Apresoline 20 Mg/Ml Inj IV 08/07/19 23:19 20 mg STAT ONE Administration Hydralazine HCl Confirm 08/07/19 23:24 Apresoline 20 Mg/Ml Inj Administered 08/07/19 23:25 Dose 20 mg .ROUTE .STK-MED ONE Sodium Chloride 1,000 mls @ 999 mls/hr 08/07/19 21:08 08/07/19 22:26 Sodium Chloride 0.9% 1000 Ml IV 08/07/19 22:08 Infused .Q1H1M STA Infusion Sodium Chloride Confirm 08/07/19 21:21 Sodium Chloride 0.9% 1000 Ml Administered 08/07/19 21:22 Dose 1,000 mls @ ud .ROUTE .STK-MED ONE Azithromycin 500 mg in 250 mls @ 250 mls/hr 08/08/19 10:00 08/08/19 00:01 Zithromax 500 Mg/ 250 Ml Nacl Premix IV 09/07/19 09:59 250 mls/hr Q24H10 RAMIREZ Administration Methylprednisolone Sodium Succinate 125 mg 08/07/19 21:08 08/07/19 21:25 Solu-Medrol 125 Mg IV 08/07/19 21:09 125 mg STAT ONE Administration Methylprednisolone Sodium Succinate Confirm 08/07/19 21:20 Solu-Medrol 125 Mg Administered 08/07/19 21:21 Dose 125 mg .ROUTE .STK-MED ONE Intake & Output (Last 24 hours) 08/05/19 08/06/19 08/07/19 08/08/19 11:59 11:59 11:59 10:59 Output Total 400 Balance -400 Weight 82.2 kg Microbiology Results (Last 24 hours) 08/07/19 22:23 Sputum - Expectorant Gram Stain - Pending 08/07/19 22:23 Sputum - Expectorant Sputum Culture - Pending Laboratory Results (Last 24 hours) 08/08/19 08/07/19 08/07/19 06:15 22:24 22:00 WBC 7.2 RBC 4.47 Hgb 13.5 Hct 40.3 MCV 90.2 MCH 30.2 MCHC 33.5 RDW 16.4 H Plt Count 464 H MPV 10.0 H Gran % Eos # (Auto) Absolute Lymphs (auto) Absolute Monos (auto) Lymphocytes % Monocytes % Eosinophils % Basophils % Absolute Granulocytes Basophils # D-Dimer Sodium Potassium Chloride Carbon Dioxide Anion Gap BUN Creatinine Estimated GFR Glucose Calcium Total Bilirubin AST ALT Alkaline Phosphatase Troponin I NT-Pro-B Natriuret Pep Serum Total Protein Albumin Urine Color YELLOW Urine Appearance SLIGHTLY CLOUDY Urine pH 5.0 Ur Specific [place] 1.028 Urine Protein >=500 Urine Ketones NEGATIVE Urine Blood NEGATIVE Urine Nitrite NEGATIVE Urine Bilirubin NEGATIVE Urine Urobilinogen NEGATIVE Ur Leukocyte Esterase NEGATIVE Urine WBC (Auto) 0-2 Urine RBC (Auto) 3-5 U Epithel Cells (Auto) RARE Urine Bacteria (Auto) NONE SEEN Other Casts (Auto) NEGATIVE Urine Mucus (Auto) SLIGHT Urine Culture Reflexed NO Urine Glucose NEGATIVE Urine Opiates Level POSITIVE Ur Methadone NEGATIVE Urine Barbiturates NEGATIVE Ur Phencyclidine (PCP) NEGATIVE Urine Amphetamine NEGATIVE U Benzodiazepine Level NEGATIVE Urine Cocaine NEGATIVE Urine Marijuana (THC) NEGATIVE Influenza Type A Ag Influenza Type B Ag RSV (PCR) 08/07/19 08/07/19 08/07/19 21:24 21:24 21:24 WBC RBC Hgb Hct MCV MCH MCHC RDW Plt Count MPV Gran % Eos # (Auto) Absolute Lymphs (auto) Absolute Monos (auto) Lymphocytes % Monocytes % Eosinophils % Basophils % Absolute Granulocytes Basophils # D-Dimer 227 Sodium 139 Potassium 3.8 Chloride 99 Carbon Dioxide 31 H Anion Gap 12.7 BUN 22 H Creatinine 1.25 H Estimated GFR 55.1 Glucose 128 H Calcium 9.3 Total Bilirubin 0.30 AST 23 ALT 14 Alkaline Phosphatase 60 Troponin I NT-Pro-B Natriuret Pep 1680 H Serum Total Protein 7.4 Albumin 4.0 Urine Color Urine Appearance Urine pH Ur Specific [place] Urine Protein Urine Ketones Urine Blood Urine Nitrite Urine Bilirubin Urine Urobilinogen Ur Leukocyte Esterase Urine WBC (Auto) Urine RBC (Auto) U Epithel Cells (Auto) Urine Bacteria (Auto) Other Casts (Auto) Urine Mucus (Auto) Urine Culture Reflexed Urine Glucose Urine Opiates Level Ur Methadone Urine Barbiturates Ur Phencyclidine (PCP) Urine Amphetamine U Benzodiazepine Level Urine Cocaine Urine Marijuana (THC) Influenza Type A Ag NEGATIVE Influenza Type B Ag NEGATIVE RSV (PCR) NEGATIVE 08/07/19 08/07/19 21:24 21:00 WBC 10.2 RBC 4.45 Hgb 13.5 Hct 40.7 MCV 91.5 MCH 30.3 MCHC 33.2 RDW 16.2 H Plt Count 468 H MPV 9.8 H Gran % 51.5 Eos # (Auto) 0.62 H Absolute Lymphs (auto) 3.32 Absolute Monos (auto) 0.95 Lymphocytes % 32.5 Monocytes % 9.3 Eosinophils % 6.1 H Basophils % 0.6 Absolute Granulocytes 5.27 Basophils # 0.06 D-Dimer Sodium Potassium Chloride Carbon Dioxide Anion Gap BUN Creatinine Estimated GFR Glucose Calcium Total Bilirubin AST ALT Alkaline Phosphatase Troponin I < 0.012 NT-Pro-B Natriuret Pep Serum Total Protein Albumin Urine Color Urine Appearance Urine pH Ur Specific [place] Urine Protein Urine Ketones Urine Blood Urine Nitrite Urine Bilirubin Urine Urobilinogen Ur Leukocyte Esterase Urine WBC (Auto) Urine RBC (Auto) U Epithel Cells (Auto) Urine Bacteria (Auto) Other Casts (Auto) Urine Mucus (Auto) Urine Culture Reflexed Urine Glucose Urine Opiates Level Ur Methadone Urine Barbiturates Ur Phencyclidine (PCP) Urine Amphetamine U Benzodiazepine Level Urine Cocaine Urine Marijuana (THC) Influenza Type A Ag Influenza Type B Ag RSV (PCR) Orders (Last 24 hours) Category Date Time Status Bedrest with BRP/BSC ROUTINE Activity 08/07/19 23:31 Active Code Status Order ROUTINE Care 08/07/19 23:31 Active IV Care Q6H Care 08/07/19 23:31 Completed IV Insertion STAT Care 08/07/19 23:[address] in Observation ROUTINE Care 08/07/19 23:33 Active Brayden Brooks ROUTINE Care 08/07/19 23:31 Active Weight,Daily 0600 Care 08/07/19 23:31 Active Topper Packer/Discharge Plan Cons 08/08/19 01:45 Active Regular Diet Diet 08/08/19 Breakfast Active CHEST 1 VIEW (PORTABLE) Stat Exams 08/07/19 21:08 Taken CBC AM.LAB Lab 08/08/19 06:15 Completed CBC W DIFF Stat Lab 08/07/19 21:24 Completed CMP Stat Lab 08/07/19 21:24 Completed D-DIMER QUANTITATION Stat Lab 08/07/19 21:24 Completed NT PRO BNP Stat Lab 08/07/19 21:24 Completed Respiratory Panel Stat Lab 08/07/19 21:24 Completed Sputum Culture [CULTURE,SPUTUM] Stat Lab 08/07/19 22:23 Received TROPONIN Q3H Lab 08/07/19 21:00 Completed UA W/RFX UR CULTURE Stat Lab 08/07/19 22:24 Completed Urine Triage Profile Stat Lab 08/07/19 22:00 Completed Albuterol 2.5 mg/3 ml Neb [Proventil 2.5 mg/3 ml Neb Med 08/08/19 00:28 Discontinued ] 2.5 mg IH .STK-MED ONE Albuterol 2.5 mg/3 ml Neb [Proventil 2.5 mg/3 ml Neb Med 08/08/19 00:09 Discontinued ] 2.5 mg IH STAT ONE Albuterol/Ipratropium 3ml Neb* [DUONEB 0.5-3 MG/3 ml Med 08/07/19 21:17 Discontinued Neb] 3 ml IH .STK-MED ONE Albuterol/Ipratropium 3ml Neb* [DUONEB 0.5-3 MG/3 ml Med 08/08/19 06:58 Discontinued Neb] 3 ml IH .STK-MED ONE Albuterol/Ipratropium 3ml Neb* [DUONEB 0.5-3 MG/3 ml Med 08/07/19 21:08 Discontinued Neb] 3 ml IH STAT ONE Azithromycin 500 mg/250 ml [Zithromax 500 MG/ 250 ML Med 08/08/19 10:00 Discontinued NaCl Premix] 500 mg in 250 ml IV Q24H10 Azithromycin 500 mg/250 ml [Zithromax 500 MG/ 250 ML Med 08/08/19 22:00 Active NaCl Premix] 500 mg in 250 ml IV QPM Furosemide 40 mg/4 ml [Lasix 40 MG/4 ML] Med 08/07/19 21:59 Discontinued 40 mg .ROUTE .STK-MED ONE Furosemide 40 mg/4 ml [Lasix 40 MG/4 ML] Med 08/07/19 21:57 Discontinued 40 mg IV STAT ONE HydrALAzine HCL 20 MG INJ [Apresoline 20 mg/ml Inj Med 08/07/19 23:24 Discontinued *] 20 mg .ROUTE .STK-MED ONE HydrALAzine HCL 20 MG INJ [Apresoline 20 mg/ml Inj Med 08/07/19 23:18 Discontinued *] 20 mg IV STAT ONE Methylprednis Sod Succ 125 mg* [solu-MEDROL 125 MG] Med 08/07/19 21:20 Discontinued 125 mg .ROUTE .STK-MED ONE Methylprednis Sod Succ 125 mg* [solu-MEDROL 125 MG] Med 08/07/19 21:08 Discontinued 125 mg IV STAT ONE NaCl 0.9% 1000 ml [Sodium Chloride 0.9% 1000 ML] 1,000 Med 08/07/19 21:21 Discontinued ml .ROUTE UD NaCl 0.9% 1000 ml [Sodium Chloride 0.9% 1000 ML] 1,000 Med 08/07/19 23:45 Active ml IV 50 mls/hr NaCl 0.9% 1000 ml [Sodium Chloride 0.9% 1000 ML] 1,000 Med 08/07/19 21:08 Discontinued ml IV 999 mls/hr Prednisone 20 mg [Deltasone 20 mg] Med 08/08/19 10:00 Active 50 mg PO DAILY Respiratory Therapy Assessment DAILY RT 08/07/19 21:17 Active (2) Acute renal failure Current Visit: Yes Status: Acute Qualifiers: Acute renal failure type: unspecified (3) Hypertension Current Visit: Yes Status: Chronic Qualifiers: Hypertension type: essential hypertension Code(s): I10 - ESSENTIAL (PRIMARY) HYPERTENSION
[2019-08-08] MEDS: DELTASONE 20 MG PO SCH (09:34)
--- NOTE | 2019-08-08 09:54 | XRAY ---
Indication: Wheezing and cough. Comparison: July 15, 2019. Portable chest again demonstrates normal heart, lungs, and bony thorax.
[2019-08-08] MEDS ORDERED: Zithromax 500 MG/ 250 ML NaCl Premix 500 MG/250 ML IVPB IV SCH ×2 (10:00→22:00)
[2019-08-08] MEDS ORDERED: MEDICATION INTERVENTION MC SCH (11:00)
[2019-08-08] MEDS ORDERED: Bystolic 5 MG PO SCH (11:00)
[2019-08-08] MEDS: Norco 10/325 MG Tablet PO PRN ×4 (11:01→23:53)
[2019-08-08] MEDS: ZOLOFT 50 MG TABLET PO SCH (11:06)
[2019-08-08] MEDS: Lyrica 50MG PO SCH ×2 (11:06→21:22)
[2019-08-08] MEDS ORDERED: Sodium Chloride 3 ML UD NEBULES IH ONE ×2 (12:15→15:30)
[2019-08-08] MEDS ORDERED: PROVENTIL Solution 2.5 MG/0.5 ML IH ONE ×2 (12:16→15:30)
[2019-08-08] MEDS ORDERED: ZOFRAN ODT 4 MG PO PRN (17:02)
[2019-08-08] MEDS: Catapres 0.1 MG PO PRN (17:10)
[2019-08-08] MEDS: Ambien 10 MG PO PRN (21:22)
[2019-08-08] MEDS ORDERED: NON-FORMULARY ITEM (Budesonide/Formoterol Fumarate [Symbicort 160-4.5 Mcg Inhaler] 2 PUFF) IH SCH (22:00)
[2019-08-08] MEDS: Trandate 100 MG PO SCH (23:17)
[2019-08-08] MEDS: Advair Hfa 230/21 Mcg COMMON CANISTER IH SCH (23:44)
[2019-08-09] MEDS ORDERED: DUONEB 0.5-3 MG/3 ml Neb IH ONE ×2 (03:04→07:15)
[2019-08-09] MEDS: DUONEB 0.5-3 MG/3 ml Neb IH SCH ×6 (03:11→22:21)
[2019-08-09] MEDS: Advair Hfa 230/21 Mcg COMMON CANISTER IH SCH ×2 (07:29→22:21)
[2019-08-09] MEDS: Norco 10/325 MG Tablet PO PRN ×4 (07:34→21:03)
[2019-08-09] MEDS ORDERED: Catapres 0.1 MG ONE (08:30)
[2019-08-09] MEDS: Catapres 0.1 MG PO PRN ×2 (08:32→21:04)
[2019-08-09 08:50] LABS: Absolute Neutrophil Ct (ANC) 8.82 (1.4-6.9); BASOPHIL % 0.2 % (0.0-0.4); Basophil (Absolute #) 0.03 (0-0.4); Eosinophil % 0.1 % (0.00-5.0); Eosinophil (Absolute #) 0.01 (0-0.5); Hematocrit 36.9 % (35-47); Hemoglobin 11.9 gm/dl (12.0-16.0); Lymphocyte (Absolute #) 2.81 (1.0-4.6); Lymphocytes % 20.6 % (24.0-44.0); Mean Cell Volume 92.7 fl (78-100); Mean Corpuscular Hgb Concent. 32.2 g/dl (32-36); Mean Platelet Volume 9.8 fl (6-9.5); Monocyte (Absolute #) 1.94 (0.0-1.3); Monocytes % 14.3 % (0.0-12.0); Neutrophil % 64.8 % (36.0-66.0); Platelet Count 390 K/mm3 (150-450); Red Blood Count 3.98 M/mm3 (4.1-5.4); Red Cell Distribution Width 17.3 % (11.5-14.0); White Blood Count 13.6 K/mm3 (4.0-10.5)
[2019-08-09 09:03] LABS: ALBUMIN 3.4 g/dL (3.5-5.0); ALKALINE PHOSPHATASE 45 U/L (38-126); ANION GAP 11.8 MEQ/L (5-15); BLOOD UREA NITROGEN 26 mg/dL (7-17); CHLORIDE 103 mmol/L (98-107); Carbon Dioxide 30 mmol/L (22-30); Creatinine 1 1.11 mg/dL (0.52-1.04); Glucose 130 mg/dL (74-106); Potassium 3.6 mmol/L (3.5-5.1); SGOT/AST 16 U/L (14-36); SGPT/ALT 13 U/L (0-35); SODIUM 141 mmol/L (137-145); Total Protein 6.5 g/dL (6.3-8.2)
[2019-08-09 09:04] LABS: Mean Corpuscular Hemoglobin 29.8 pg (26-32)
[2019-08-09 09:32] LABS: Slide Review 1 YES
[2019-08-09] MEDS ORDERED: FLUZONE QUAD 2019-2020 SYRINGE IM ONE (10:00)
[2019-08-09] MEDS: Lyrica 50MG PO SCH ×2 (10:37→21:04)
[2019-08-09] MEDS: Trandate 100 MG PO SCH (10:37)
[2019-08-09] MEDS: DELTASONE 20 MG PO SCH (10:39)
[2019-08-09] MEDS: ZOLOFT 50 MG TABLET PO SCH (10:41)
--- NOTE | 2019-08-09 12:34 | PCM.NOTE ---
Date and Time: 08/09/19 1231 Subjective Assessment: still shortness of breath - Review of Systems Constitutional: No Fever, No Chills Eyes: No Symptoms Ears, Nose, & Throat: No Symptoms Respiratory: Orthopnea, Short Of Breath, Wheezing, No Cough Cardiac: No Chest Pain, No Edema, No Syncope Abdominal/Gastrointestinal: No Abdominal Pain, No Nausea, No Vomiting, No Diarrhea Genitourinary Symptoms: No Dysuria Musculoskeletal: No Back Pain, No Neck Pain Skin: No Rash Neurological: No Dizziness, No Focal Weakness, No Sensory Changes Psychological: No Symptoms Endocrine: No Symptoms Hematologic/Lymphatic: No Symptoms Immunological/Allergic: No Symptoms Objective Exam General Appearance: no apparent distress, alert Neurologic Exam: alert, oriented x 3, cooperative, normal mood/affect, nml cerebellar function, sensation nml, No motor deficits Skin Exam: normal color, warm, dry Eye Exam: PERRL, EOMI, eyes nml inspection Ears, Nose, Throat Exam: normal ENT inspection, pharynx normal, moist mucous membranes Neck Exam: normal inspection, non-tender, supple, full range of motion Respiratory Exam: rhonchi, wheezing, No respiratory distress Cardiovascular Exam: regular rate/rhythm, normal heart sounds Gastrointestinal/Abdomen Exam: soft, No tenderness, No mass Extremity Exam: normal inspection, normal range of motion Back Exam: normal inspection, normal range of motion, No CVA tenderness, No vertebral tenderness Pelvic Exam: deferred Rectal Exam: deferred OBJECTIVE DATA Vital Signs: Vital Signs - 24 hr Temp Pulse Resp BP Pulse Ox 08/09/19 12:00 98.0 F 88 18 127/65 96 08/09/19 07:47 99.0 F 104 H 18 153/96 94 L 08/09/19 07:30 93 L 08/09/19 04:00 98.5 F 87 22 125/74 92 L 08/09/19 03:11 87 22 92 L 08/09/19 00:00 97.9 F 94 H 18 125/72 93 L 08/08/19 23:44 80 17 91 L 08/08/19 19:23 98.9 F 104 H 18 135/70 94 L 08/08/19 16:00 98.3 F 111 H 18 199/121 95 08/08/19 15:30 111 H 18 95 Pain Assessment - Last Documented Pain Intensity 8 Pain Scale Used 0-10 Pain Scale Intake and Output: Intake & Output 08/07/19 08/08/19 08/09/19 08/10/19 12:59 11:59 11:59 11:59 Intake Total 2884 Output Total 1000 Balance 1884 Weight 82 kg Lab Results: Lab Results-Last 24 Hours 08/09/19 08/09/19 08/09/19 Range/Units 08:42 08:42 08:42 WBC 13.6 H (4.0-10.5) K/mm3 RBC 3.98 L (4.1-5.4) M/mm3 Hgb 11.9 L (12.0-16.0) gm/dl Hct 36.9 (35-47) % MCV 92.7 (78-100) fl MCH 29.8 (26-32) pg MCHC 32.2 (32-36) g/dl RDW 17.3 H (11.5-14.0) % Plt Count 390 (150-450) K/mm3 MPV 9.8 H (6-9.5) fl Gran % 64.8 (36.0-66.0) % Eos # (Auto) 0.01 (0-0.5) Absolute Lymphs (auto) 2.81 (1.0-4.6) Absolute Monos (auto) 1.94 H (0.0-1.3) Lymphocytes % 20.6 L (24.0-44.0) % Monocytes % 14.3 H (0.0-12.0) % Eosinophils % 0.1 (0.00-5.0) % Basophils % 0.2 (0.0-0.4) % Absolute Granulocytes 8.82 H (1.4-6.9) Basophils # 0.03 (0-0.4) D-Dimer (215-500) ng/mL Sodium 141 (137-145) mmol/L Potassium 3.6 (3.5-5.1) mmol/L Chloride 103 (98-107) mmol/L Carbon Dioxide 30 (22-30) mmol/L Anion Gap 11.8 (5-15) MEQ/L BUN 26 H (7-17) mg/dL Creatinine 1.11 H (0.52-1.04) mg/dL Estimated GFR > 60.0 ML/MIN Glucose 130 H (74-106) mg/dL Calcium 9.0 (8.4-10.2) mg/dL Total Bilirubin 0.30 (0.2-1.3) mg/dL AST 16 (14-36) U/L ALT 13 (0-35) U/L Alkaline Phosphatase 45 (38-126) U/L NT-Pro-B Natriuret Pep 740 H (0-450) pg/mL Serum Total Protein 6.5 (6.3-8.2) g/dL Albumin 3.4 L (3.5-5.0) g/dL Slides for Path Review YES 08/09/19 Range/Units 08:42 WBC (4.0-10.5) K/mm3 RBC (4.1-5.4) M/mm3 Hgb (12.0-16.0) gm/dl Hct (35-47) % MCV (78-100) fl MCH (26-32) pg MCHC (32-36) g/dl RDW (11.5-14.0) % Plt Count (150-450) K/mm3 MPV (6-9.5) fl Gran % (36.0-66.0) % Eos # (Auto) (0-0.5) Absolute Lymphs (auto) (1.0-4.6) Absolute Monos (auto) (0.0-1.3) Lymphocytes % (24.0-44.0) % Monocytes % (0.0-12.0) % Eosinophils % (0.00-5.0) % Basophils % (0.0-0.4) % Absolute Granulocytes (1.4-6.9) Basophils # (0-0.4) D-Dimer 273 (215-500) ng/mL Sodium (137-145) mmol/L Potassium (3.5-5.1) mmol/L Chloride (98-107) mmol/L Carbon Dioxide (22-30) mmol/L Anion Gap (5-15) MEQ/L BUN (7-17) mg/dL Creatinine (0.52-1.04) mg/dL Estimated GFR ML/MIN Glucose (74-106) mg/dL Calcium (8.4-10.2) mg/dL Total Bilirubin (0.2-1.3) mg/dL AST (14-36) U/L ALT (0-35) U/L Alkaline Phosphatase (38-126) U/L NT-Pro-B Natriuret Pep (0-450) pg/mL Serum Total Protein (6.3-8.2) g/dL Albumin (3.5-5.0) g/dL Slides for Path Review Radiology Exams: Radiology Procedures Category Date Time Status CHEST 1 VIEW (PORTABLE) Stat Exams 08/07/19 21:08 Completed Assessment/Plan (1) Bronchospasm, acute Current Visit: Yes Status: Acute (2) Acute renal failure Current Visit: Yes Status: Acute Qualifiers: Acute renal failure type: unspecified (3) Hypertension Current Visit: Yes Status: Chronic Qualifiers: Hypertension type: essential hypertension Code(s): I10 - ESSENTIAL (PRIMARY) HYPERTENSION (4) Asthma Current Visit: Yes Status: Acute Code(s): J45.909 - UNSPECIFIED ASTHMA, UNCOMPLICATED
[2019-08-09] MEDS: ROCEPHIN 1 Gm-D5w 50 ml Bag** 1 G/50 ML IVPB IV SCH (13:51)
[2019-08-09] MEDS ORDERED: Trandate 100 MG PO SCH (14:37)
[2019-08-09] MEDS: Ambien 10 MG PO PRN (21:04)
[2019-08-09] MEDS ORDERED: Zithromax 500 MG/ 250 ML NaCl Premix 500 MG/250 ML IVPB IV SCH (22:00)
[2019-08-09] MEDS: Sodium Chloride 0.9% 1000 ML 1,000 ML IV SCH (22:49)
[2019-08-10] MEDS: Norco 10/325 MG Tablet PO PRN ×3 (01:06→09:23)
[2019-08-10] MEDS: DUONEB 0.5-3 MG/3 ml Neb IH SCH ×3 (02:37→10:54)
[2019-08-10] MEDS: Catapres 0.1 MG PO PRN (05:00)
[2019-08-10] MEDS: Advair Hfa 230/21 Mcg COMMON CANISTER IH SCH (06:54)
--- NOTE | 2019-08-10 07:23 | PCM.NOTE ---
Date and Time: 08/10/19720 Subjective Assessment: doing ok - Review of Systems Constitutional: No Fever, No Chills Eyes: No Symptoms Ears, Nose, & Throat: No Symptoms Respiratory: No Cough, No Short Of Breath Cardiac: No Chest Pain, No Edema, No Syncope Abdominal/Gastrointestinal: No Abdominal Pain, No Nausea, No Vomiting, No Diarrhea Genitourinary Symptoms: No Dysuria Musculoskeletal: No Back Pain, No Neck Pain Skin: No Rash Neurological: No Dizziness, No Focal Weakness, No Sensory Changes Psychological: No Symptoms Endocrine: No Symptoms Hematologic/Lymphatic: No Symptoms Immunological/Allergic: No Symptoms Objective Exam General Appearance: no apparent distress, alert Neurologic Exam: alert, oriented x 3, cooperative, normal mood/affect, nml cerebellar function, sensation nml, No motor deficits Skin Exam: normal color, warm, dry Eye Exam: PERRL, EOMI, eyes nml inspection Ears, Nose, Throat Exam: normal ENT inspection, pharynx normal, moist mucous membranes Neck Exam: normal inspection, non-tender, supple, full range of motion Respiratory Exam: normal breath sounds, lungs clear, No respiratory distress Cardiovascular Exam: regular rate/rhythm, normal heart sounds Gastrointestinal/Abdomen Exam: soft, No tenderness, No mass Extremity Exam: normal inspection, normal range of motion Back Exam: normal inspection, normal range of motion, No CVA tenderness, No vertebral tenderness Pelvic Exam: deferred Rectal Exam: deferred OBJECTIVE DATA Vital Signs: Vital Signs - 24 hr Temp Pulse Resp BP Pulse Ox 08/10/19 06:55 80 20 96 08/10/19 04:00 87 16 176/112 97 08/10/19 02:40 90 20 95 08/10/19 00:00 98.6 F 100 H 16 143/93 94 L 08/09/19 22:19 110 H 20 92 L 08/09/19 20:00 98.6 F 87 20 181/104 95 08/09/19 16:15 98.7 F 77 20 148/93 96 08/09/19 16:09 84 18 94 L 08/09/19 12:00 98.0 F 88 18 127/65 96 08/09/19 07:47 99.0 F 104 H 18 153/96 94 L 08/09/19 07:30 93 L Pain Assessment - Last Documented Pain Intensity 8 Pain Scale Used 0-10 Pain Scale Intake and Output: Intake & Output 11/02/19 11/03/19 11/04/19 11/05/19 12:59 11:59 11:59 11:59 Intake Total 2884 3207 Output Total 1000 400 Balance 0021 2807 Weight 82 kg Lab Results: Lab Results-Last 24 Hours 08/09/19 08/09/19 08/09/19 Range/Units 08:42 08:42 08:42 WBC 13.6 H (4.0-10.5) K/mm3 RBC 3.98 L (4.1-5.4) M/mm3 Hgb 11.9 L (12.0-16.0) gm/dl Hct 36.9 (35-47) % MCV 92.7 (78-100) fl MCH 29.8 (26-32) pg MCHC 32.2 (32-36) g/dl RDW 17.3 H (11.5-14.0) % Plt Count 390 (150-450) K/mm3 MPV 9.8 H (6-9.5) fl Gran % 64.8 (36.0-66.0) % Eos # (Auto) 0.01 (0-0.5) Absolute Lymphs (auto) 2.81 (1.0-4.6) Absolute Monos (auto) 1.94 H (0.0-1.3) Lymphocytes % 20.6 L (24.0-44.0) % Monocytes % 14.3 H (0.0-12.0) % Eosinophils % 0.1 (0.00-5.0) % Basophils % 0.2 (0.0-0.4) % Absolute Granulocytes 8.82 H (1.4-6.9) Basophils # 0.03 (0-0.4) D-Dimer (215-500) ng/mL Sodium 141 (137-145) mmol/L Potassium 3.6 (3.5-5.1) mmol/L Chloride 103 (98-107) mmol/L Carbon Dioxide 30 (22-30) mmol/L Anion Gap 11.8 (5-15) MEQ/L BUN 26 H (7-17) mg/dL Creatinine 1.11 H (0.52-1.04) mg/dL Estimated GFR > 60.0 ML/MIN Glucose 130 H (74-106) mg/dL Calcium 9.0 (8.4-10.2) mg/dL Total Bilirubin 0.30 (0.2-1.3) mg/dL AST 16 (14-36) U/L ALT 13 (0-35) U/L Alkaline Phosphatase 45 (38-126) U/L NT-Pro-B Natriuret Pep 740 H (0-450) pg/mL Serum Total Protein 6.5 (6.3-8.2) g/dL Albumin 3.4 L (3.5-5.0) g/dL Slides for Path Review YES 08/09/19 Range/Units 08:42 WBC (4.0-10.5) K/mm3 RBC (4.1-5.4) M/mm3 Hgb (12.0-16.0) gm/dl Hct (35-47) % MCV (78-100) fl MCH (26-32) pg MCHC (32-36) g/dl RDW (11.5-14.0) % Plt Count (150-450) K/mm3 MPV (6-9.5) fl Gran % (36.0-66.0) % Eos # (Auto) (0-0.5) Absolute Lymphs (auto) (1.0-4.6) Absolute Monos (auto) (0.0-1.3) Lymphocytes % (24.0-44.0) % Monocytes % (0.0-12.0) % Eosinophils % (0.00-5.0) % Basophils % (0.0-0.4) % Absolute Granulocytes (1.4-6.9) Basophils # (0-0.4) D-Dimer 273 (215-500) ng/mL Sodium (137-145) mmol/L Potassium (3.5-5.1) mmol/L Chloride (98-107) mmol/L Carbon Dioxide (22-30) mmol/L Anion Gap (5-15) MEQ/L BUN (7-17) mg/dL Creatinine (0.52-1.04) mg/dL Estimated GFR ML/MIN Glucose (74-106) mg/dL Calcium (8.4-10.2) mg/dL Total Bilirubin (0.2-1.3) mg/dL AST (14-36) U/L ALT (0-35) U/L Alkaline Phosphatase (38-126) U/L NT-Pro-B Natriuret Pep (0-450) pg/mL Serum Total Protein (6.3-8.2) g/dL Albumin (3.5-5.0) g/dL Slides for Path Review Multi-Disciplinary Progress Notes: Multi-Disciplinary Progress Notes 08/10/19 01:48 Respiratory Note by Yazmin Ray BREATHING TREATMENT NOT GIVEN DUE TO RT UNAVAILABLE AT THIS TIME. PATIENT SAT RIGHT UP AT 2219 AND TOOK THE NEBULIZER AND MDI TREATMENT Initialized on 08/10/19 01:48 - END OF NOTE Assessment/Plan (1) Bronchospasm, acute Current Visit: Yes Status: Acute Assessment & Plan: improved (2) Acute renal failure Current Visit: Yes Status: Resolved Qualifiers: Acute renal failure type: unspecified Qualified Code(s): N17.9 - Acute kidney failure, unspecified (3) Hypertension Current Visit: Yes Status: Chronic Qualifiers: Hypertension type: essential hypertension Qualified Code(s): I10 - Essential (primary) hypertension Assessment & Plan: increase labetalol to 400 mg po bid Code(s): I10 - ESSENTIAL (PRIMARY) HYPERTENSION (4) Asthma Current Visit: Yes Status: Acute Code(s): J45.909 - UNSPECIFIED ASTHMA, UNCOMPLICATED
[2019-08-10] MEDS ORDERED: Trandate 100 MG PO SCH (08:40)
[2019-08-10] MEDS: Lyrica 50MG PO SCH (08:55)
[2019-08-10] MEDS: ROCEPHIN 1 Gm-D5w 50 ml Bag** 1 G/50 ML IVPB IV SCH (08:55)
[2019-08-10] MEDS: DELTASONE 20 MG PO SCH (08:55)
[2019-08-10] MEDS: ZOLOFT 50 MG TABLET PO SCH (08:57)
[2019-08-10] MEDS ORDERED: DELTASONE 20 MG PO SCH (09:26)
[2019-08-10] MEDS ORDERED: MINOCYCLINE HCL PO SCH (10:00)
[2019-08-10 11:14] VITALS: BP 178/109; PULSE 84; O2SAT 97
--- NOTE | 2019-08-12 19:58 | PCM.DS ---
Discharge Summary Date of Admission: 08/08/19 00:19 Admitting Physician: JOANNE BAL Primary Care Provider: JOANNE BAL Allergies Allergies Penicillins Allergy (Severe, Verified 08/07/19 21:32) [facility] Summary - Hospital Course Hospital Course: Chief Complaint Diagnosis c/o shortness of breath Allergies Allergy/AdvReac Type Severity Reaction Status Date / Time Penicillins Allergy Severe Hives Verified 08/07/19 21:32 Home Medications Medication Instructions Recorded Confirmed Last Taken Type Budesonide/Formoterol Fumarate 2 puff IH BID 08/08/19 08/08/19 Unknown History [Symbicort 160-4.5 Mcg Inhaler] Labetalol HCl 100 mg [Trandate 400 mg PO BID 30 Days #60 tablet 08/10/19 Unknown Rx 100 MG] Minocycline HCl 100 mg PO BID 10 Days #19 capsule 08/10/19 Unknown Rx Pregabalin 50 mg [Lyrica 50 mg PO BID #14 capsule 08/10/19 Unknown Rx 50MG] Sertraline HCl 50 mg [Zoloft 50 50 mg PO DAILY #7 tab 08/10/19 Unknown Rx mg Tablet] Current Medications Discontinued Medications Generic Name Dose Route Start Last Admin Trade Name Freq PRN Reason Stop Dose Admin Hydrocodone Bitart/Acetaminophen 1 tab 08/08/19 09:55 08/10/19 09:23 [place] 10/325 Mg Tablet PO 08/13/19 09:54 1 tab Q4H PRN PRN Administration PAIN Albuterol Sulfate 2.5 mg 08/08/19 00:09 08/08/19 00:52 Proventil 2.5 Mg/3 Ml Neb IH 08/08/19 00:10 2.5 mg STAT ONE Administration Albuterol Sulfate Confirm 08/08/19 00:28 Proventil 2.5 Mg/3 Ml Neb Administered 08/08/19 00:29 Dose 2.5 mg IH .STK-MED ONE Albuterol Sulfate Confirm 08/08/19 12:16 Proventil Solution 2.5 Mg/0.5 Ml Administered 08/08/19 12:17 Dose 10 mg IH .STK-MED ONE Albuterol Sulfate 10 mg 08/08/19 15:30 08/08/19 18:54 Proventil Solution 2.5 Mg/0.5 Ml IH 08/08/19 15:31 10 mg ONCE ONE Administration Albuterol/Ipratropium 3 ml 08/07/19 21:08 08/07/19 21:18 Duoneb 0.5-3 Mg/3 Ml Neb IH 08/07/19 21:09 3 ml STAT ONE Administration Albuterol/Ipratropium Confirm 08/07/19 21:17 Duoneb 0.5-3 Mg/3 Ml Neb Administered 08/07/19 21:18 Dose 3 ml IH .STK-MED ONE Albuterol/Ipratropium Confirm 08/08/19 06:58 Duoneb 0.5-3 Mg/3 Ml Neb Administered 08/08/19 06:59 Dose 3 ml IH .STK-MED ONE Albuterol/Ipratropium 3 ml 08/08/19 19:00 08/10/19 10:54 Duoneb 0.5-3 Mg/3 Ml Neb IH 09/07/19 18:59 3 ml Q4HRT RAMIREZ Administration Albuterol/Ipratropium Confirm 08/09/19 03:04 Duoneb 0.5-3 Mg/3 Ml Neb Administered 08/09/19 03:05 Dose 3 ml IH .STK-MED ONE Albuterol/Ipratropium Confirm 08/09/19 07:15 Duoneb 0.5-3 Mg/3 Ml Neb Administered 08/09/19 07:16 Dose 3 ml IH .STK-MED ONE Clonidine 0.1 mg 08/08/19 17:02 08/10/19 05:00 [place] 0.1 Mg PO 09/07/19 17:01 0.1 mg Q6HPRN PRN Administration HYPERTENSION Clonidine Confirm 08/09/19 08:30 [place] 0.1 Mg Administered 08/09/19 08:31 Dose 0.1 mg .ROUTE .STK-MED ONE Furosemide 40 mg 08/07/19 21:57 08/07/19 22:02 Lasix 40 Mg/4 Ml IV 08/07/19 21:58 40 mg STAT ONE Administration Furosemide Confirm 08/07/19 21:59 Lasix 40 Mg/4 Ml Administered 08/07/19 22:00 Dose 40 mg .ROUTE .STK-MED ONE Hydralazine HCl 20 mg 08/07/19 23:18 08/07/19 23:26 Apresoline 20 Mg/Ml Inj IV 08/07/19 23:19 20 mg STAT ONE Administration Hydralazine HCl Confirm 08/07/19 23:24 Apresoline 20 Mg/Ml Inj Administered 08/07/19 23:25 Dose 20 mg .ROUTE .STK-MED ONE Sodium Chloride 1,000 mls @ 999 mls/hr 08/07/19 21:08 08/07/19 22:26 Sodium Chloride 0.9% 1000 Ml IV 08/07/19 22:08 Infused .Q1H1M STA Infusion Sodium Chloride Confirm 08/07/19 21:21 Sodium Chloride 0.9% 1000 Ml Administered 08/07/19 21:22 Dose 1,000 mls @ ud .ROUTE .STK-MED ONE Azithromycin 500 mg in 250 mls @ 250 mls/hr 08/08/19 10:00 08/08/19 00:01 Zithromax 500 Mg/ 250 Ml Nacl Premix IV 09/07/19 09:59 250 mls/hr Q24H10 RAMIREZ Administration Sodium Chloride 1,000 mls @ 50 mls/hr 08/07/19 23:45 08/09/19 22:49 Sodium Chloride 0.9% 1000 Ml IV 09/06/19 23:44 50 mls/hr .Q20H RAMIREZ Administration Azithromycin 500 mg in 250 mls @ 250 mls/hr 08/08/19 22:00 Zithromax 500 Mg/ 250 Ml Nacl Premix IV 09/07/19 09:59 QPM RAMIREZ Azithromycin 500 mg in 250 mls @ 250 mls/hr 08/09/19 22:00 08/09/19 21:04 Zithromax 500 Mg/ 250 Ml Nacl Premix IV 09/08/19 21:59 250 mls/hr Q24H22 RAMIREZ Administration Ceftriaxone Sodium/Dextrose 1 g in 50 mls @ 100 mls/hr 08/09/19 12:45 08:55 Rocephin 1 Gm-D5w 50 Ml Bag IV 09/08/19 12:44 100 mls/hr Q24H10 RAMIREZ Administration Labetalol HCl 200 mg 08/08/19 22:00 08/09/19 10:37 Trandate 100 Mg PO 09/07/19 21:59 200 mg BID RAMIREZ Administration Labetalol HCl 300 mg 08/09/19 14:37 08/09/19 21:04 Trandate 100 Mg PO 09/07/19 21:59 300 mg BID RAMIREZ Administration Labetalol HCl 400 mg 08/10/19 08:40 08/10/19 08:55 Trandate 100 Mg PO 09/07/19 21:59 400 mg BID RAMIREZ Administration Methylprednisolone Sodium Succinate 125 mg 08/07/19 21:08 08/07/19 21:25 Solu-Medrol 125 Mg IV 08/07/19 21:09 125 mg STAT ONE Administration Methylprednisolone Sodium Succinate Confirm 08/07/19 21:20 Solu-Medrol 125 Mg Administered 08/07/19 21:21 Dose 125 mg .ROUTE .STK-MED ONE Minocycline HCl 100 mg 08/10/19 10:00 08/10/19 08:58 Minocycline Hcl PO 09/09/19 09:59 100 mg BID RAMIREZ Administration Miscellaneous Information 1 each 08/08/19 11:00 Medication Intervention 09/07/19 10:59 .RT TO CHECK ON RAMIREZ Nebivolol 5 mg 08/08/19 11:00 08/08/19 11:01 Bystolic 5 Mg PO 09/07/19 10:59 5 mg DAILY RAMIREZ Administration Ondansetron HCl 4 mg 08/08/19 17:02 08/08/19 17:11 Zofran Odt 4 Mg PO 09/07/19 17:01 4 mg Q4H PRN PRN Administration NAUSEA/VOMITING Prednisone 50 mg 08/08/19 10:00 08/10/19 08:55 Deltasone 20 Mg PO 09/07/19 09:59 50 mg DAILY RAMIREZ Administration Prednisone 20 mg 08/10/19 09:26 08/10/19 13:29 Deltasone 20 Mg PO 09/07/19 09:59 Not Given DAILY RAMIREZ Pregabalin 50 mg 08/08/19 11:00 08/10/19 08:55 Lyrica 50mg PO 09/07/19 10:59 50 mg BID RAMIREZ Administration Fluticasone/Salmeterol 2 puff 08/08/19 19:00 08/10/19 06:54 Advair Hfa 230/21 Mcg Common Canister* IH 09/07/19 18:59 2 puff BIDRT RAMIREZ Administration Sertraline HCl 50 mg 08/08/19 11:00 08/10/19 08:57 Zoloft 50 Mg Tablet PO 09/07/19 10:59 50 mg DAILY RAMIREZ Administration Sodium Chloride Confirm 08/08/19 12:15 Sodium Chloride 3 Ml Ud Nebules Administered 08/08/19 12:16 Dose 9 ml IH .STK-MED ONE Sodium Chloride 7 ml 08/08/19 15:30 08/08/19 15:30 Sodium Chloride 3 Ml Ud Nebules IH 08/08/19 15:31 7 ml ONCE ONE Administration Zolpidem Tartrate 10 mg 08/08/19 20:18 08/09/19 21:04 Ambien 10 Mg PO 09/07/19 20:17 10 mg HS PRN PRN Administration INSOMNIA Intake & Output (Last 24 hours) 08/10/19 08/11/19 08/12/19 08/13/19 11:59 11:59 11:59 11:59 Intake Total 3787 Output Total 400 Balance 3387 Weight 98.1 kg - Vitals & Intake/Output Vital Signs: Vital Signs Temperature 98.4 F 08/10/19 11:13 Pulse Rate 84 08/10/19 11:13 Respiratory Rate 18 08/10/19 11:13 Blood Pressure 178/109 08/10/19 11:13 O2 Sat by Pulse Oximetry 97 08/10/19 11:13 Oxygen-Last Documented O2 Percentage 2 Liters = 28% Intake & Output: Intake & Output 08/10/19 08/11/19 08/12/19 08/13/19 11:59 11:59 11:59 11:59 Intake Total 3787 Output Total 400 Balance 3387 Weight 98.1 kg - Lab Result Diagrams: 08/09/19 08:42 08/09/19 08:42 Micro Results-Entire Visit: Microbiology 08/07/19 22:23 Gram Stain - Final Sputum - Expectorant Sputum Culture - Final Methicillin Resist Staph Aur - Procedures and Test Procedures and Tests throughout Hospitalization: Therapy Orders & Screens 08/07/19 21:17 Respiratory Therapy Assessment DAILY Comment: 08/08/19 07:00 Peak Expiratory Flow Rate DAILY Comment: Reason For Exam: Diagnosis: c/o shortness of breath 08/08/19 19:01 Oxygen NASAL CANNULA 2 lpm Comment: Diagnosis: c/o shortness of breath Discharge Exam General Appearance: no apparent distress, alert Neurologic Exam: alert, oriented x 3, cooperative, normal mood/affect, nml cerebellar function, sensation nml, No motor deficits Eye Exam: PERRL, EOMI, eyes nml inspection Ears, Nose, Throat Exam: normal ENT inspection, pharynx normal, moist mucous membranes Neck Exam: normal inspection, non-tender, supple, full range of motion Respiratory Exam: normal breath sounds, lungs clear, No respiratory distress Cardiovascular Exam: regular rate/rhythm, normal heart sounds Gastrointestinal/Abdomen Exam: soft, No tenderness, No mass Pelvic Exam: deferred Rectal Exam: deferred Back Exam: normal inspection, normal range of motion, No CVA tenderness, No vertebral tenderness Extremity Exam: normal inspection, normal range of motion Skin Exam: normal color, warm, dry Final Diagnosis/Problem List - Final Discharge Diagnosis/Problem (1) Bronchospasm, acute Status: Resolved (2) Acute renal failure Status: Resolved (3) Hypertension Status: Chronic Code(s): I10 - ESSENTIAL (PRIMARY) HYPERTENSION (4) Asthma Status: Chronic Code(s): J45.909 - UNSPECIFIED ASTHMA, UNCOMPLICATED - Discharge Discharge Date: 08/10/19 Disposition: Home, Self-Care Condition: Stable Prescriptions: New Labetalol HCl 100 mg [Trandate 100 MG] 400 mg PO BID 30 Days #60 tablet Minocycline HCl 100 mg PO BID 10 Days #19 capsule Continue Budesonide/Formoterol Fumarate [Symbicort 160-4.5 Mcg Inhaler] 2 puff IH BID Pregabalin 50 mg [Lyrica 50MG] 50 mg PO BID #14 capsule Sertraline HCl 50 mg [Zoloft 50 mg Tablet] 50 mg PO DAILY #7 tab Discontinued Nebivolol HCl 5 MG [Bystolic 5 MG] 5 mg PO DAILY Instructions: High Blood Pressure (DC) Follow up with: JOANNE BAL MD [Primary Care Provider] - 08/17/19 10:15 am Forms: Discharge Instructions
== END 2019-08-10 13:18 | disposition home or self-care (01) ==
LOC: ED 20:54 → MED SURG 08-08 00:19
PROVIDERS: ADMIT General Practice; ATTEND General Practice
DX: J98.01 Acute bronchospasm (principal); N17.9 Acute kidney failure, unspecified; I10 Essential (primary) hypertension
CPT/HCPCS: 36000; 36415; 71045; 80053; 80307; 81001; 83880; 84484; 85025; 85027; 85379; 87070; 87077; 87186; 87631; 94150; 94640; 94760; 96360; 96365; 96374; 96375; 99285; G0378; J0360; J0456; J0696; J1940; J2930; J7609; Q0162; A9270-GY

== ENCOUNTER 2020-10-23 03:22 | Observation (INO) | payer OTHER ==
[2020-10-23] MEDS ORDERED: TRANDATE 20 MG/4 ML SYRINGE IV ONE ×2 (03:50→03:58)
[2020-10-23] MEDS ORDERED: BABY ASPIRIN 81 MG CHEW PO ONE (03:50)
[2020-10-23] MEDS ORDERED: Sodium Chloride 0.9% 1000 ML 1,000 ML IV STA (03:50)
[2020-10-23] MEDS ORDERED: Nitrostat 0.4 MG (ED) SL ONE ×2 (03:50→03:58)
--- NOTE | 2020-10-23 03:54 | ERPHSYRPT ---
- History of Present Illness Time Seen by Provider: 10/23/20 03:49 Historian: patient Exam Limitations: no limitations Patient Subjective Stated Complaint: pt states her blood pressure has been high and shes not feeling well. has also bween having chest pain. Triage Nursing Assessment: pt alert and oriented, answers questions approp. pt ambulatory with steady gait noted, respriations nonlabored with lungsc ta. skin pink warm and dry. heart rate 135-108 on monitor, sinus tach with occasional pvc noted. Physician History: pt is 25 yr old female with hx crohns, CRD and hypertension, now also with chest pain. no N/V or fever, No cough but some SObreath. abd is mildly tender LUQ without peritoneal signs. ( but has Hx Crohns. Heart score is 4 : 1 for NS EKG changes; 2 for risk factors (3 or more) of hptn, family with CAD young, renal arterial vascular disease, ; 1 for moderately suspicious type of CP. Timing/Duration: yesterday Activities at Onset: none Quality: fullness, pressure, tightness Location: substernal, central, epigastric Chest Pain Radiation: arm Severity of Pain-Max: moderate Severity of Pain-Current: moderate Modifying Factors: Improves With: nothing Associated Symptoms: heartburn, shortness of breath Prior Chest Pain/Cardiac Workup: cardiac cath Nitro Today/Relief: 0.4 mg x 1, provided by ED, mild relief Aspirin Treatment Today: 325 mg x 1, provided by ED Allergies/Adverse Reactions: Penicillins Allergy (Severe, Verified 10/23/20 03:39) Hives Home Medications: Lisinopril 10 mg [Zestril 10 MG] 20 mg PO DAILY 10/23/20 [History] Omeprazole 20 mg PO DAILY 10/23/20 [History] Hx Tetanus, Diphtheria Vaccination/Date Given: Yes Hx Influenza Vaccination/Date Given: No Hx Pneumococcal Vaccination/Date Given: No Immunizations Up to Date: Yes Travel Risk - International Travel Have you traveled outside of the country in past 3 weeks: No - Coronavirus Screening Are you exhibiting any of the following symptoms?: No Close contact with a COVID-19 positive Pt in past 14-21 Days: No - Review of Systems Constitutional: No Fever, No Chills Eyes: No Symptoms Ears, Nose, & Throat: No Symptoms Respiratory: Dyspnea, No Cough Cardiac: Chest Pain, No Edema, No Syncope Abdominal/Gastrointestinal: Abdominal Pain, No Nausea, No Vomiting, No Diarrhea Genitourinary Symptoms: No Dysuria Musculoskeletal: No Back Pain, No Neck Pain Skin: No Symptoms, No Rash Neurological: No Dizziness, No Focal Weakness, No Sensory Changes Psychological: No Symptoms Endocrine: No Symptoms Hematologic/Lymphatic: No Symptoms Immunological/Allergic: No Symptoms All Other Systems: Reviewed and Negative - Past Medical History Pertinent Past Medical History: Yes Neurological History: No Pertinent History ENT History: No Pertinent History Cardiac History: Hypertension Respiratory History: No Pertinent History Endocrine Medical History: No Pertinent History Musculoskeletal History: Arthritis GI Medical History: Colitis, Crohns Disease, GERD History: Other Psycho-Social History: Anxiety, Depression Female Reproductive Disorders: No Pertinent History Other Medical History: PAST DX OF STAGE I KIDNEY FAILURE. 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 - Social History Smoking Status: Former smoker Exposure to second hand smoke: Yes Drug Use: none Patient Lives Alone: No - Female History Hx Last Menstrual Period: 1 week Hx Now: No - Nursing Vital Signs Nursing Vital Signs: Initial Vital Signs Temperature 98.6 F 10/23/20 03:24 Pulse Rate 135 H 10/23/20 03:24 Respiratory Rate 18 10/23/20 03:24 Blood Pressure 171/129 10/23/20 03:24 O2 Sat by Pulse Oximetry 97 10/23/20 03:24 Pain Scale Pain Intensity 4 - Physical Exam General Appearance: no apparent distress, alert Eye Exam: PERRL/EOMI, eyes nml inspection Ears, Nose, Throat Exam: normal ENT inspection, moist mucous membranes Neck Exam: normal inspection, non-tender, supple, full range of motion Respiratory Exam: normal breath sounds, lungs clear, No respiratory distress Cardiovascular Exam: regular rate/rhythm, normal heart sounds Gastrointestinal/Abdomen Exam: soft, tenderness (LUQ), No mass Pelvic Exam: deferred Rectal Exam: deferred Back Exam: normal inspection, No CVA tenderness, No vertebral tenderness Extremity Exam: normal inspection, normal range of motion Neurologic Exam: alert, oriented x 3, cooperative, normal mood/affect, sensation nml, No motor deficits Skin Exam: normal color, warm, dry SpO2 Interpretation: normal SpO2: 97 O2 Delivery: Room Air - Course Nursing assessment & vital signs reviewed: Yes EKG Interpreted by Me: Sinus Tach, Non-specific ST Changes - Radiology Exams Chest X-ray Interpretation: Reviewed by me, No Pneumonia, No Pneumothorax, Other (mild lower lobe stranding bilat) - CT Exams Abdomen/Pelvis CT Interpretation: Tele-radiologist Report, Other (thickening descending colon; nonobs renal stones) Ordered Tests: Active Orders 24 hr Category Date Time Status Mine Expert STAT Care 10/23/20 03:52 Active EKG-ER Only STAT Care 10/23/20 03:50 Active IV Insertion STAT Care 10/23/20 03:50 Active ABDOMEN AND PELVIS W/0 CONTRAS [CT] Stat Exams 10/23/20 04:46 Taken CHEST 1 VIEW (PORTABLE) Stat Exams 10/23/20 03:52 Taken AMYLASE Stat Lab 10/23/20 04:00 Completed CBC W DIFF Stat Lab 10/23/20 04:00 Completed CMP Stat Lab 10/23/20 04:00 Completed D-DIMER QUANTITATIVE Stat Lab 10/23/20 04:00 Completed HCG QUALITATIVE,SERUM Stat Lab 10/23/20 04:00 Completed LIPASE Stat Lab 10/23/20 04:00 Completed Lactic Acid Stat Lab 10/23/20 03:58 Completed TROPONIN Q3H Lab 10/23/20 04:00 Completed TROPONIN Q3H Lab 10/23/20 07:00 Ordered TROPONIN Q3H Lab 10/23/20 10:00 Ordered TROPONIN Q3H Lab 10/23/20 13:00 Ordered TROPONIN Q3H Lab 10/23/20 16:00 Ordered UA W/RFX UR CULTURE Stat Lab 10/23/20 03:51 Ordered Medication Summary Discontinued Medications Generic Name Dose Route Start Last Admin Trade Name Freq PRN Reason Stop Dose Admin Aspirin 324 mg 10/23/20 03:50 10/23/20 04:02 Baby Aspirin 81 Mg Chew PO 10/23/20 03:51 324 mg STAT ONE Administration Aspirin Confirm 10/23/20 03:58 Baby Aspirin 81 Mg Chew Administered 10/23/20 03:59 Dose 324 mg .ROUTE .STK-MED ONE Famotidine 20 mg 10/23/20 04:09 10/23/20 04:20 Pepcid 20 Mg Vial IV 10/23/20 04:10 20 mg STAT ONE Administration Famotidine Confirm 10/23/20 04:13 Pepcid 20 Mg Vial Administered 10/23/20 04:14 Dose 20 mg IV .STK-MED ONE Sodium Chloride 1,000 mls @ 999 mls/hr 10/23/20 03:50 10/23/20 04:03 Sodium Chloride 0.9% 1000 Ml IV 10/23/20 04:50 999 mls/hr .Q1H1M STA Administration Sodium Chloride Confirm 10/23/20 03:58 Sodium Chloride 0.9% 1000 Ml Administered 10/23/20 03:59 Dose 1,000 mls @ ud .ROUTE .STK-MED ONE Labetalol HCl 10 mg 10/23/20 03:50 10/23/20 04:03 Trandate 20 Mg/4 Ml Syringe IV 10/23/20 03:51 10 mg STAT ONE Administration Labetalol HCl Confirm 10/23/20 03:58 Trandate 20 Mg/4 Ml Syringe Administered 10/23/20 03:59 Dose 20 mg IV .STK-MED ONE Morphine Sulfate 4 mg 10/23/20 04:49 10/23/20 05:39 Morphine Sulfate 4 Mg Inj IV 10/23/20 04:50 4 mg STAT ONE Administration Morphine Sulfate Confirm 10/23/20 05:38 Morphine Sulfate 4 Mg Inj Administered 10/23/20 05:39 Dose 4 mg .ROUTE .STK-MED ONE Nitroglycerin 0.4 mg 10/23/20 03:50 10/23/20 04:03 Nitrostat 0.4 Mg (Ed) SL 10/23/20 03:51 0.4 mg STAT ONE Administration Nitroglycerin Confirm 10/23/20 03:58 Nitrostat 0.4 Mg (Ed) Administered 10/23/20 03:59 Dose 0.4 mg SL .STK-MED ONE Pantoprazole Sodium 40 mg 10/23/20 04:09 10/23/20 04:20 Protonix 40 Mg Iv IV 10/23/20 04:10 40 mg STAT ONE Administration Pantoprazole Sodium Confirm 10/23/20 04:13 Protonix 40 Mg Iv Administered 10/23/20 04:14 Dose 40 mg IV .STK-MED ONE Lab/Rad Data: Laboratory Result Diagrams 10/23/20 04:00 10/23/20 04:00 Laboratory Results 10/23/20 10/23/20 10/23/20 Range/Units 04:00 04:00 04:00 WBC (4.0-10.5) K/mm3 RBC (4.1-5.4) M/mm3 Hgb (12.0-16.0) gm/dl Hct (35-47) % MCV (78-100) fl MCH (26-32) pg MCHC (32-36) g/dl RDW (11.5-14.0) % Plt Count (150-450) K/mm3 MPV (7.5-11.0) fl Gran % (36.0-66.0) % Eos # (Auto) (0-0.5) Absolute Lymphs (auto) (1.0-4.6) Absolute Monos (auto) (0.0-1.3) Lymphocytes % (24.0-44.0) % Monocytes % (0.0-12.0) % Eosinophils % (0.00-5.0) % Basophils % (0.0-0.4) % Absolute Granulocytes (1.4-6.9) Basophils # (0-0.4) D-Dimer (215-500) ng/mL Sodium 139 (137-145) mmol/L Potassium 4.0 (3.5-5.1) mmol/L Chloride 104 (98-107) mmol/L Carbon Dioxide 24 (22-30) mmol/L Anion Gap 15.1 H (5-15) MEQ/L BUN 19 H (7-17) mg/dL Creatinine 1.25 H (0.52-1.04) mg/dL Estimated GFR 54.6 ML/MIN Glucose 134 H (74-106) mg/dL Lactic Acid (0.4-2.0) Calcium 9.9 (8.4-10.2) mg/dL Total Bilirubin 0.50 (0.2-1.3) mg/dL AST 34 (14-36) U/L ALT 25 (0-35) U/L Alkaline Phosphatase 73 (38-126) U/L Troponin I < 0.012 (0.000-0.034) ng/mL Serum Total Protein 7.6 (6.3-8.2) g/dL Albumin 4.3 (3.5-5.0) g/dL Amylase (30-110) U/L Lipase (23-300) U/L Serum , Qual NEGATIVE (Negative) 10/23/20 10/23/20 10/23/20 Range/Units 04:00 04:00 04:00 WBC 13.2 H (4.0-10.5) K/mm3 RBC 4.23 (4.1-5.4) M/mm3 Hgb 12.7 (12.0-16.0) gm/dl Hct 39.2 (35-47) % MCV 92.7 (78-100) fl MCH 30.0 (26-32) pg MCHC 32.4 (32-36) g/dl RDW 16.0 H (11.5-14.0) % Plt Count 604 H (150-450) K/mm3 MPV 9.7 (7.5-11.0) fl Gran % 52.2 (36.0-66.0) % Eos # (Auto) 0 (0-0.5) Absolute Lymphs (auto) 4.86 H (1.0-4.6) Absolute Monos (auto) 1.39 H (0.0-1.3) Lymphocytes % 36.8 (24.0-44.0) % Monocytes % 10.5 (0.0-12.0) % Eosinophils % 0.0 (0.00-5.0) % Basophils % 0.5 (0.0-0.4) % Absolute Granulocytes 6.88 (1.4-6.9) Basophils # 0.06 (0-0.4) D-Dimer < 215 L (215-500) ng/mL Sodium (137-145) mmol/L Potassium (3.5-5.1) mmol/L Chloride (98-107) mmol/L Carbon Dioxide (22-30) mmol/L Anion Gap (5-15) MEQ/L BUN (7-17) mg/dL Creatinine (0.52-1.04) mg/dL Estimated GFR ML/MIN Glucose (74-106) mg/dL Lactic Acid (0.4-2.0) Calcium (8.4-10.2) mg/dL Total Bilirubin (0.2-1.3) mg/dL AST (14-36) U/L ALT (0-35) U/L Alkaline Phosphatase (38-126) U/L Troponin I (0.000-0.034) ng/mL Serum Total Protein (6.3-8.2) g/dL Albumin (3.5-5.0) g/dL Amylase 102 (30-110) U/L Lipase 186 (23-300) U/L Serum , Qual (Negative) 10/23/20 Range/Units 03:58 WBC (4.0-10.5) K/mm3 RBC (4.1-5.4) M/mm3 Hgb (12.0-16.0) gm/dl Hct (35-47) % MCV (78-100) fl MCH (26-32) pg MCHC (32-36) g/dl RDW (11.5-14.0) % Plt Count (150-450) K/mm3 MPV (7.5-11.0) fl Gran % (36.0-66.0) % Eos # (Auto) (0-0.5) Absolute Lymphs (auto) (1.0-4.6) Absolute Monos (auto) (0.0-1.3) Lymphocytes % (24.0-44.0) % Monocytes % (0.0-12.0) % Eosinophils % (0.00-5.0) % Basophils % (0.0-0.4) % Absolute Granulocytes (1.4-6.9) Basophils # (0-0.4) D-Dimer (215-500) ng/mL Sodium (137-145) mmol/L Potassium (3.5-5.1) mmol/L Chloride (98-107) mmol/L Carbon Dioxide (22-30) mmol/L Anion Gap (5-15) MEQ/L BUN (7-17) mg/dL Creatinine (0.52-1.04) mg/dL Estimated GFR ML/MIN Glucose (74-106) mg/dL Lactic Acid 1.8 (0.4-2.0) Calcium (8.4-10.2) mg/dL Total Bilirubin (0.2-1.3) mg/dL AST (14-36) U/L ALT (0-35) U/L Alkaline Phosphatase (38-126) U/L Troponin I (0.000-0.034) ng/mL Serum Total Protein (6.3-8.2) g/dL Albumin (3.5-5.0) g/dL Amylase (30-110) U/L Lipase (23-300) U/L Serum , Qual (Negative) - Progress Progress: improved, re-examined Air Movement: good Progress Note: 10/23/20 04:29 CP and BP improved after NTG and BP med. 10/23/20 04:41 pt states that her leg pain/tingling is chronic ongoing and her PCP is aware. No neuro deficit. Good pulses and color bilateral without swelling or tende rness. 10/23/20 06:30 Discussed results with pt and Dr. Hurtado , covering for Dr. Bal and all agree best for pt to come in on observation and will begin Tx in case of crohns and watch troponins due to heart risk and treat pain. Blood Culture(s) Obtained: No Antibiotics given: Yes Discussed with : Jb Will see patient in: hospital (observation) Counseled pt/family regarding: lab results, diagnosis, need for follow-up, rad results - Departure Departure Disposition: Observation Clinical Impression: Poorly-controlled hypertension, Chest pain, abdominal pain/Crohns, Renal insufficiency Condition: Good Critical Care Time: No Referrals: JOANNE BAL MD [Primary Care Provider] -
[2020-10-23] MEDS ORDERED: Sodium Chloride 0.9% 1000 ML 1,000 ML ONE (03:58)
[2020-10-23] MEDS ORDERED: BABY ASPIRIN 81 MG CHEW ONE (03:58)
[2020-10-23] MEDS ORDERED: Pepcid 20 MG VIAL IV ONE ×2 (04:09→04:13)
[2020-10-23] MEDS ORDERED: PROTONIX 40 MG IV IV ONE ×2 (04:09→04:13)
[2020-10-23 04:13] LABS: Absolute Neutrophil Ct (ANC) 6.88 (1.4-6.9); BASOPHIL % 0.5 % (0.0-0.4); Basophil (Absolute #) 0.06 (0-0.4); Eosinophil (Absolute #) 0 (0-0.5); Hematocrit 39.2 % (35-47); Hemoglobin 12.7 gm/dl (12.0-16.0); Lymphocyte (Absolute #) 4.86 (1.0-4.6); Lymphocytes % 36.8 % (24.0-44.0); Mean Cell Volume 92.7 fl (78-100); Mean Corpuscular Hgb Concent. 32.4 g/dl (32-36); Mean Platelet Volume 9.7 fl (7.5-11.0); Monocyte (Absolute #) 1.39 (0.0-1.3); Monocytes % 10.5 % (0.0-12.0); Neutrophil % 52.2 % (36.0-66.0); Platelet Count 604 K/mm3 (150-450); Red Blood Count 4.23 M/mm3 (4.1-5.4); White Blood Count 13.2 K/mm3 (4.0-10.5)
[2020-10-23 04:21] LABS: AMYLASE 102 U/L (30-110); LIPASE 186 U/L (23-300)
[2020-10-23] MEDS ORDERED: MORPHINE SULFATE 4 MG INJ IV ONE ×2 (04:49→08:20)
[2020-10-23 05:34] LABS: ALBUMIN 4.3 g/dL (3.5-5.0); ANION GAP 15.1 MEQ/L (5-15); BILIRUBIN,TOTAL 0.5 mg/dL (0.2-1.3); Calcium 9.9 mg/dL (8.4-10.2); Creatinine 1 1.25 mg/dL (0.52-1.04); EST GLOMERULAR FILTRATION RATE 54.6 ML/MIN; Total Protein 7.6 g/dL (6.3-8.2)
[2020-10-23] MEDS ORDERED: MORPHINE SULFATE 4 MG INJ ONE ×2 (05:38→08:21)
--- NOTE | 2020-10-23 08:48 | XRAY ---
Indication: Abdomen pain. History Crohn's disease. Multiple contiguous axial images obtained through the abdomen and pelvis without contrast as ordered. Comparison: July 14, 2019. Lung bases remain clear. Heart is not enlarged. Stomach mildly distended with fluid/fluid. Gallbladder contracted without gallstones or biliary distention. Noncontrasted stomach and bowel loops remain nonobstructed. Again tiny appendicolith without acute appendicitis. New 2.8 cm left ovary cyst. No free fluid/air. Stable 2 cm left renal cortical cyst. Remaining liver, gallbladder, pancreas, spleen, adrenal glands, kidneys, ureters, bladder, uterus, and aorta appear unremarkable for noncontrast exam. Osseous structures intact. Impression: 1. New 2.8 cm left ovary cyst better evaluated with ultrasound if clinically warranted. 2. Stable left renal cyst and tiny appendicolith . 3. Remaining CT abdomen/pelvis without contrast exam is negative. Comment: Preliminary interpretation was made by [facility]. No critical discrepancy.
--- NOTE | 2020-10-23 08:50 | XRAY ---
Indication: Chest pain. Hypertension. Comparison: August 07, 2019. Portable chest again demonstrates normal heart and lungs. Bony thorax intact. No new/acute findings.
[2020-10-23] MEDS ORDERED: TRANDATE 20 MG/4 ML SYRINGE IV PRN (08:57)
[2020-10-23] MEDS ORDERED: TYLENOL 325 MG PO PRN (08:57)
[2020-10-23] MEDS ORDERED: MORPHINE SULFATE 2 MG INJ IV PRN (08:57)
[2020-10-23] MEDS ORDERED: Sodium Chloride 0.9% 500 ML 500 ML IV SCH (08:57)
[2020-10-23] MEDS ORDERED: Senokot-S Tablet PO PRN (08:57)
[2020-10-23] MEDS ORDERED: MILK OF MAGNESIA 30 ML PO PRN (08:57)
[2020-10-23] MEDS ORDERED: Zofran 4 MG/2 ML VIAL IV PRN (08:57)
[2020-10-23] MEDS ORDERED: MAALOX ES 30 ML UNIT DOSE PO PRN (08:57)
[2020-10-23] MEDS ORDERED: HUMULIN R SQ PRN (08:57)
[2020-10-23] MEDS ORDERED: Sodium Chloride 0.9% 1000 ML 1,000 ML IV SCH (09:30)
[2020-10-23] MEDS ORDERED: Bystolic 5 MG PO SCH (10:00)
[2020-10-23] MEDS ORDERED: Pepcid 20 MG VIAL IV SCH (10:00)
[2020-10-23] MEDS ORDERED: Levofloxacin 500MG/100ML D5W 500 MG/100 ML BAG IV SCH (10:00)
[2020-10-23] MEDS ORDERED: DESYREL 50 MG PO ONE (11:52)
[2020-10-23] MEDS ORDERED: FLAGYL 500 MG IVPB 500 MG/100 ML BAG IV SCH (12:00)
[2020-10-23] MEDS ORDERED: solu-MEDROL 40 MG IV SCH (12:00)
[2020-10-23 12:02] VITALS: PULSE 78; O2SAT 98
[2020-10-23] MEDS ORDERED: Sinemet CR 50/200 MG PO SCH (12:06)
[2020-10-23 12:22] VITALS: BP 143/92
[2020-10-23] MEDS ORDERED: Zestril 20 MG PO SCH (13:00)
[2020-10-23] MEDS ORDERED: Protonix 40MG Tablet PO SCH (13:00)
--- NOTE | 2020-10-23 13:39 | XRAY ---
Indication: Hypertension. Renal insufficiency. Two-dimensional renal sonogram performed. Comparison: October 27, 2011. Both kidneys remain normal in reniform shape with normal color perfusion. Right kidney measures 11.1 x 4.9 x 5.8 cm and the left measures 10.3 x 5.6 x 6.3 cm. Left lower pole demonstrates new 2.1 cm cortical cyst. No solid renal mass or hydronephrosis. Corticomedullary differentiation preserved. Images of the minimally distended urinary bladder grossly unremarkable with prevoid volume 95 cc. Ureteral jets are seen within the allotted exam time. Postvoid demonstrates complete bladder emptying. Impression: New left renal cyst. Remaining renal sonogram is negative.
[2020-10-23] MEDS ORDERED: DESYREL 50 MG PO SCH (22:00)
[2020-10-24] MEDS ORDERED: NON-FORMULARY ITEM (Omeprazole [Omeprazole] 20 MG) PO SCH (10:00)
--- NOTE | 2020-10-25 20:38 | PCM.SSS ---
History of Present Illness - Chief Complaint Chief Complaint: abdominal pain, high blood pressure History of Present Illness: is a 25 year old female.with hx crohns, CRD and hypertension, now also with chest pain. no N/V or fever, No cough but some SObreath. abd is mildly tender LUQ without peritoneal signs. ( but has Hx Crohns. Heart score is 4 : 1 for NS EKG changes; 2 for risk factors (3 or more) of hptn, family with CAD young, renal arterial vascular disease, ; 1 for moderately suspicious type of CP. Timing/Duration: yesterday Activities at Onset: none Quality: fullness, pressure, tightness Location: substernal, central, epigastric Chest Pain Radiation: arm Severity of Pain-Max: moderate Severity of Pain-Current: moderate Modifying Factors: Improves With: nothing Associated Symptoms: heartburn, shortness of breath Prior Chest Pain/Cardiac Workup: cardiac cath Nitro Today/Relief: 0.4 mg x 1, provided by ED, mild relief Aspirin Treatment Today: 325 mg x 1, provided by ED - Review of Systems Constitutional: Malaise, Weakness, No Fever, No Chills Eyes: No Symptoms Ears, Nose, & Throat: No Symptoms Respiratory: No Cough, No Short Of Breath Cardiac: No Chest Pain, No Edema, No Syncope Abdominal/Gastrointestinal: Abdominal Pain, No Nausea, No Vomiting, No Diarrhea Genitourinary Symptoms: No Dysuria Musculoskeletal: No Back Pain, No Neck Pain Skin: No Rash Neurological: No Dizziness, No Focal Weakness, No Sensory Changes Psychological: No Symptoms Endocrine: No Symptoms Hematologic/Lymphatic: No Symptoms Immunological/Allergic: No Symptoms Medications & Allergies Home Medications: Home Medication List Carbidopa/Levodopa [Sinemet Cr 50-200 Tablet] 1 each PO BID #30 tablet.er 10/23/20 [Rx] Lisinopril 10 mg [Zestril 10 MG] 20 mg PO DAILY 10/23/20 [History Confirmed 10/23/20] Omeprazole 20 mg PO DAILY 10/23/20 [History Confirmed 10/23/20] Allergies/Adverse Reactions: Allergies Allergy/AdvReac Type Severity Reaction Status Date / Time Penicillins Allergy Severe Hives Verified 10/23/20 08:58 - Past Medical History Past Medical History: Yes Neurological History: No Pertinent History ENT History: No Pertinent History Cardiac History: Hypertension Respiratory History: No Pertinent History Endocrine Medical History: No Pertinent History Musculoskelatal History: Arthritis GI Medical History: Colitis, Crohns Disease, GERD History: Other Pyscho-Social History: Anxiety, Depression Reproductive Disorders: Endometriosis, Pelvic Inflammatory Disease Comment: PAST DX OF STAGE I KIDNEY FAILURE. 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 - Social History Smoking Status: Never smoker Exposure to second hand smoke: Yes Alcohol: None Drug Use: none - Physical Exam General Appearance: no apparent distress, alert Neurologic Exam: alert, oriented x 3, cooperative, normal mood/affect, nml cerebellar function, nml station & gait, sensation nml, No motor deficits Eye Exam: PERRL/EOMI, eyes nml inspection Ears, Nose, Throat Exam: normal ENT inspection, TMs normal, pharynx normal, moist mucous membranes Neck Exam: normal inspection, non-tender, supple, full range of motion Respiratory Exam: normal breath sounds, lungs clear, No respiratory distress Cardiovascular Exam: regular rate/rhythm, normal heart sounds, normal peripheral pulses Gastrointestinal/Abdomen Exam: soft, normal bowel sounds, No tenderness, No mass Back Exam: normal inspection, normal range of motion, No CVA tenderness, No vertebral tenderness Extremity Exam: normal inspection, normal range of motion, pelvis stable Skin Exam: normal color, warm, dry, No rash Lymphatic Exam: No adenopathy Assessment/Plan (1) Acute colitis Status: Resolved Code(s): K52.9 - NONINFECTIVE GASTROENTERITIS AND COLITIS, UNSPECIFIED (2) Poorly-controlled hypertension Status: Chronic Code(s): I10 - ESSENTIAL (PRIMARY) HYPERTENSION (3) Renal insufficiency Status: Chronic Hospital Summary - Hospital Course Hospital Course: Chief Complaint Diagnosis uncontrolled hypertension, chron's disease Allergies Allergy/AdvReac Type Severity Reaction Status Date / Time Penicillins Allergy Severe Hives Verified 10/23/20 08:58 Home Medications Medication Instructions Recorded Confirmed Last Taken Type Carbidopa/Levodopa [Sinemet Cr 1 each PO BID #30 tablet.er 10/23/20 Unknown Rx 50-200 Tablet] Lisinopril 10 mg [Zestril 10 20 mg PO DAILY 10/23/20 10/23/20 10/22/20 History MG] Omeprazole 20 mg PO DAILY 10/23/20 10/23/20 10/22/20 History Current Medications Discontinued Medications Generic Name Dose Route Start Last Admin Trade Name Freq PRN Reason Stop Dose Admin Acetaminophen 650 mg 10/23/20 08:57 Tylenol 325 Mg PO 11/22/20 08:56 Q4H PRN PRN PAIN AND/OR FEVER Al Hydrox/Mg Hydrox/Simethicone 30 ml 10/23/20 08:57 Maalox Es 30 Ml Unit Dose PO 11/22/20 08:56 Q4H PRN PRN INDIGESTION Aspirin 324 mg 10/23/20 03:50 10/23/20 04:02 Baby Aspirin 81 Mg Chew PO 10/23/20 03:51 324 mg STAT ONE Administration Aspirin Confirm 10/23/20 03:58 Baby Aspirin 81 Mg Chew Administered 10/23/20 03:59 Dose 324 mg .ROUTE .STK-MED ONE Carbidopa/Levodopa 1 udtab.sa 10/23/20 12:06 Sinemet Cr 50/200 Mg PO 11/22/20 12:05 BID RAMIREZ Famotidine 20 mg 10/23/20 04:09 10/23/20 04:20 Pepcid 20 Mg Vial IV 10/23/20 04:10 20 mg STAT ONE Administration Famotidine Confirm 10/23/20 04:13 Pepcid 20 Mg Vial Administered 10/23/20 04:14 Dose 20 mg IV .STK-MED ONE Famotidine 20 mg 10/23/20 10:00 Pepcid 20 Mg Vial IV 11/22/20 09:59 Q12HT RAMIREZ Sodium Chloride 1,000 mls @ 999 mls/hr 10/23/20 03:50 10/23/20 07:18 Sodium Chloride 0.9% 1000 Ml IV 10/23/20 04:50 Infused .Q1H1M STA Infusion Sodium Chloride Confirm 10/23/20 03:58 Sodium Chloride 0.9% 1000 Ml Administered 10/23/20 03:59 Dose 1,000 mls @ ud .ROUTE .STK-MED ONE Levofloxacin/Dextrose 500 mg in 100 mls @ 100 mls/hr 10/23/20 10:00 10/23/20 10:03 Levofloxacin 500mg/100ml D5w IV 11/22/20 09:59 100 mls/hr Q24H10 RAMIREZ Administration Metronidazole 500 mg in 100 mls @ 200 mls/hr 10/23/20 12:00 10/23/20 12:05 Flagyl 500 Mg Ivpb IV 11/22/20 11:59 200 mls/hr Q6HT RAMIREZ Administration Sodium Chloride 1,000 mls @ 150 mls/hr 10/23/20 09:30 10/23/20 09:57 Sodium Chloride 0.9% 1000 Ml IV 11/22/20 09:29 150 mls/hr .Q6H40M RAMIREZ Administration Insulin Human Regular 0 unit 10/23/20 08:57 Humulin R SQ 11/22/20 08:56 UD PRN HYPERGLYCEMIA Labetalol HCl 10 mg 10/23/20 03:50 10/23/20 04:03 Trandate 20 Mg/4 Ml Syringe IV 10/23/20 03:51 10 mg STAT ONE Administration Labetalol HCl Confirm 10/23/20 03:58 Trandate 20 Mg/4 Ml Syringe Administered 10/23/20 03:59 Dose 20 mg IV .STK-MED ONE Labetalol HCl 10 mg 10/23/20 08:57 Trandate 20 Mg/4 Ml Syringe IV 11/22/20 08:56 Q6H PRN PRN Lisinopril 20 mg 10/23/20 13:00 Zestril 20 Mg PO 11/22/20 12:59 DAILY RAMIREZ Magnesium Hydroxide 30 - 60 ml 10/23/20 08:57 Milk Of Magnesia 30 Ml PO 11/22/20 08:56 QDP PRN CONSTIPATION Methylprednisolone Sodium Succinate 40 mg 10/23/20 12:00 10/23/20 12:05 Solu-Medrol 40 Mg IV 11/22/20 11:59 40 mg Q6HT RAMIREZ Administration Morphine Sulfate 4 mg 10/23/20 04:49 10/23/20 05:39 Morphine Sulfate 4 Mg Inj IV 10/23/20 04:50 4 mg STAT ONE Administration Morphine Sulfate Confirm 10/23/20 05:38 Morphine Sulfate 4 Mg Inj Administered 10/23/20 05:39 Dose 4 mg .ROUTE .STK-MED ONE Morphine Sulfate 4 mg 10/23/20 08:20 10/23/20 08:22 Morphine Sulfate 4 Mg Inj IV 10/23/20 08:21 4 mg STAT ONE Administration Morphine Sulfate Confirm 10/23/20 08:21 Morphine Sulfate 4 Mg Inj Administered 10/23/20 08:22 Dose 4 mg .ROUTE .STK-MED ONE Morphine Sulfate 2 mg 10/23/20 08:57 10/23/20 10:00 Morphine Sulfate 2 Mg Inj IV 10/28/20 08:56 2 mg .Q15MIN PRN PRN Administration CHEST PAIN Nebivolol 5 mg 10/23/20 10:00 10/23/20 10:06 Bystolic 5 Mg PO 11/22/20 09:59 5 mg DAILY RAMIREZ Administration Nitroglycerin 0.4 mg 10/23/20 03:50 10/23/20 04:03 Nitrostat 0.4 Mg (Ed) SL 10/23/20 03:51 0.4 mg STAT ONE Administration Nitroglycerin Confirm 10/23/20 03:58 Nitrostat 0.4 Mg (Ed) Administered 10/23/20 03:59 Dose 0.4 mg SL .STK-MED ONE Ondansetron HCl 4 mg 10/23/20 08:57 Zofran 4 Mg/2 Ml Vial IV 11/22/20 08:56 Q4H PRN PRN NAUSEA/VOMITING Pantoprazole Sodium 40 mg 10/23/20 04:09 10/23/20 04:20 Protonix 40 Mg Iv IV 10/23/20 04:10 40 mg STAT ONE Administration Pantoprazole Sodium Confirm 10/23/20 04:13 Protonix 40 Mg Iv Administered 10/23/20 04:14 Dose 40 mg IV .STK-MED ONE Pantoprazole Sodium 40 mg 10/23/20 13:00 Protonix 40mg Tablet PO 11/22/20 12:59 DAILY RAMIREZ Senna/Docusate Sodium 2 udtab 10/23/20 08:57 Senokot-S Tablet PO 11/22/20 08:56 BID PRN PRN CONSTIPATION Trazodone HCl 100 mg 10/23/20 11:52 Desyrel 50 Mg PO 10/23/20 11:53 ONCE ONE Trazodone HCl 100 mg 10/23/20 22:00 Desyrel 50 Mg PO 11/22/20 21:59 HS RAMIREZ Intake & Output (Last 24 hours) 10/23/20 10/24/20 10/25/20 10/26/20 11:59 11:59 11:59 11:59 Intake Total 480 480 Balance 480 480 Weight 84.277 kg - Vitals & Intake/Output Vital Signs: Vital Signs Temperature 98.0 F 10/23/20 12:00 Pulse Rate 78 10/23/20 12:00 Respiratory Rate 22 10/23/20 12:00 Blood Pressure 143/92 10/23/20 12:00 O2 Sat by Pulse Oximetry 98 10/23/20 12:00 Intake & Output: Intake & Output 10/23/20 10/24/20 10/25/20 10/26/20 11:59 11:59 11:59 11:59 Intake Total 480 480 Balance 480 480 Weight 84.277 kg - Lab Result Diagrams: 10/23/20 04:00 10/23/20 04:00 - Procedures and Test Procedures and Tests throughout Hospitalization: Therapy Orders & Screens 10/23/20 08:57 EKG Q8HX2,QAMX3,PRN Comment: - Discharge Discharge Date: 10/23/20 Disposition: Home, Self-Care Condition: Stable Prescriptions: New Carbidopa/Levodopa [Sinemet Cr 50-200 Tablet] 1 each PO BID #30 tablet.er No Action Omeprazole 20 mg PO DAILY Lisinopril 10 mg [Zestril 10 MG] 20 mg PO DAILY Instructions: Controlling Your Blood Pressure Through Lifestyle Follow up with: JOANNE BAL MD [Primary Care Provider] - 7 Days
== END 2020-10-23 13:35 | disposition home or self-care (01) ==
LOC: ED 03:22 → MED SURG 08:39
PROVIDERS: ADMIT Family Medicine; ATTEND General Practice
DX: K52.9 Noninfective gastroenteritis and colitis, unspecified (principal); R07.9 Chest pain, unspecified; N28.9 Disorder of kidney and ureter, unspecified; R10.9 Unspecified abdominal pain; Z79.899 Other long term (current) drug therapy; I10 Essential (primary) hypertension; Z87.19 Personal history of other diseases of the digestive system
CPT/HCPCS: 36000; 36415; 71045; 74176; 76770; 80053; 81025; 82150; 83516; 83605; 83690; 84484; 85025; 85379; 86140; 86225; 86235; 86430; 93005; 93041; 93268; 96360; 96374; 96375; 96376; 99285; G0378; U0003; J1956; J2270; J2920; A9270-GY

== ENCOUNTER 2021-04-11 18:58 | Emergency (ER) | payer OTHER ==
--- NOTE | 2021-04-11 19:49 | ERPHSYRPT ---
- History of Present Illness Time Seen by Provider: 04/11/21 19:40 Source: patient Exam Limitations: no limitations Patient Subjective Stated Complaint: pt states "I cut my finger on glass." Triage Nursing Assessment: pt ambulated into the er; pt is axo 4; c/o laceration; pt has laceration to rt middle finger at first knuckle; laceration measures 1.2 cm; pt states 6/10 pain to rt middle finger; laceration has minimal bleeding; pt states she hit her finger on glass; pt states that she feels the laceration is deep; pt is hypertensive and states that she has been out of her medication for months; pt states that the blood pressure of 204/144 is lower than it has been Physician History: Patient is a 26-year-old female presents to our ED for evaluation of laceration to DIP of right long finger knuckle. Patient states she accidentally cut herself on glass prior to arrival. Tetanus up-to-date. No other injuries reported. Pain is minimal. Upon routine vitals observe patient blood pressure elevated. Patient states she has been off her blood pressure medication for several months. Patient otherwise asymptomatic. Patient voices no other complaints or concerns at this time. Timing/Duration: today Severity: mild Modifying Factors: Improves With: nothing Associated Symptoms: denies symptoms Allergies/Adverse Reactions: Penicillins Allergy (Severe, Verified 04/11/21 19:10) Hives Home Medications: Omeprazole 20 mg PO DAILY 10/23/20 [History] Nebivolol HCl [Bystolic] 20 mg PO DAILY 04/11/21 [History] Hx Tetanus, Diphtheria Vaccination/Date Given: Yes Hx Influenza Vaccination/Date Given: No Hx Pneumococcal Vaccination/Date Given: No Travel Risk - International Travel Have you traveled outside of the country in past 3 weeks: No - Coronavirus Screening Are you exhibiting any of the following symptoms?: No Close contact with a COVID-19 positive Pt in past 14-21 Days: No - Vaccine Status Have you recieved a Covid-19 vaccination: No - Review of Systems Constitutional: No Symptoms, No Fever, No Chills Eyes: No Symptoms Ears, Nose, & Throat: No Symptoms Respiratory: No Symptoms, No Cough, No Dyspnea Cardiac: No Symptoms, No Chest Pain, No Edema, No Syncope Abdominal/Gastrointestinal: No Symptoms, No Abdominal Pain, No Nausea, No Vom iting, No Diarrhea Genitourinary Symptoms: No Symptoms, No Dysuria Musculoskeletal: No Symptoms, No Back Pain, No Neck Pain Skin: No Symptoms, No Rash Neurological: No Symptoms, No Dizziness, No Focal Weakness, No Sensory Changes Psychological: No Symptoms Endocrine: No Symptoms Hematologic/Lymphatic: No Symptoms Immunological/Allergic: No Symptoms All Other Systems: Reviewed and Negative - Past Medical History Pertinent Past Medical History: Yes Neurological History: No Pertinent History ENT History: No Pertinent History Cardiac History: Hypertension Respiratory History: No Pertinent History Endocrine Medical History: No Pertinent History Musculoskeletal History: Arthritis GI Medical History: Colitis, Crohns Disease, GERD History: Other Psycho-Social History: Anxiety, Depression Female Reproductive Disorders: Endometriosis, Pelvic Inflammatory Disease Other Medical History: PAST DX OF STAGE I KIDNEY FAILURE. 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 - Social History Smoking Status: Never smoker Exposure to second hand smoke: Yes Drug Use: none Patient Lives Alone: No - Female History Hx Now: No - Nursing Vital Signs Nursing Vital Signs: Initial Vital Signs Temperature 97.9 F 04/11/21 19:11 Pulse Rate 111 H 04/11/21 19:11 Respiratory Rate 18 04/11/21 19:11 Blood Pressure 204/144 04/11/21 19:11 O2 Sat by Pulse Oximetry 99 04/11/21 19:11 Pain Scale Pain Intensity 6 - Physical Exam General Appearance: no apparent distress, alert Eye Exam: PERRL/EOMI, eyes nml inspection Ears, Nose, Throat Exam: normal ENT inspection, TMs normal, pharynx normal, moist mucous membranes Neck Exam: normal inspection, non-tender, supple, full range of motion Respiratory Exam: normal breath sounds, lungs clear, No respiratory distress Cardiovascular Exam: regular rate/rhythm, normal heart sounds, normal peripheral pulses Gastrointestinal/Abdomen Exam: soft, normal bowel sounds, No tenderness, No mass Back Exam: normal inspection, normal range of motion, No CVA tenderness, No vertebral tenderness Extremity Exam: normal inspection, normal range of motion, pelvis stable, other (There is a 1.2 cm laceration just superficial to the right long finger DIP joint. No invasion of the joint. No injury to the extensor mechanism of the involved finger. Lacerations on the dorsal aspect. Extremities neurovascular intact distally. Compartments are soft. Cap refill less than 2 sec) Neurologic Exam: alert, oriented x 3, cooperative, normal mood/affect, nml cerebellar function, nml station & gait, sensation nml, No motor deficits Skin Exam: normal color, warm, dry, No rash Lymphatic Exam: No adenopathy SpO2 Interpretation: normal SpO2: 99 O2 Delivery: Room Air - Course Nursing assessment & vital signs reviewed: Yes Ordered Tests: Active Orders 24 hr Category Date Time Status AMA [Release AMA] OM.NOW Care 04/11/21 19:55 Active Medication Summary Discontinued Medications Generic Name Dose Route Start Last Admin Trade Name Zach PRN Reason Stop Dose Admin Acetaminophen 975 mg 04/11/21 19:50 04/11/21 20:07 Tylenol 325 Mg PO 04/11/21 19:51 975 mg STAT ONE Administration Acetaminophen Confirm 04/11/21 20:06 Tylenol 325 Mg Administered 04/11/21 20:07 Dose 975 mg .ROUTE .[employer]-MED ONE - Progress Progress: improved Progress Note: Patient's laceration was repaired using Dermabond and Steri-Strips. A splint was applied. Patient declined sutures. Patient blood pressure was observed to be elevated. Patient states her blood pressure is chronically elevated. I advised a work-up and treatment possible admission for blood pressure control. Patient declined. Patient states that her blood pressure has been elevated for some time and that she will follow-up with her primary care doctor. Patient is of sound mind. Patient is appropriate to make informed and independent medical decisions. Patient understands that leaving AGAINST MEDICAL ADVICE can result in delayed diagnosis, increased risk of morbidity, mortality, short and long-term disability including . In spite of these risks, patient has decided to leave AGAINST MEDICAL ADVICE. Patient understands that she may return to our ED at any point if he or she reconsiders. Patient agrees to follow-up with her primary care doctor within 48 hours for reevaluation. Patient voices no other complaints or concerns at this time. We will release patient AGAINST MEDICAL ADVICE per their request. 04/11/21 19:57 04/11/21 20:12 Counseled pt/family regarding: diagnosis, need for follow-up - Departure Departure Disposition: AMA Clinical Impression: Laceration, Hypertensive urgency Condition: Stable Critical Care Time: No Referrals: JOANNE BAL MD [Primary Care Provider] - Additional Instructions: Discharge/Care Plan SONNY OROPEZA was seen on 04/11/21 in the Emergency Room. The patient was counseled regarding Diagnosis,Lab results, Imaging studies, need for follow up and when to return to the Emergency Room. Prescriptions given: Discharge Note I have spoken with the patient and/or caregivers. I have explained the patient's condition, diagnosis and treatment plan based on the information available to me at this time. I have answered the patient's and/or caregiver's questions and addressed any concerns. The patient and/or caregivers have as good understanding of the patient's diagnosis, condition and treatment plan as can be expected at this point. The vital signs have been stable. The patient's condition is stable and appropriate for discharge from the emergency department. The patient will pursue further outpatient evaluation with the primary care physician or other designated or consulting physician as outlined in the discharge instructions. The patient and/or caregivers are agreeable to this plan of care and follow-up instructions have been explained in detail. The patient and/or caregivers have received these instruction. The patient/and or caregivers are aware that any significant change in condition or worsening of symptoms should prompt an immediate return to this or the closest emergency department or call 911.
[2021-04-11] MEDS ORDERED: TYLENOL 325 MG PO ONE (19:50)
[2021-04-11] MEDS ORDERED: TYLENOL 325 MG ONE (20:06)
[2021-04-11 20:28] VITALS: BP 170/137; PULSE 108; O2SAT 98
== END 2021-04-11 20:30 | disposition home or self-care (01) ==
LOC: ED 18:58
DX: S61.212A Laceration without foreign body of right middle finger without damage to nail, initial encounter (principal); W25.XXXA Contact with sharp glass, initial encounter; I16.0 Hypertensive urgency
CPT/HCPCS: 12001; 99283; A9270-GY

== ENCOUNTER 2021-07-16 11:59 | Emergency (ER) | payer OTHER ==
[2021-07-16 12:35] VITALS: BP 134/78; PULSE 78; O2SAT 97
[2021-07-16] MEDS ORDERED: TORAdol 30 mg Injection IM ONE (12:46)
[2021-07-16] MEDS ORDERED: TORAdol 30 mg Injection ONE (12:49)
--- NOTE | 2021-07-16 12:52 | ERPHSYRPT ---
- History of Present Illness Source: patient Exam Limitations: no limitations Patient Subjective Stated Complaint: pt here for possible infection to incison site right foot, she had surgery on Triage Nursing Assessment: pt has screws and rods external to right foot, with old dried blood dressing Physician History: 26 yo wf s/p ORIF of R ankle at [facility] on 07/12/21 present w pain/mild bleeding from pin sites. Pt denies fever and has moderate pain. 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 Method of Injury: other (Running) Occurred: other (07/12/21) Quality: aching Severity of Pain-Max: moderate Severity of Pain-Current: moderate Lower Extremities Pain: ankle: right Modifying Factors: Improves With: movement Associated Symptoms: unable to bear weight Allergies/Adverse Reactions: Penicillins Allergy (Severe, Verified 07/16/21 12:18) Hives Home Medications: Omeprazole 20 mg PO DAILY 10/23/20 [History] Hx Tetanus, Diphtheria Vaccination/Date Given: Yes Hx Influenza Vaccination/Date Given: No Hx Pneumococcal Vaccination/Date Given: No Immunizations Up to Date: Yes Travel Risk - International Travel Have you traveled outside of the country in past 3 weeks: No - Coronavirus Screening Are you exhibiting any of the following symptoms?: No Close contact with a COVID-19 positive Pt in past 14-21 Days: No - Vaccine Status Have you recieved a Covid-19 vaccination: No - Review of Systems Constitutional: No Symptoms Eyes: No Symptoms Ears, Nose, & Throat: No Symptoms Respiratory: No Symptoms Cardiac: No Symptoms Abdominal/Gastrointestinal: No Symptoms Genitourinary Symptoms: No Symptoms Skin: No Symptoms Neurological: No Symptoms Psychological: No Symptoms Endocrine: No Symptoms Hematologic/Lymphatic: No Symptoms Immunological/Allergic: No Symptoms - Past Medical History Pertinent Past Medical History: Yes Neurological History: No Pertinent History ENT History: No Pertinent History Cardiac History: Hypertension Respiratory History: No Pertinent History Endocrine Medical History: No Pertinent History Musculoskeletal History: Arthritis GI Medical History: Colitis, Crohns Disease, GERD History: Other Psycho-Social History: Anxiety, Depression Female Reproductive Disorders: Endometriosis, Pelvic Inflammatory Disease Other Medical History: PAST DX OF STAGE I KIDNEY FAILURE. 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 - Social History Smoking Status: Never smoker Exposure to second hand smoke: Yes Drug Use: none Patient Lives Alone: No Significant Family History: no pertinent family hx - Female History Hx Last Menstrual Period: last month Hx Now: No - Nursing Vital Signs Nursing Vital Signs: Initial Vital Signs Temperature 97.2 F 07/16/21 12:00 Pulse Rate 78 07/16/21 12:00 Respiratory Rate 18 07/16/21 12:00 Blood Pressure 134/78 07/16/21 12:00 O2 Sat by Pulse Oximetry 97 07/16/21 12:00 Pain Scale Pain Intensity 8 WNL - Physical Exam General Appearance: no apparent distress Eyes, Ears, Nose, Throat Exam: normal ENT inspection Neck Exam: normal inspection, non-tender Cardiovascular/Respiratory Exam: normal breath sounds, regular rate/rhythm, heart sounds normal, no respiratory distress Gastrointestinal/Abdominal Exam: non-tender Back Exam: normal inspection Hips Exam: bilateral: non-tender, normal inspection, normal range of motion, no evidence of injury Legs Exam: bilateral leg: non-tender, normal inspection, normal range of motion Knees Exam: bilateral knee: non-tender, normal inspection, normal range of motion, no evidence of injury Ankle Exam: right ankle: other (ORIF appears intact/No active bleeding but some dry blood on bandages/Good pedal pulse, distal sensation, and capillary return) Foot Exam: right foot: swelling (Mild edema of R foot/NTTP/Good pedal pulse, distal sensation, and capillary return) Neuro/Tendon Exam: normal sensation, normal motor functions, normal tendon functions, responds to pain Mental Status Exam: alert, oriented x 3, cooperative Skin Exam: normal color, warm, dry SpO2 Interpretation: normal SpO2: 97 O2 Delivery: Room Air - Course Nursing assessment & vital signs reviewed: Yes Ordered Tests: Medication Summary Discontinued Medications Generic Name Dose Route Start Last Admin Trade Name Freq PRN Reason Stop Dose Admin Ketorolac Tromethamine 30 mg 07/16/21 12:46 07/16/21 12:50 Toradol 30 Mg Injection IM 07/16/21 12:47 30 mg STAT ONE Administration Ketorolac Tromethamine Confirm 07/16/21 12:49 Toradol 30 Mg Injection Administered 07/16/21 12:50 Dose 30 mg .ROUTE .STK-MED ONE - Progress Progress Note: 07/16/21 12:53 30mg IM Toradol 07/16/21 17:29 Pt to f/u w orthopedic surgeon in AM Counseled pt/family regarding: diagnosis, need for follow-up - Departure Departure Disposition: Home Clinical Impression: Postoperative examination Condition: Stable Critical Care Time: No Referrals: JOANNE BAL MD [Primary Care Provider] - Additional Instructions: Follow up with your surgeon KERRI Continue with post-op discharge orders No weight bearing Return to ER as needed
== END 2021-07-16 13:04 | disposition home or self-care (01) ==
LOC: ED 11:59
DX: Z98.890 Other specified postprocedural states (principal)
CPT/HCPCS: 96372; 99283; J1885

== ENCOUNTER 2021-08-05 17:19 | Emergency (ER) | payer OTHER ==
[2021-08-05 18:00] LABS: Absolute Neutrophil Ct (ANC) 9.58 (1.4-6.9); Basophil (Absolute #) 0 (0-0.4); Eosinophil % 0.1 % (0.00-5.0); Eosinophil (Absolute #) 0.02 (0-0.5); Hematocrit 29.4 % (35-47); Lymphocyte (Absolute #) 2.35 (1.0-4.6); Lymphocytes % 17.3 % (24.0-44.0); Mean Cell Volume 91.6 fl (78-100); Mean Corpuscular Hgb Concent. 30.6 g/dl (32-36); Monocyte (Absolute #) 1.63 (0.0-1.3); Neutrophil % 70.6 % (36.0-66.0); Red Blood Count 3.21 M/mm3 (4.1-5.4); Red Cell Distribution Width 14.4 % (11.5-14.0); White Blood Count 13.6 K/mm3 (4.0-10.5)
[2021-08-05 18:04] LABS: Platelet Count 1071 K/mm3 (150-450)
--- NOTE | 2021-08-05 18:05 | ERPHSYRPT ---
- History of Present Illness Time Seen by Provider: 08/05/21 18:02 Source: patient Exam Limitations: no limitations Patient Subjective Stated Complaint: R lower leg pain Triage Nursing Assessment: pt to ED c/o R lower leg pain 06/15 r/t surgery 07/13. pt has external fixation in place since 07/13. states she has felt ill and been in bed for 3-4 days with foot elevated and is cleaning area daily but has noticed increase in swelling and pain. has been on bactrim for 2 weeks for cellulitis in area as prescribed by surgeon. surgery was 07/13/21 at [facility] by Dr. Alvarez. Physician History: t to ED c/o R lower leg pain 06/15 r/t surgery 07/13/21. pt has external fixation in place since 07/13. states she has felt ill and been in bed for 3-4 days with foot elevated and is cleaning area daily but has noticed increase in swelling and pain. has been on bactrim for 2 weeks for cellulitis in area as prescribed by surgeon. surgery was 07/13/21 at [facility] by Dr. Alvarez. Patient denies any fever chills nausea vomiting. Severity of Pain-Max: moderate Severity of Pain-Current: moderate Lower Extremities Pain: leg: right (redness, hardware in place) Modifying Factors: Improves With: nothing Associated Symptoms: unable to bear weight Allergies/Adverse Reactions: Penicillins Allergy (Severe, Verified 07/16/21 12:18) Hives Home Medications: Omeprazole 20 mg PO DAILY 10/23/20 [History] Hx Tetanus, Diphtheria Vaccination/Date Given: Yes Hx Influenza Vaccination/Date Given: No Hx Pneumococcal Vaccination/Date Given: No Immunizations Up to Date: No Travel Risk - International Travel Have you traveled outside of the country in past 3 weeks: No - Coronavirus Screening Are you exhibiting any of the following symptoms?: No Close contact with a COVID-19 positive Pt in past 14-21 Days: No - Vaccine Status Have you recieved a Covid-19 vaccination: No - Review of Systems Constitutional: No Fever, No Chills Eyes: No Symptoms Ears, Nose, & Throat: No Symptoms Respiratory: No Cough, No Dyspnea Cardiac: No Chest Pain, No Edema, No Syncope Abdominal/Gastrointestinal: No Abdominal Pain, No Nausea, No Vomiting, No Diarrhea Genitourinary Symptoms: No Dysuria Musculoskeletal: Other (redness starts from right ankle to mid leg), No Back Pain, No Neck Pain Skin: No Rash Neurological: No Dizziness, No Focal Weakness, No Sensory Changes Psychological: No Symptoms Endocrine: No Symptoms All Other Systems: Reviewed and Negative - Past Medical History Pertinent Past Medical History: Yes Neurological History: No Pertinent History ENT History: No Pertinent History Cardiac History: Hypertension Respiratory History: No Pertinent History Endocrine Medical History: No Pertinent History Musculoskeletal History: Arthritis GI Medical History: Colitis, Crohns Disease, GERD History: Other Psycho-Social History: Anxiety, Depression Female Reproductive Disorders: Endometriosis, Pelvic Inflammatory Disease Other Medical History: PAST DX OF STAGE I KIDNEY FAILURE. 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 R ankle external fixation 07/13/21. - Social History Smoking Status: Never smoker Exposure to second hand smoke: Yes Drug Use: none Patient Lives Alone: No Significant Family History: no pertinent family hx - Female History Hx Last Menstrual Period: last month Hx Now: No (tubal) - Nursing Vital Signs Nursing Vital Signs: Initial Vital Signs Temperature 98.2 F 08/05/21 17:25 Pulse Rate 105 H 08/05/21 17:25 Respiratory Rate 18 08/05/21 17:25 Blood Pressure 139/91 08/05/21 17:25 O2 Sat by Pulse Oximetry 96 08/05/21 17:25 Pain Scale Pain Intensity 6 - Physical Exam General Appearance: alert Eyes, Ears, Nose, Throat Exam: moist mucous membranes Neck Exam: non-tender, supple Cardiovascular/Respiratory Exam: chest non-tender, normal breath sounds, regular rate/rhythm, no respiratory distress Gastrointestinal/Abdominal Exam: non-tender, guarding Back Exam: normal inspection, No vertebral tenderness Hips Exam: bilateral: non-tender Legs Exam: right leg: pain, soft tissue tenderness, swelling Ankle Exam: right ankle: limited range of motion, pain, soft tissue tenderness, swelling Neuro/Tendon Exam: normal sensation, normal motor functions Mental Status Exam: alert, oriented x 3, cooperative Skin Exam: normal color, warm, dry SpO2: 96 - Course Nursing assessment & vital signs reviewed: Yes - Radiology Exams Lower Leg X-ray Interpretation: Reviewed by me Ordered Tests: Active Orders 24 hr Category Date Time Status LOWER LEG Stat Exams 08/05/21 17:37 Taken CBC W DIFF Stat Lab 08/05/21 17:57 Completed CMP Stat Lab 08/05/21 17:57 Completed Urine Triage Profile Stat Lab 08/05/21 17:37 Ordered Medication Summary Generic Name Dose Route Start Last Admin Trade Name Freq PRN Reason Stop Dose Admin Levofloxacin/Dextrose 500 mg in 100 mls @ 100 mls/hr 08/05/21 18:41 Levofloxacin 500mg/100ml D5w IV 08/05/21 19:40 STAT STA Discontinued Medications Generic Name Dose Route Start Last Admin Trade Name Freq PRN Reason Stop Dose Admin Ketorolac Tromethamine 30 mg 08/05/21 18:44 Ketorolac Tromethamine 30 Mg/Ml Inj IV 08/05/21 18:45 STAT ONE Lab/Rad Data: Laboratory Result Diagrams 08/05/21 17:57 08/05/21 17:57 Laboratory Results 08/05/21 08/05/21 Range/Units 17:57 17:57 WBC 13.6 H (4.0-10.5) K/mm3 RBC 3.21 L (4.1-5.4) M/mm3 Hgb 9.0 L (12.0-16.0) gm/dl Hct 29.4 L (35-47) % MCV 91.6 (78-100) fl MCH 28.0 (26-32) pg MCHC 30.6 L (32-36) g/dl RDW 14.4 H (11.5-14.0) % Plt Count 1071 H* (150-450) K/mm3 MPV 8.0 (7.5-11.0) fl Gran % 70.6 H (36.0-66.0) % Eos # (Auto) 0.02 (0-0.5) Absolute Lymphs (auto) 2.35 (1.0-4.6) Absolute Monos (auto) 1.63 H (0.0-1.3) Lymphocytes % 17.3 L (24.0-44.0) % Monocytes % 12.0 (0.0-12.0) % Eosinophils % 0.1 (0.00-5.0) % Basophils % 0.0 (0.0-0.4) % Absolute Granulocytes 9.58 H (1.4-6.9) Basophils # 0 (0-0.4) Sodium 140 (137-145) mmol/L Potassium 4.8 (3.5-5.1) mmol/L Chloride 99 (98-107) mmol/L Carbon Dioxide 31 H (22-30) mmol/L Anion Gap 15.3 H (5-15) MEQ/L BUN 19 H (7-17) mg/dL Creatinine 1.44 H (0.52-1.04) mg/dL Estimated GFR 46.1 ML/MIN Glucose 96 (74-106) mg/dL Calcium 9.6 (8.4-10.2) mg/dL Total Bilirubin 0.30 (0.2-1.3) mg/dL AST 35 (14-36) U/L ALT 44 H (0-35) U/L Alkaline Phosphatase 147 H (38-126) U/L Serum Total Protein 8.4 H (6.3-8.2) g/dL Albumin 4.2 (3.5-5.0) g/dL - Departure Departure Disposition: Home Clinical Impression: Cellulitis and abscess of right leg Condition: Stable Critical Care Time: No Referrals: LUIS FERNANDO PANG [Primary Care Provider] - Follow Up with PCP/3 days (follow up with your Orthopedic surgeon dakota.) Instructions: Cellulitis (Skin Infection), Adult (DC) Additional Instructions: Discharge/Care Plan SONNY OROPEZA was seen on 08/05/21 in the Emergency Room. The patient was counseled regarding Diagnosis,Lab results, Imaging studies, need for follow up and when to return to the Emergency Room. Prescriptions given: Discharge Note I have spoken with the patient and/or caregivers. I have explained the patient's condition, diagnosis and treatment plan based on the information available to me at this time. I have answered the patient's and/or caregiver's questions and addressed any concerns. The patient and/or caregivers have as good understanding of the patient's diagnosis, condition and treatment plan as can be expected at this point. The vital signs have been stable. The patient's condition is stable and appropriate for discharge from the emergency department. The patient will pursue further outpatient evaluation with the primary care physician or other designated or consulting physician as outlined in the discharge instructions. The patient and/or caregivers are agreeable to this plan of care and follow-up instructions have been explained in detail. The patient and/or caregivers have received these instruction. The patient/and or caregivers are aware that any significant change in condition or worsening of symptoms should prompt an immediate return to this or the closest emergency department or call 911. JOHNNASONNY BERNSTEIN was seen on 08/05/21 n the Emergency Room. At that time you were treated for an emergent condition, during your visit Laboratory, Radiology and/or other procedures may have been ordered. It is very important that you follow-up with your Primary Care Physician LUIS FERNANDO PANG within the next 24-48 hours to review your Emergency Room visit and the final results of testing that was ordered. Some test results such as Urine Cultures, Blood Cultures, and other cultures if ordered will not be finalized for 24-48 hours. If you do not have a Primary Care Provider please call the medical records department at [phone] to obtain a copy of your results or you may sign into our patient portal to obtain these results by visiting us @ [email or web address] and completing the following steps: 1. Click on the Patient Portal link 2. Click the Patient Self Enrollment Link to complete the enrollment form and entering your 3. Once the enrollment form is completed you will receive an email with a temporary ID and password at the email address you provided. 4. Next choose a user name and password. Your user name must be at least 4 characters long and your password must be at least 4 characters long. 5. Choose a security question from the list and provide your answer to the question. If you already have signed into the Health Portal you may access your Health Care Information 28/04 by the following steps: 1. Login to our website @ [email or web address] 2. Enter your original user name and password. FAQS The [facility] Health Portal is an online tool that contains your Lab Results, Radiology Reports, Visit History, Discharge Instructions and Health Summary Lab and Radiology Results will not be available for 72 hours on the portal. The Portal is a secure site, passwords are encryted and URLs are re-written so they cannot be copied and pasted. You and authorized family members are the only ones who can access your Portal. Also there is a timeout feature that protects your information if you leave the Portal page open. If you have technical difficulty please use the Contact Us link on the page this will allow you to submit any questions you have regarding the Portal or you may contact the Medical Record Department at [phone]. You have appears to have infection around the area where you have a hardware put on for your fracture. We have given you IV antibiotic in the emergency room and we have called in oral antibiotic for you but it is very important that you go and see your orthopedic surgeon 1st thing in the morning tomorrow and walking to his office and let him check the hardware for your fracture. It is also important that you follow-up with your primary care physician in next 2 to 3 days. Take your antibiotic as prescribed. Prescriptions: Levofloxacin [Levaquin 500 MG Tablet] 500 mg PO QAM #10 tablet
[2021-08-05 18:12] LABS: ALBUMIN 4.2 g/dL (3.5-5.0); ANION GAP 15.3 MEQ/L (5-15); BILIRUBIN,TOTAL 0.3 mg/dL (0.2-1.3); Calcium 9.6 mg/dL (8.4-10.2); Creatinine 1 1.44 mg/dL (0.52-1.04); EST GLOMERULAR FILTRATION RATE 46.1 ML/MIN; Potassium 4.8 mmol/L (3.5-5.1); Total Protein 8.4 g/dL (6.3-8.2)
[2021-08-05] MEDS ORDERED: Levofloxacin 500MG/100ML D5W 500 MG/100 ML BAG IV STA (18:41)
[2021-08-05] MEDS ORDERED: TORAdol 30 mg Injection IV ONE (18:44)
[2021-08-05] MEDS ORDERED: TORAdol 30 mg Injection ONE (19:04)
[2021-08-05] MEDS ORDERED: Levofloxacin 500MG/100ML D5W 500 MG/100 ML BAG IV ONE (19:04)
[2021-08-05 20:23] VITALS: BP 146/76; PULSE 88; O2SAT 97
--- NOTE | 2021-08-06 08:37 | XRAY ---
Indication: Pain, swelling, and erythema. Comparison: None 2 view right lower leg demonstrates resection distal fibula and external tibia/ankle fixation device. No acute fracture, suspicious bony lesions, or soft tissue abnormalities.
== END 2021-08-05 20:24 | disposition home or self-care (01) ==
LOC: ED 17:19
DX: L03.115 Cellulitis of right lower limb (principal); L02.415 Cutaneous abscess of right lower limb
CPT/HCPCS: 36415; 73590; 80053; 85025; 96374; 99284; J1885; J1956

== ENCOUNTER 2022-01-02 22:37 | Emergency (ER) | payer OTHER ==
[2022-01-02] MEDS ORDERED: Sodium Chloride 0.9% 1000 ML 1,000 ML IV STA (22:49)
--- NOTE | 2022-01-02 23:07 | ERPHSYRPT ---
- History of Present Illness Time Seen by Provider: 01/02/22 23:06 Source: patient, family Exam Limitations: no limitations Patient Subjective Stated Complaint: took double amt of seroquil instead of my b/p meds Triage Nursing Assessment: pt took her night time seroquil medication. Pt then went to get her night time high blood pressure medication bottle, and accidentally grabbed her seroquil med bottle, and took those meds again. The seroquil and her metoprolol meds look exactly the same. Pt took a total of seroquil 800 mg tonight at 2100. Pt is alert and oriented, cooperative. Physician History: took double amt of seroquil instead of my b/p meds took her night time seroquil medication. Pt then went to get her night time high blood pressure medication bottle, and accidentally grabbed her seroquil med bottle, and took those meds again. The seroquil and her metoprolol meds look exactly the same. Pt took a total of seroquil 800 mg tonight at 2100. Timing/Duration: today Associated Symptoms: denies symptoms Allergies/Adverse Reactions: Penicillins Allergy (Severe, Verified 01/02/22 23:01) Hives Home Medications: Metoprolol Succinate 50 mg [Toprol Xl 50 MG] 50 mg PO BID 01/02/22 [Histo ry] Omeprazole 20 mg PO DAILY 01/02/22 [History] Quetiapine Fumarate [Seroquel] 400 mg PO BID 01/02/22 [History] Hx Tetanus, Diphtheria Vaccination/Date Given: Yes Hx Influenza Vaccination/Date Given: No Hx Pneumococcal Vaccination/Date Given: No Immunizations Up to Date: Yes Travel Risk - International Travel Have you traveled outside of the country in past 3 weeks: No - Coronavirus Screening Are you exhibiting any of the following symptoms?: No Close contact with a COVID-19 positive Pt in past 14-21 Days: No - Vaccine Status Have you recieved a Covid-19 vaccination: No - Review of Systems Constitutional: No Fever, No Chills Eyes: No Symptoms Ears, Nose, & Throat: No Symptoms Respiratory: No Cough, No Dyspnea Cardiac: No Chest Pain, No Edema, No Syncope Abdominal/Gastrointestinal: No Abdominal Pain, No Nausea, No Vomiting, No Diarrhea Genitourinary Symptoms: No Dysuria Musculoskeletal: No Back Pain, No Neck Pain Skin: No Rash Neurological: No Dizziness, No Focal Weakness, No Sensory Changes Psychological: No Symptoms Endocrine: No Symptoms All Other Systems: Reviewed and Negative - Past Medical History Pertinent Past Medical History: Yes Neurological History: No Pertinent History ENT History: No Pertinent History Cardiac History: Hypertension Respiratory History: No Pertinent History Endocrine Medical History: No Pertinent History Musculoskeletal History: Arthritis GI Medical History: Colitis, Crohns Disease, GERD History: Other Psycho-Social History: Anxiety, Depression Female Reproductive Disorders: Endometriosis, Pelvic Inflammatory Disease Other Medical History: PAST DX OF STAGE I KIDNEY FAILURE. 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 R ankle external fixation 07/13/21. 7 Surgeries total to Rt lower leg - Social History Smoking Status: Never smoker Exposure to second hand smoke: Yes Drug Use: none Patient Lives Alone: No Significant Family History: no pertinent family hx - Female History Hx Last Menstrual Period: 01/01/22 Hx Now: No - Nursing Vital Signs Nursing Vital Signs: Initial Vital Signs Temperature 98.2 F 01/02/22 22:38 Pulse Rate 100 H 01/02/22 22:38 Respiratory Rate 18 01/02/22 22:38 Blood Pressure 158/109 01/02/22 22:38 O2 Sat by Pulse Oximetry 98 01/02/22 22:38 Pain Scale Pain Intensity 7 - Physical Exam General Appearance: no apparent distress, alert Eye Exam: PERRL/EOMI, eyes nml inspection Ears, Nose, Throat Exam: normal ENT inspection, TMs normal, pharynx normal, moist mucous membranes Neck Exam: normal inspection, non-tender, supple, full range of motion Respiratory Exam: normal breath sounds, lungs clear, No respiratory distress Cardiovascular Exam: regular rate/rhythm, normal heart sounds, normal peripheral pulses Gastrointestinal/Abdomen Exam: soft, normal bowel sounds, No tenderness, No mass Back Exam: normal inspection, normal range of motion, No CVA tenderness, No vertebral tenderness Extremity Exam: normal inspection, normal range of motion, pelvis stable Neurologic Exam: alert, oriented x 3, cooperative, normal mood/affect, nml cerebellar function, nml station & gait, sensation nml, No motor deficits Skin Exam: normal color, warm, dry, No rash Lymphatic Exam: No adenopathy SpO2: 98 - Course Nursing assessment & vital signs reviewed: Yes Ordered Tests: Active Orders 24 hr Category Date Time Status EKG-ER Only STAT Care 01/02/22 22:49 Active CBC W DIFF Stat Lab 01/02/22 23:10 Completed CMP Stat Lab 01/02/22 23:10 Completed ETHYL ALCOHOL Stat Lab 01/02/22 23:10 Completed Urine Triage Profile Stat Lab 01/02/22 23:15 Completed Medication Summary Discontinued Medications Generic Name Dose Route Start Last Admin Trade Name Freq PRN Reason Stop Dose Admin Sodium Chloride 1,000 mls @ 999 mls/hr 01/02/22 22:49 01/02/22 23:11 Sodium Chloride 0.9% 1000 Ml IV 01/02/22 23:49 999 mls/hr .Q1H1M STA Administration Sodium Chloride Confirm 01/02/22 23:09 Sodium Chloride 0.9% 1000 Ml Administered 01/02/22 23:10 Dose 1,000 mls @ ud .ROUTE .STK-MED ONE Lab/Rad Data: Laboratory Result Diagrams 01/02/22 23:10 01/02/22 23:10 Laboratory Results 01/02/22 01/02/22 01/02/22 Range/Units 23:15 23:10 23:10 WBC 6.6 (4.0-10.5) K/mm3 RBC 4.21 (4.1-5.4) M/mm3 Hgb 11.2 L (12.0-16.0) gm/dl Hct 35.3 (35-47) % MCV 83.8 (78-100) fl MCH 26.6 (26-32) pg MCHC 31.7 L (32-36) g/dl RDW 21.7 H (11.5-14.0) % Plt Count 475 H (150-450) K/mm3 MPV 9.3 (7.5-11.0) fl Gran % 41.1 (36.0-66.0) % Eos # (Auto) 0 (0-0.5) Absolute Lymphs (auto) 3.14 (1.0-4.6) Absolute Monos (auto) 0.76 (0.0-1.3) Lymphocytes % 47.4 H (24.0-44.0) % Monocytes % 11.5 (0.0-12.0) % Eosinophils % 0.0 (0.00-5.0) % Basophils % 0.0 (0.0-0.4) % Absolute Granulocytes 2.72 (1.4-6.9) Basophils # 0 (0-0.4) Sodium 140 (137-145) mmol/L Potassium 4.0 (3.5-5.1) mmol/L Chloride 106 (98-107) mmol/L Carbon Dioxide 24 (22-30) mmol/L Anion Gap 14.5 (5-15) MEQ/L BUN 18 H (7-17) mg/dL Creatinine 1.22 H (0.52-1.04) mg/dL Estimated GFR 55.8 ML/MIN Glucose 134 H (74-106) mg/dL Calcium 8.7 (8.4-10.2) mg/dL Total Bilirubin 0.20 (0.2-1.3) mg/dL AST 14 (14-36) U/L ALT 10 (0-35) U/L Alkaline Phosphatase 61 (38-126) U/L Serum Total Protein 6.9 (6.3-8.2) g/dL Albumin 3.8 (3.5-5.0) g/dL Urine Opiates Level NEGATIVE (NEGATIVE) Ur Methadone NEGATIVE (NEGATIVE) Urine Barbiturates NEGATIVE (NEGATIVE) Ur Phencyclidine (PCP) NEGATIVE (NEGATIVE) Urine Amphetamine POSITIVE (NEGATIVE) U Benzodiazepine Level NEGATIVE (NEGATIVE) Urine Cocaine NEGATIVE (NEGATIVE) Urine Marijuana (THC) NEGATIVE (NEGATIVE) Ethyl Alcohol < 10 (0-10) mg/dL - Progress Progress: improved Counseled pt/family regarding: lab results, diagnosis, need for follow-up - Departure Departure Disposition: Home Clinical Impression: Overdose of antipsychotic Qualifiers: Encounter type: initial encounter Injury intent: accidental or unintentional Qualified Code(s): T43.501A - Poisoning by unspecified antipsychotics and neuroleptics, accidental (unintentional), initial encounter Condition: Stable Critical Care Time: No Referrals: LUIS FERNANDO PANG [Primary Care Provider] - Follow up/PCP as directed Instructions: Chemical Ingestion (DC) Additional Instructions: Discharge/Care Plan SONNY OROPEZA was seen on 01/03/22 in the Emergency Room. The patient was counseled regarding Diagnosis,Lab results, Imaging studies, need for follow up and when to return to the Emergency Room. Prescriptions given: Discharge Note I have spoken with the patient and/or caregivers. I have explained the patient's condition, diagnosis and treatment plan based on the information available to me at this time. I have answered the patient's and/or caregiver's questions and addressed any concerns. The patient and/or caregivers have as good understanding of the patient's diagnosis, condition and treatment plan as can be expected at this point. The vital signs have been stable. The patient's condition is stable and appropriate for discharge from the emergency department. The patient will pursue further outpatient evaluation with the primary care physician or other designated or consulting physician as outlined in the discharge instructions. The patient and/or caregivers are agreeable to this plan of care and follow-up instructions have been explained in detail. The patient and/or caregivers have received these instruction. The patient/and or caregivers are aware that any significant change in condition or worsening of symptoms should prompt an immediate return to this or the closest emergency department or call 911. SONNY OROPEZA was seen on 01/03/22 n the Emergency Room. At that time you were treated for an emergent condition, during your visit Laboratory, Radiology and/or other procedures may have been ordered. It is very important that you follow-up with your Primary Care Physician LUIS FERNANDO PANG within the next 24-48 hours to review your Emergency Room visit and the final results of testing that was ordered. Some test results such as Urine Cultures, Blood Cultures, and other cultures if ordered will not be finalized for 24-48 hours. If you do not have a Primary Care Provider please call the medical records department at [phone] ext [phone] to obtain a copy of your results or you may sign into our patient portal to obtain these results by visiting us @ [email or web address] and completing the following steps: 1. Click on the Patient Portal link 2. Click the Patient Self Enrollment Link to complete the enrollment form and e ntering your 3. Once the enrollment form is completed you will receive an email with a temporary ID and password at the email address you provided. 4. Next choose a user name and password. Your user name must be at least 4 characters long and your password must be at least 4 characters long. 5. Choose a security question from the list and provide your answer to the question. If you already have signed into the Health Portal you may access your Health Care Information 28/04 by the following steps: 1. Login to our website @ [email or web address] 2. Enter your original user name and password. FAQS The [facility] Health Portal is an online tool that contains your Lab Results, Radiology Reports, Visit History, Discharge Instructions and Health Summary Lab and Radiology Results will not be available for 72 hours on the portal. The Portal is a secure site, passwords are encryted and URLs are re-written so they cannot be copied and pasted. You and authorized family members are the only ones who can access your Portal. Also there is a timeout feature that protects your information if you leave the Portal page open. If you have technical difficulty please use the Contact Us link on the page this will allow you to submit any questions you have regarding the Portal or you may contact the Medical Record Department at [phone].
[2022-01-02] MEDS ORDERED: Sodium Chloride 0.9% 1000 ML 1,000 ML ONE (23:09)
[2022-01-02 23:20] LABS: Absolute Neutrophil Ct (ANC) 2.72 (1.4-6.9); Basophil (Absolute #) 0 (0-0.4); Eosinophil (Absolute #) 0 (0-0.5); Hematocrit 35.3 % (35-47); Hemoglobin 11.2 gm/dl (12.0-16.0); Lymphocyte (Absolute #) 3.14 (1.0-4.6); Lymphocytes % 47.4 % (24.0-44.0); Mean Cell Volume 83.8 fl (78-100); Mean Corpuscular Hemoglobin 26.6 pg (26-32); Mean Corpuscular Hgb Concent. 31.7 g/dl (32-36); Mean Platelet Volume 9.3 fl (7.5-11.0); Monocyte (Absolute #) 0.76 (0.0-1.3); Monocytes % 11.5 % (0.0-12.0); Neutrophil % 41.1 % (36.0-66.0); Platelet Count 475 K/mm3 (150-450); Red Blood Count 4.21 M/mm3 (4.1-5.4); Red Cell Distribution Width 21.7 % (11.5-14.0); White Blood Count 6.6 K/mm3 (4.0-10.5)
[2022-01-02 23:35] LABS: ALBUMIN 3.8 g/dL (3.5-5.0); ALKALINE PHOSPHATASE 61 U/L (38-126); ANION GAP 14.5 MEQ/L (5-15); BLOOD UREA NITROGEN 18 mg/dL (7-17); CHLORIDE 106 mmol/L (98-107); Calcium 8.7 mg/dL (8.4-10.2); Carbon Dioxide 24 mmol/L (22-30); Creatinine 1 1.22 mg/dL (0.52-1.04); EST GLOMERULAR FILTRATION RATE 55.8 ML/MIN; ETHYL ALCOHOL < 10 mg/dL (0-10); Glucose 134 mg/dL (74-106); SGOT/AST 14 U/L (14-36); SGPT/ALT 10 U/L (0-35); SODIUM 140 mmol/L (137-145); Total Protein 6.9 g/dL (6.3-8.2)
[2022-01-02 23:37] LABS: Amphetamine,Urine POSITIVE (NEGATIVE); Barbiturate,Urine NEGATIVE (NEGATIVE); Benzodiazepine,Urine NEGATIVE (NEGATIVE); Cocaine,Urine NEGATIVE (NEGATIVE); Methadone,Urine NEGATIVE (NEGATIVE); Opiate,Urine NEGATIVE (NEGATIVE); PCP,Urine NEGATIVE (NEGATIVE); THC,Urine NEGATIVE (NEGATIVE)
[2022-01-03 00:06] VITALS: BP 162/120; PULSE 87
[2022-01-03 00:07] VITALS: O2SAT 98
== END 2022-01-03 00:42 | disposition home or self-care (01) ==
LOC: ED 22:37
DX: T43.501A Poisoning by unspecified antipsychotics and neuroleptics, accidental (unintentional), initial encounter (principal); Z79.899 Other long term (current) drug therapy; I10 Essential (primary) hypertension; F41.9 Anxiety disorder, unspecified
CPT/HCPCS: 36000; 36415; 80053; 80307; 85025; 93005; 96360; 99284; G0480

== ENCOUNTER 2022-03-22 23:55 | Emergency (ER) | payer OTHER ==
[2022-03-23 00:18] VITALS: O2SAT 98
[2022-03-23] MEDS ORDERED: Sodium Chloride 0.9% 1000 ML 1,000 ML IV STA (00:25)
[2022-03-23] MEDS ORDERED: Zofran 4 MG/2 ML VIAL IV ONE (00:25)
[2022-03-23] MEDS ORDERED: TORAdol 30 mg Injection IV ONE (00:25)
--- NOTE | 2022-03-23 00:29 | ERPHSYRPT ---
- History of Present Illness Time Seen by Provider: 03/22/22 23:58 Source: patient Exam Limitations: no limitations Patient Subjective Stated Complaint: pt states she has been sick since friday, states that she has had fever, diarrhea, nausea, vomiting, and cough, weakness and lethargy. Triage Nursing Assessment: pt appears pale, states she feels dehydrated, states that her pain in her back is 8 Physician History: 27 years old female presented in the ER with chief complaint of cough fever chills, body aches, nausea with diarrhea and some abdominal pain for the last 5 days with progressive worsening. Patient reports decreased oral intake, feels weak fatigued tired and dehydrated. Was evaluated outpatient and has negative COVID 19 couple of days ago. Timing/Duration: day(s) (5), gradual onset, worse Severity: moderate Associated Symptoms: nausea, vomiting, cough, chills, fever, headaches, loss of appetite, malaise, weakness Allergies/Adverse Reactions: Penicillins Allergy (Severe, Verified 01/02/22 23:01) Hives Home Medications: Metoprolol Succinate 50 mg [Toprol Xl 50 MG] 50 mg PO BID 01/02/22 [History] Omeprazole 20 mg PO DAILY 01/02/22 [History] Quetiapine Fumarate [Seroquel] 400 mg PO BID 01/02/22 [History] Hx Tetanus, Diphtheria Vaccination/Date Given: Yes Hx Influenza Vaccination/Date Given: No Hx Pneumococcal Vaccination/Date Given: No Travel Risk - International Travel Have you traveled outside of the country in past 3 weeks: No - Coronavirus Screening Are you exhibiting any of the following symptoms?: Yes Symptoms: Cough: New Onset, Vomiting/Diarrhea, Headaches/Body Aches/Fatigue - Vaccine Status Have you recieved a Covid-19 vaccination: No - Review of Systems Constitutional: Fever, Chills, Fatigue, Weakness Eyes: No Symptoms Ears, Nose, & Throat: No Symptoms Respiratory: Cough Cardiac: No Symptoms Abdominal/Gastrointestinal: Abdominal Pain, Nausea, Vomiting, Diarrhea Genitourinary Symptoms: No Symptoms Musculoskeletal: Myalgias Skin: No Symptoms Neurological: Headache Psychological: No Symptoms Endocrine: No Symptoms Hematologic/Lymphatic: No Symptoms Immunological/Allergic: No Symptoms - Past Medical History Pertinent Past Medical History: Yes Neurological History: No Pertinent History ENT History: No Pertinent History Cardiac History: Hypertension Respiratory History: No Pertinent History Endocrine Medical History: No Pertinent History Musculoskeletal History: Arthritis GI Medical History: Colitis, Crohns Disease, GERD History: Other Psycho-Social History: Anxiety, Depression Female Reproductive Disorders: Endometriosis, Pelvic Inflammatory Disease Other Medical History: PAST DX OF STAGE I KIDNEY FAILURE. 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 R ankle external fixation 07/13/21. 7 Surgeries total to Rt lower leg - Social History Smoking Status: Never smoker Exposure to second hand smoke: Yes Drug Use: none Patient Lives Alone: No Significant Family History: no pertinent family hx - Female History Hx Last Menstrual Period: 03/09/22 Hx Now: No - Nursing Vital Signs Nursing Vital Signs: Initial Vital Signs Temperature 97.5 F 03/23/22 00:02 Pulse Rate 66 03/23/22 00:02 Respiratory Rate 18 03/23/22 00:02 Blood Pressure 156/104 03/23/22 00:02 O2 Sat by Pulse Oximetry 98 03/23/22 00:02 Pain Scale Pain Intensity 2 - Physical Exam General Appearance: no apparent distress, alert Eye Exam: PERRL/EOMI, eyes nml inspection Ears, Nose, Throat Exam: normal ENT inspection, TMs normal, pharynx normal, moist mucous membranes Neck Exam: normal inspection, non-tender, supple, full range of motion Respiratory Exam: normal breath sounds, lungs clear Cardiovascular Exam: regular rate/rhythm, normal heart sounds Gastrointestinal/Abdomen Exam: soft, normal bowel sounds, No tenderness Back Exam: normal inspection, normal range of motion Extremity Exam: normal inspection, normal range of motion Neurologic Exam: alert, oriented x 3, cooperative Skin Exam: normal color SpO2 Interpretation: normal SpO2: 98 O2 Delivery: Room Air Ordered Tests: Medication Summary Discontinued Medications Generic Name Dose Route Start Last Admin Trade Name Freq PRN Reason Stop Dose Admin Sodium Chloride 1,000 mls @ 999 mls/hr 03/23/22 00:25 03/23/22 02:05 Sodium Chloride 0.9% 1000 Ml IV 03/23/22 01:25 Infused .Q1H1M STA Infusion Sodium Chloride Confirm 03/23/22 00:45 Sodium Chloride 0.9% 1000 Ml Administered 03/23/22 00:46 Dose 1,000 mls @ ud .ROUTE .STK-MED ONE Ketorolac Tromethamine 30 mg 03/23/22 00:25 03/23/22 00:48 Ketorolac Tromethamine 30 Mg/Ml Inj IV 03/23/22 00:26 30 mg STAT ONE Administration Ketorolac Tromethamine Confirm 03/23/22 00:44 Ketorolac Tromethamine 30 Mg/Ml Inj Administered 03/23/22 00:45 Dose 30 mg .ROUTE .STK-MED ONE Ondansetron HCl 4 mg 03/23/22 00:25 03/23/22 00:48 Ondansetron Hcl 4 Mg/2 Ml Vial IV 03/23/22 00:26 4 mg STAT ONE Administration Ondansetron HCl Confirm 03/23/22 00:44 Ondansetron Hcl 4 Mg/2 Ml Vial Administered 03/23/22 00:45 Dose 4 mg .ROUTE .STK-MED ONE Lab/Rad Data: Laboratory Result Diagrams 03/23/22 00:56 03/23/22 00:56 Laboratory Results 03/23/22 03/23/22 03/23/22 Range/Units 00:56 00:56 00:56 WBC (4.0-10.5) x10^3/uL RBC (4.1-5.4) x10^6/uL Hgb (12.0-16.0) g/dL Hct (35-47) % MCV (78-100) fL MCH (26-32) pg MCHC (32-36) g/dL RDW (11.5-14.0) % Plt Count (150-450) x10^3/uL MPV (7.5-11.0) fL Gran % (36.0-66.0) % Immature Gran % (Auto) (0.00-0.4) % Nucleat RBC Rel Count (0.00-0.1) % Eos # (Auto) (0-0.5) x10^3/uL Immature Gran # (Auto) (0.00-0.03) x10^3u/L Absolute Lymphs (auto) (1.0-4.6) x10^3/uL Absolute Monos (auto) (0.0-1.3) x10^3/uL Absolute Nucleated RBC (0.00-0.01) x10^3u/L Lymphocytes % (24.0-44.0) % Monocytes % (0.0-12.0) % Eosinophils % (0.00-5.0) % Basophils % (0.0-0.4) % Absolute Granulocytes (1.4-6.9) x10^3/uL Basophils # (0-0.4) x10^3/uL Sodium 138 (137-145) mmol/L Potassium 4.5 (3.5-5.1) mmol/L Chloride 99 (98-107) mmol/L Carbon Dioxide 33 H (22-30) mmol/L Anion Gap 10.3 (5-15) MEQ/L BUN 27 H (7-17) mg/dL Creatinine 1.36 H (0.52-1.04) mg/dL Estimated GFR 48.9 ML/MIN Glucose 115 H (74-106) mg/dL Calcium 9.1 (8.4-10.2) mg/dL Total Bilirubin 0.40 (0.2-1.3) mg/dL AST 30 (14-36) U/L ALT 16 (0-35) U/L Alkaline Phosphatase 53 (38-126) U/L Serum Total Protein 7.4 (6.3-8.2) g/dL Albumin 3.8 (3.5-5.0) g/dL Lipase 225 (23-300) U/L Urinalys Dipstick Clnc MAIN LAB Urine Color YELLOW (YELLOW) Urine Appearance SLIGHTLY CLOUDY (CLEAR) Urine pH 6.0 (5-6) Ur Specific Cameron >=1.030 (1.005-1.025) POC Urine Protein Conf >=300 (Negative) Urine Ketones NEGATIVE (NEGATIVE) Urine Nitrite NEGATIVE (NEGATIVE) Urine Bilirubin NEGATIVE (NEGATIVE) Urine Urobilinogen 0.2 (0-1) mg/dL Urine Leukocytes NEGATIVE (NEGATIVE) Urine WBC (Auto) 11-15 (0-5) /HPF Urine RBC (Auto) 0-2 (0-2) /HPF U Epithel Cells (Auto) RARE (FEW) /HPF Urine Bacteria (Auto) MANY (NEGATIVE) /HPF Urine RBC NEGATIVE (0-5) Hiram/ul Other Casts (Auto) 2-5 (NEGATIVE) /LPF Urine Mucus (Auto) SLIGHT (NEGATIVE) /HPF Ur Culture Indicated? YES Urine Glucose NEGATIVE (NEGATIVE) mg/dL Influenza Type A Ag NEGATIVE (NEGATIVE) Influenza Type B Ag NEGATIVE (NEGATIVE) RSV (PCR) NEGATIVE (Negative) SARS-CoV-2 (PCR) NEGATIVE (NEGATIVE) 03/23/22 Range/Units 00:56 WBC 6.0 (4.0-10.5) x10^3/uL RBC 3.98 L (4.1-5.4) x10^6/uL Hgb 11.1 L (12.0-16.0) g/dL Hct 35.1 (35-47) % MCV 88.2 (78-100) fL MCH 27.9 (26-32) pg MCHC 31.6 L (32-36) g/dL RDW 16.6 H (11.5-14.0) % Plt Count 636 H (150-450) x10^3/uL MPV 9.6 (7.5-11.0) fL Gran % 55.6 (36.0-66.0) % Immature Gran % (Auto) 0.0 (0.00-0.4) % Nucleat RBC Rel Count 0.0 (0.00-0.1) % Eos # (Auto) 0 (0-0.5) x10^3/uL Immature Gran # (Auto) 0.00 (0.00-0.03) x10^3u/L Absolute Lymphs (auto) 2.03 (1.0-4.6) x10^3/uL Absolute Monos (auto) 0.63 (0.0-1.3) x10^3/uL Absolute Nucleated RBC 0.00 (0.00-0.01) x10^3u/L Lymphocytes % 33.7 (24.0-44.0) % Monocytes % 10.5 (0.0-12.0) % Eosinophils % 0.0 (0.00-5.0) % Basophils % 0.2 (0.0-0.4) % Absolute Granulocytes 3.35 (1.4-6.9) x10^3/uL Basophils # 0.01 (0-0.4) x10^3/uL Sodium (137-145) mmol/L Potassium (3.5-5.1) mmol/L Chloride (98-107) mmol/L Carbon Dioxide (22-30) mmol/L Anion Gap (5-15) MEQ/L BUN (7-17) mg/dL Creatinine (0.52-1.04) mg/dL Estimated GFR ML/MIN Glucose (74-106) mg/dL Calcium (8.4-10.2) mg/dL Total Bilirubin (0.2-1.3) mg/dL AST (14-36) U/L ALT (0-35) U/L Alkaline Phosphatase (38-126) U/L Serum Total Protein (6.3-8.2) g/dL Albumin (3.5-5.0) g/dL Lipase (23-300) U/L Urinalys Dipstick Clnc Urine Color (YELLOW) Urine Appearance (CLEAR) Urine pH (5-6) Ur Specific Cameron (1.005-1.025) POC Urine Protein Conf (Negative) Urine Ketones (NEGATIVE) Urine Nitrite (NEGATIVE) Urine Bilirubin (NEGATIVE) Urine Urobilinogen (0-1) mg/dL Urine Leukocytes (NEGATIVE) Urine WBC (Auto) (0-5) /HPF Urine RBC (Auto) (0-2) /HPF U Epithel Cells (Auto) (FEW) /HPF Urine Bacteria (Auto) (NEGATIVE) /HPF Urine RBC (0-5) Hiram/ul Other Casts (Auto) (NEGATIVE) /LPF Urine Mucus (Auto) (NEGATIVE) /HPF Ur Culture Indicated? Urine Glucose (NEGATIVE) mg/dL Influenza Type A Ag (NEGATIVE) Influenza Type B Ag (NEGATIVE) RSV (PCR) (Negative) SARS-CoV-2 (PCR) (NEGATIVE) - Progress Progress: improved, re-examined Progress Note: She is given fluid bolus along with symptomatic treatment, on reevaluation feeling much better. Baseline lab work-up did not show any acute findings and has chronic renal failure. Symptoms seems to be viral etiology although has a negative swabs. Recommended increase hydration and outpatient follow-up. Discussed signs symptoms of worsening needing return to ER which he seems understanding Counseled pt/family regarding: lab results, diagnosis, need for follow-up - Departure Departure Disposition: Home Clinical Impression: Viral syndrome, Diarrhea, Generalized weakness Condition: Stable Critical Care Time: No Referrals: LUIS FERNANDO PANG [Primary Care Provider] - Follow up/PCP as directed (In 2 days for reevaluation) Instructions: Viral Gastroenteritis, Viral Syndrome (DC) Additional Instructions: Drink plenty of fluids to keep yourself well-hydrated. Take Tylenol/Zofran as needed. Follow-up with primary care for reevaluation. Return to ER for any worsening.
[2022-03-23] MEDS ORDERED: Zofran 4 MG/2 ML VIAL ONE (00:44)
[2022-03-23] MEDS ORDERED: TORAdol 30 mg Injection ONE (00:44)
[2022-03-23] MEDS ORDERED: Sodium Chloride 0.9% 1000 ML 1,000 ML ONE (00:45)
[2022-03-23 00:59] LABS: Absolute Neutrophil Ct (ANC) 3.35 x10^3/uL (1.4-6.9); Basophil (Absolute #) 0.01 x10^3/uL (0-0.4); Eosinophil (Absolute #) 0 x10^3/uL (0-0.5); Hematocrit 35.1 % (35-47); Hemoglobin 11.1 g/dL (12.0-16.0); Lymphocyte (Absolute #) 2.03 x10^3/uL (1.0-4.6); Lymphocytes % 33.7 % (24.0-44.0); Mean Cell Volume 88.2 fL (78-100); Mean Corpuscular Hemoglobin 27.9 pg (26-32); Mean Corpuscular Hgb Concent. 31.6 g/dL (32-36); Mean Platelet Volume 9.6 fL (7.5-11.0); Monocyte (Absolute #) 0.63 x10^3/uL (0.0-1.3); Monocytes % 10.5 % (0.0-12.0); Neutrophil % 55.6 % (36.0-66.0); Platelet Count 636 x10^3/uL (150-450); Red Blood Count 3.98 x10^6/uL (4.1-5.4); Red Cell Distribution Width 16.6 % (11.5-14.0)
[2022-03-23 01:08] VITALS: BP 107/61; PULSE 98
[2022-03-23 01:10] LABS: Appearance SLIGHTLY CLOUDY (CLEAR); Bilirubin NEGATIVE (NEGATIVE); Dipstick done @ ? MAIN LAB; Glucose NEGATIVE (NEGATIVE); Ketones NEGATIVE (NEGATIVE); Nitrite NEGATIVE (NEGATIVE); Protein,Urine Dip >=300 (Negative); RBC NEGATIVE Ery/ul (0-5); Specific Gravity >=1.030 (1.005-1.025); Urobilinogen 0.2 mg/dL (0-1)
[2022-03-23 01:12] LABS: ALBUMIN 3.8 g/dL (3.5-5.0); ANION GAP 10.3 MEQ/L (5-15); BILIRUBIN,TOTAL 0.4 mg/dL (0.2-1.3); Calcium 9.1 mg/dL (8.4-10.2); Creatinine 1 1.36 mg/dL (0.52-1.04); EST GLOMERULAR FILTRATION RATE 48.9 ML/MIN; Potassium 4.5 mmol/L (3.5-5.1); Total Protein 7.4 g/dL (6.3-8.2)
[2022-03-23 01:20] LABS: Bacteria MANY /HPF (NEGATIVE); Epithelial Cells RARE /HPF (FEW); Mucus SLIGHT /HPF (NEGATIVE); RBC 0-2 /HPF (0-2); Urine Cultured Indicated? YES
[2022-03-23 01:39] LABS: INFLUENZA A NEGATIVE (NEGATIVE); INFLUENZA B NEGATIVE (NEGATIVE); RESPIRATORY SYNCTIAL VIRUS NEGATIVE (Negative); SARS-CoV-2 Xpert Express NEGATIVE (NEGATIVE)
--- NOTE | 2022-03-23 07:47 | XRAY ---
Indication: Cough. Comparison: October 23, 2020. Portable chest again demonstrates normal heart and lungs. Bony thorax intact again with mild dextroscoliosis. New nondisplaced healing right humeral head fracture.
== END 2022-03-23 02:07 | disposition home or self-care (01) ==
LOC: ED 23:55
DX: B34.9 Viral infection, unspecified (principal); R19.7 Diarrhea, unspecified; R53.1 Weakness; R05.1 Acute cough; R50.9 Fever, unspecified; M79.10 Myalgia, unspecified site; R11.0 Nausea; I12.9 Hypertensive chronic kidney disease with stage 1 through stage 4 chronic kidney disease, or unspecified chronic kidney disease; N18.1 Chronic kidney disease, stage 1; Z79.899 Other long term (current) drug therapy; Z28.310 Unvaccinated for COVID-19
CPT/HCPCS: 0241U; 36000; 36415; 71045; 80053; 81015; 83690; 85025; 87040; 87086; 96360; 96374; 96375; 99284; 87077; 87186; J1885; J2405

== ENCOUNTER 2023-06-27 14:09 | Emergency (ER) | payer OTHER ==
--- NOTE | 2023-06-27 14:12 | ERPHSYRPT ---
- History of Present Illness Time Seen by Provider: 06/27/23 14:10 Source: patient Exam Limitations: no limitations Physician History: This is a 28-year-old white female who was working on remodeling the home when she was looking up something fell and hit her right eye. Within a short period time she began having redness and swelling. There is a sensation of foreign body in her right eye. She tried rinsing out the site but it only helped briefly and to a minor extent. She presents with redness swelling and tenderness of the right eye Timing/Duration: today Location: right eye Severity: mild (To moderate) Apparent Injury: yes Associated Symptoms: pain, burning, sensitivity to light, redness, matting, foreign body sensation Visual Assistive Devices: None Allergies/Adverse Reactions: Penicillins Allergy (Severe, Verified 06/27/23 14:24) Hives Home Medications: Metoprolol Succinate 50 mg [Toprol Xl 50 MG] 50 mg PO BID 01/02/22 [History] Omeprazole 20 mg PO DAILY 01/02/22 [History] Quetiapine Fumarate [Seroquel] 400 mg PO BID 01/02/22 [History] Hx Tetanus, Diphtheria Vaccination/Date Given: Yes Hx Influenza Vaccination/Date Given: No Hx Pneumococcal Vaccination/Date Given: No Travel Risk - International Travel Have you traveled outside of the country in past 3 weeks: No - Coronavirus Screening Are you exhibiting any of the following symptoms?: No Close contact with a COVID-19 positive Pt in past 14-21 Days: No - Vaccine Status Have you recieved a Covid-19 vaccination: No - Review of Systems Constitutional: No Symptoms Eyes: Eye Pain (Right I), Eye Redness (Right I), Tearing (Right I), Foreign Body Sensation (Right I) Ears, Nose, & Throat: No Symptoms Respiratory: No Symptoms Cardiac: No Symptoms Abdominal/Gastrointestinal: No Symptoms Genitourinary Symptoms: No Symptoms Musculoskeletal: No Symptoms Skin: No Symptoms Neurological: No Symptoms Psychological: No Symptoms Endocrine: No Symptoms Hematologic/Lymphatic: No Symptoms Immunological/Allergic: No Symptoms All Other Systems: Reviewed and Negative - Past Medical History Pertinent Past Medical History: Yes Neurological History: No Pertinent History ENT History: No Pertinent History Cardiac History: Hypertension Respiratory History: No Pertinent History Endocrine Medical History: No Pertinent History Musculoskeletal History: Arthritis GI Medical History: Colitis, Crohns Disease, GERD History: Other Psycho-Social History: Anxiety, Depression Female Reproductive Disorders: Endometriosis, Pelvic Inflammatory Disease Other Medical History: PAST DX OF STAGE I KIDNEY FAILURE. 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 R ankle external fixation 07/13/21. 7 Surgeries total to Rt lower leg - Social History Smoking Status: Never smoker Exposure to second hand smoke: Yes Drug Use: none Patient Lives Alone: No Significant Family History: no pertinent family hx - Nursing Vital Signs Nursing Vital Signs: Initial Vital Signs Pulse Rate 96 H 06/27/23 14:11 Respiratory Rate 18 06/27/23 14:11 Blood Pressure 147/102 06/27/23 14:11 O2 Sat by Pulse Oximetry 96 06/27/23 14:11 Pain Scale Pain Intensity 2 - Physical Exam General Appearance: mild distress, alert, anxiety Eye Exam: right eye: conjunctival inflammation, left eye: normal inspection, bilateral eye: PERRL, EOMI Ears, Nose, Throat Exam: normal ENT inspection, moist mucous membranes Neck Exam: normal inspection, non-tender, supple, full range of motion Respiratory Exam: airway intact, No chest tenderness, No respiratory distress Gastrointestinal Exam: No tenderness Extremity Exam: normal inspection, normal range of motion, pelvis stable Neurologic: alert, oriented x 3, cooperative, 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 There appears to be abrasion at the 11 and 12:00 positions of the right eye/globe. - Course Nursing assessment & vital signs reviewed: Yes Ordered Tests: Active Orders 24 hr Category Date Time Status Eye Patch Application STAT Care 06/27/23 14:26 Ordered Medication Summary Discontinued Medications Generic Name Dose Route Start Last Admin Trade Name Zach PRN Reason Stop Dose Admin Eye Irrigation Solution Confirm 06/27/23 14:20 Sodium/Potassium/Kenji/Magnesium 30 Ml Eye Wash Administered 06/27/23 14:21 Dose 30 ml .ROUTE .STK-MED ONE Fluorescein Sodium Confirm 06/27/23 14:19 Fluorescein Sodium 1 Mg/Strip Strip Administered 06/27/23 14:20 Dose 1 mg OP .STK-MED ONE Tetracaine HCl Confirm 06/27/23 14:19 Tetracaine Hcl/Pf 4 Ml Bottle Administered 06/27/23 14:20 Dose 4 ml OP .STK-MED ONE - Progress Progress: improved, pain not gone completely, re-examined Progress Note: 06/27/23 14:31 This patient's medical issue is 1 of low complexity. Level complexity in the work-up performed is based on review of the patient's past medical history, review of the patient's medication list, review the patient's drug allergy list, history present illness and physical findings on examination. No laboratory data or radiographic studies are necessary in this patient. We did perform fluorescein test after instillation of tetracaine eyedrops into the right eye. There is evidence of corneal abrasion on the right eye. Patient then had erythromycin ointment placed into her right eye. 06/27/23 14:32 I performed a thorough examination of the right eye after tetracaine eyedrops. I did not appreciate any retained foreign body. I looked circumferentially and deep underneath both the upper and lower eyelids. Counseled pt/family regarding: diagnosis, need for follow-up Medical Desision Making - Independent Historian Additional History obtained from: Family - Diagnostic Testing Diagnostic test were ordered, analyzed, and reviewed by me: No - Risk of complications The pt has a mod risk of morbidity or mortality based on: Need for prescription drug management - Departure Departure Disposition: Home Clinical Impression: Corneal abrasion of right eye due to contact lens Condition: Stable Critical Care Time: No Referrals: LUIS FERNANDO PANG [Primary Care Provider] - Follow up/PCP as directed Additional Instructions: Use your medication as prescribed. Follow-up with retail account manager as scheduled date and appointment time. Prescriptions: Hydrocodone/APAP 5/325 [Ames 5/325 mg] 1 each PO Q8H PRN PRN #6 tablet MDD 3 PRN Reason: Pain Prednisone 10 mg [Deltasone 10 mg] 10 mg PO TID #12 tablet Erythromycin Base 3.5 gm [Erythromycin 3.5 GM OPHTH.] 3.5 gm OP QID #1 unit
[2023-06-27] MEDS ORDERED: TETRACAINE 0.5% STERI-UNIT SOL OP ONE (14:19)
[2023-06-27] MEDS ORDERED: Fluor-I-Strip/Ful-Flo OP ONE ×3 (14:19→14:26)
[2023-06-27] MEDS ORDERED: Eye-Stream Solution ONE (14:20)
[2023-06-27 14:24] VITALS: RESP 18; O2SAT 96
[2023-06-27] MEDS ORDERED: Erythromycin 1 GM OP STA (14:26)
[2023-06-27] MEDS ORDERED: TETRACAINE 0.5% STERI-UNIT SOL OP STA ×2 (14:26)
[2023-06-27] MEDS ORDERED: Eye-Stream Solution OP ONE (14:27)
[2023-06-27] MEDS ORDERED: Erythromycin 1 GM ONE (14:28)
[2023-06-27] MEDS ORDERED: NORCO 5/325 MG PO ONE (14:36)
[2023-06-27] MEDS ORDERED: NORCO 5/325 MG ONE (14:38)
[2023-06-27 14:52] VITALS: BP 139/94; PULSE 86
== END 2023-06-27 14:53 | disposition home or self-care (01) ==
LOC: ED 14:09
DX: H18.821 Corneal disorder due to contact lens, right eye (principal); H57.11 Ocular pain, right eye; I10 Essential (primary) hypertension; Z79.891 Long term (current) use of opiate analgesic; Z79.899 Other long term (current) drug therapy; Z28.310 Unvaccinated for COVID-19
CPT/HCPCS: 99282; A9270-GY

== ENCOUNTER 2023-09-27 19:20 | Emergency (ER) | payer OTHER ==
[2023-09-27 19:27] VITALS: RESP 20; TEMP 97.8; O2SAT 95
--- NOTE | 2023-09-27 19:45 | ERPHSYRPT ---
- History of Present Illness Time Seen by Provider: 09/27/23 19:42 Source: patient Exam Limitations: no limitations Patient Subjective Stated Complaint: LEFT KNEE PAIN Triage Nursing Assessment: Pt c/o left knee pain x2 months but it has gotten wor se in the last 2 weeks. Left knee is swollen, left popliteal pulse and left pedal pulse present. Pt is a right BKA approx 3.5 years ago, but got her prosthetic about 6 months ago and things have gotten worse on the left leg since then. Pt has small knot noted to back of left knee. Physician History: c/o left knee pain x2 months but it has gotten worse in the last 2 weeks. Left knee is swollen, Pt is a right BKA approx 3.5 years ago, but got her prosthetic about 6 months ago and things have gotten worse on the left leg since then. Pt has small knot noted to back of left knee Method of Injury: unknown Occurred: other (2 months) Quality: constant Severity of Pain-Max: moderate Severity of Pain-Current: moderate Lower Extremities Pain: knee: left Modifying Factors: Improves With: nothing Associated Symptoms: none Body Map: 1 - pain 2 - below knee amputation Allergies/Adverse Reactions: Penicillins Allergy (Severe, Verified 09/27/23 19:37) Hives Home Medications: Metoprolol Succinate 50 mg [Toprol Xl 50 MG] 50 mg PO DAILY 01/02/22 [History] Omeprazole 20 mg PO DAILY 01/02/22 [History] Quetiapine Fumarate [Seroquel] 100 mg PO HS 01/02/22 [History] Buprenorphine HCl/Naloxone HCl [Suboxone 8 mg-2 mg Sl Film] 20 mg PO DAILY 09/27/23 [History] Clonidine HCl 0.1 mg [Clonidine 0.1 mg Tablet] 0.3 mg PO TID 09/27/23 [History] Gabapentin 800 mg PO TID 09/27/23 [History] Methocarbamol [Robaxin] 1,500 mg PO TID 09/27/23 [History] Ropinirole 2Mg [Requip 2Mg Tab] 2 mg PO HS 09/27/23 [History] Trazodone HCl 150 mg PO HS 09/27/23 [History] hydrOXYzine pamoate [Vistaril] 50 mg PO TID 09/27/23 [History] Hx Tetanus, Diphtheria Vaccination/Date Given: Yes Hx Influenza Vaccination/Date Given: No Hx Pneumococcal Vaccination/Date Given: No Immunizations Up to Date: No Travel Risk - International Travel Have you traveled outside of the country in past 3 weeks: No - Coronavirus Screening Are you exhibiting any of the following symptoms?: No Close contact with a COVID-19 positive Pt in past 14-21 Days: No - Vaccine Status Have you recieved a Covid-19 vaccination: No 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 - Vaccination Dates Dates if Unknown: unk - Review of Systems Constitutional: No Fever, No Chills Eyes: No Symptoms Ears, Nose, & Throat: No Symptoms Respiratory: No Cough, No Dyspnea Cardiac: No Chest Pain, No Edema, No Syncope Abdominal/Gastrointestinal: No Abdominal Pain, No Nausea, No Vomiting, No Diarrhea Genitourinary Symptoms: No Dysuria Musculoskeletal: Joint Swelling (left knee), Other (Right BKA), No Back Pain, No Neck Pain Skin: No Rash Neurological: No Dizziness, No Focal Weakness, No Sensory Changes Psychological: No Symptoms Endocrine: No Symptoms All Other Systems: Reviewed and Negative - Past Medical History Pertinent Past Medical History: Yes Neurological History: No Pertinent History ENT History: No Pertinent History Cardiac History: Hypertension Respiratory History: No Pertinent History Endocrine Medical History: No Pertinent History, Diabetes Type II Musculoskeletal History: Arthritis GI Medical History: Colitis, Crohns Disease, GERD History: Renal Disease, Other Psycho-Social History: Anxiety, Depression Female Reproductive Disorders: Endometriosis, Pelvic Inflammatory Disease Other Medical History: chronic kidney failure, SURGICAL REMOVAL OF BONE IN RIGHT LOWER LEG AND ANKLE, BELOW KNEE AMPUTEE - Past Surgical History Past Surgical History: Yes Neuro Surgical History: No Pertinent History Cardiac: Cardiac Catheterization Respiratory: No Pertinent History Gastrointestinal: No Pertinent History Genitourinary: No Pertinent History Musculoskeletal: Orthopedic Surgery, Other Female Surgical History: Section, Tubal Ligation Other Surgical History: right ankle biopsy, 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 R ankle external fixation 07/13/21. 7 Surgeries total to Rt lower leg, rt BKA - Social History Smoking Status: Never smoker Exposure to second hand smoke: No Drug Use: none Patient Lives Alone: No Significant Family History: no pertinent family hx - Female History Hx Last Menstrual Period: 7 months Hx Now: No - Nursing Vital Signs Nursing Vital Signs: Initial Vital Signs Temperature 97.8 F 09/27/23 19:26 Pulse Rate 108 H 09/27/23 19:26 Respiratory Rate 20 09/27/23 19:26 Blood Pressure 157/103 09/27/23 19:26 O2 Sat by Pulse Oximetry 95 09/27/23 19:26 Pain Scale Pain Intensity 8 - Physical Exam General Appearance: no apparent distress Eyes, Ears, Nose, Throat Exam: normal ENT inspection Neck Exam: normal inspection Cardiovascular/Respiratory Exam: chest non-tender Gastrointestinal/Abdominal Exam: non-tender Back Exam: normal inspection Hips Exam: bilateral: non-tender Legs Exam: right leg: other (BKA), left leg: joint effusion, soft tissue tenderness Knees Exam: left knee: joint effusion, soft tissue tenderness Ankle Exam: left ankle: non-tender Foot Exam: left foot: non-tender Neuro/Tendon Exam: normal sensation, normal motor functions, normal tendon functions Mental Status Exam: alert, oriented x 3, cooperative Skin Exam: normal color SpO2 Interpretation: normal SpO2: 95 O2 Delivery: Room Air - Course Nursing assessment & vital signs reviewed: Yes - Radiology Exams Knee X-ray Interpretation: Reviewed by me, No Fracture Ordered Tests: Active Orders 24 hr Category Date Time Status KNEE (3 VIEWS) Stat Exams 09/27/23 19:41 Taken CBC W DIFF Stat Lab 09/27/23 20:20 Completed CMP Stat Lab 09/27/23 20:20 Received Medication Summary Discontinued Medications Generic Name Dose Route Start Last Admin Trade Name Zach PRN Reason Stop Dose Admin Ketorolac Tromethamine 60 mg 09/27/23 20:33 Ketorolac Tromethamine 30 Mg/Ml Inj IM 09/27/23 20:34 STAT ONE Ketorolac Tromethamine Confirm 09/27/23 20:37 Ketorolac Tromethamine 30 Mg/Ml Inj Administered 09/27/23 20:38 Dose 60 mg .ROUTE .STK-MED ONE Lab/Rad Data: Laboratory Result Diagrams 09/27/23 20:20 Laboratory Results 09/27/23 Range/Units 20:20 WBC 8.1 (4.0-10.5) x10^3/uL RBC 3.87 L (4.1-5.4) x10^6/uL Hgb 10.1 L (12.0-16.0) g/dL Hct 31.7 L (35-47) % MCV 81.9 (78-100) fL MCH 26.1 (26-32) pg MCHC 31.9 L (32-36) g/dL RDW 14.6 H (11.5-14.0) % Plt Count 464 H (150-450) x10^3/uL MPV 8.9 (7.5-11.0) fL Gran % 61.0 (36.0-66.0) % Immature Gran % (Auto) 0.2 (0.00-0.4) % Nucleat RBC Rel Count 0.0 (0.00-0.1) % Eos # (Auto) 0 (0-0.5) x10^3/uL Immature Gran # (Auto) 0.02 (0.00-0.03) x10^3u/L Absolute Lymphs (auto) 2.24 (1.0-4.6) x10^3/uL Absolute Monos (auto) 0.92 (0.0-1.3) x10^3/uL Absolute Nucleated RBC 0.00 (0.00-0.01) x10^3u/L Lymphocytes % 27.5 (24.0-44.0) % Monocytes % 11.3 (0.0-12.0) % Eosinophils % 0.0 (0.00-5.0) % Basophils % 0.0 (0.0-0.4) % Absolute Granulocytes 4.96 (1.4-6.9) x10^3/uL Basophils # 0 (0-0.4) x10^3/uL - Progress Progress: improved, pain not gone completely Counseled pt/family regarding: lab results, diagnosis, need for follow-up, rad results Medical Desision Making - Diagnostic Testing Diagnostic test were ordered, analyzed, and reviewed by me: Yes Radiological Interpretation: Reviewed by me - Risk of complications Low Risk: Low risk of morbidity from additional dx testing or treatment - Departure Departure Disposition: Home Clinical Impression: Effusion, left knee Left knee pain Qualifiers: Chronicity: acute Qualified Code(s): M25.562 - Pain in left knee Condition: Stable Critical Care Time: No Referrals: AGATHA BENJAMIN NP [Primary Care Provider] - Follow Up with PCP/3 days Instructions: Knee Pain (DC), Swollen Joints (DC) Additional Instructions: Discharge/Care Plan SONNY OROPEZA was seen on 09/27/23 in the Emergency Room. The patient was counseled regarding Diagnosis,Lab results, Imaging studies, need for follow up and when to return to the Emergency Room. Prescriptions given: Discharge Note I have spoken with the patient and/or caregivers. I have explained the patient's condition, diagnosis and treatment plan based on the information available to me at this time. I have answered the patient's and/or caregiver's questions and addressed any concerns. The patient and/or caregivers have as good understanding of the patient's diagnosis, condition and treatment plan as can be expected at this point. The vital signs have been stable. The patient's condition is stable and appropriate for discharge from the emergency department. The patient will pursue further outpatient evaluation with the primary care physician or other designated or consulting physician as outlined in the discharge instructions. The patient and/or caregivers are agreeable to this plan of care and follow-up instructions have been explained in detail. The patient and/or caregivers have received these instruction. The patient/and or caregivers are aware that any significant change in condition or worsening of symptoms should prompt an immediate return to this or the closest emergency department or call 911. SONNY OROPEZA was seen on 09/27/23 n the Emergency Room. At that time you were treated for an emergent condition, during your visit Laboratory, Radiology and/or other procedures may have been ordered. It is very important that you follow-up with your Primary Care Physician AGATHA BENJAMIN within the next 24-48 hours to review your Emergency Room visit and the final results of testing that was ordered. Some test results such as Urine Cultures, Blood Cultures, and other cultures if ordered will not be finalized for 24-48 hours. If you do not have a Primary Care Provider please call the medical records department at [phone] ext [phone] to obtain a copy of your results or you may sign into our patient portal to obtain these results by visiting us @ [email or web address] and completing the following steps: 1. Click on the Patient Portal link 2. Click the Patient Self Enrollment Link to complete the enrollment form and entering your 3. Once the enrollment form is completed you will receive an email with a temporary ID and password at the email address you provided. 4. Next choose a user name and password. Your user name must be at least 4 characters long and your password must be at least 4 characters long. 5. Choose a security question from the list and provide your answer to the question. If you already have signed into the Health Portal you may access your Health Care Information 28/04 by the following steps: 1. Login to our website @ [email or web address] 2. Enter your original user name and password. FAQS The [facility] Health Portal is an online tool that contains your Lab Results, Radiology Reports, Visit History, Discharge Instructions and Health Summary Lab and Radiology Results will not be available for 72 hours on the portal. The Portal is a secure site, passwords are encryted and URLs are re-written so they cannot be copied and pasted. You and authorized family members are the only ones who can access your Portal. Also there is a timeout feature that protects your information if you leave the Portal page open. If you have technical difficulty please use the Contact Us link on the page this will allow you to submit any questions you have regarding the Portal or you may contact the Medical Record Department at [phone] ext [phone]. Prescriptions: Nabumetone 500 mg PO BID #15 tablet
[2023-09-27 20:26] LABS: Absolute Neutrophil Ct (ANC) 4.96 x10^3/uL (1.4-6.9); Basophil (Absolute #) 0 x10^3/uL (0-0.4); Eosinophil (Absolute #) 0 x10^3/uL (0-0.5); Hematocrit 31.7 % (35-47); Hemoglobin 10.1 g/dL (12.0-16.0); IMMATURE GRAN # 0.02 x10^3u/L (0.00-0.03); IMMATURE GRAN % 0.2 % (0.00-0.4); Lymphocyte (Absolute #) 2.24 x10^3/uL (1.0-4.6); Lymphocytes % 27.5 % (24.0-44.0); Mean Cell Volume 81.9 fL (78-100); Mean Corpuscular Hemoglobin 26.1 pg (26-32); Mean Corpuscular Hgb Concent. 31.9 g/dL (32-36); Mean Platelet Volume 8.9 fL (7.5-11.0); Monocyte (Absolute #) 0.92 x10^3/uL (0.0-1.3); Monocytes % 11.3 % (0.0-12.0); Platelet Count 464 x10^3/uL (150-450); Red Blood Count 3.87 x10^6/uL (4.1-5.4); Red Cell Distribution Width 14.6 % (11.5-14.0); White Blood Count 8.1 x10^3/uL (4.0-10.5)
[2023-09-27] MEDS ORDERED: TORAdol 30 mg Injection IM ONE (20:33)
[2023-09-27] MEDS ORDERED: TORAdol 30 mg Injection ONE (20:37)
[2023-09-27 20:39] LABS: ALBUMIN 3.9 g/dL (3.5-5.0); BILIRUBIN,TOTAL 0.3 mg/dL (0.2-1.3); Calcium 8.7 mg/dL (8.4-10.2); Creatinine 1 2.44 mg/dL (0.52-1.04); EST GLOMERULAR FILTRATION RATE 26.7 ML/MIN; Potassium 4.3 mmol/L (3.5-5.1); Total Protein 7.3 g/dL (6.3-8.2)
[2023-09-27 20:54] VITALS: BP 147/98; PULSE 90
--- NOTE | 2023-09-27 21:08 | XRAY ---
Indication: Pain and swelling for months. Comparison: None 3 view left knee obtained. No bony, articular, or soft tissue abnormalities.
== END 2023-09-27 20:54 | disposition home or self-care (01) ==
LOC: ED 19:20
DX: M25.462 Effusion, left knee (principal); M25.562 Pain in left knee; I12.9 Hypertensive chronic kidney disease with stage 1 through stage 4 chronic kidney disease, or unspecified chronic kidney disease; E11.22 Type 2 diabetes mellitus with diabetic chronic kidney disease; N18.9 Chronic kidney disease, unspecified; Z89.511 Acquired absence of right leg below knee; Z79.891 Long term (current) use of opiate analgesic; Z79.899 Other long term (current) drug therapy
CPT/HCPCS: 36415; 73562; 80053; 85025; 96372; 99283; J1885

== ENCOUNTER 2023-12-12 06:13 | Day surgery (SDC) | payer OTHER ==
[2023-12-12] MEDS: Lactated Ringers 1,000 ML IV SCH (06:38)
[2023-12-12 06:48] LABS: HCG URINE TEST NEGATIVE (NEGATIVE)
[2023-12-12 06:55] VITALS: RESP 18; O2SAT 97
[2023-12-12] MEDS ORDERED: DIPRIVAN 200 MG/20 ML IV ONE (07:49)
[2023-12-12] MEDS ORDERED: Amidate 20 MG/10 ML IV ONE (07:49)
[2023-12-12] MEDS ORDERED: Versed 2 MG/2 ML Injection ONE (07:49)
[2023-12-12] MEDS ORDERED: Xylocaine-Mpf 2% 5 Ml Vial ONE (07:49)
--- NOTE | 2023-12-12 08:40 | OP ---
SURGERY DATE/TIME: 12/12/2023 0756 PREOPERATIVE DIAGNOSIS: Gastroesophageal reflux and heartburn. POSTOPERATIVE DIAGNOSIS: Delayed gastric emptying and mild gastritis. PROCEDURE: Esophagogastroduodenoscopy with cold forceps biopsy of the gastric antrum. SURGEON: Dr. Hurtado. ANESTHESIA: Medications were given by the anesthesia department. BRIEF HISTORY: The patient was noted to be on multiple medications, quite an extensive list for a patient of her age. The patient was not on NSAID-type medications and is on proton pump inhibitor as well as H2 padmini. The patient was felt the need to have endoscopic evaluation. She was appraised of the risks of the procedure including the risk of perforation, phlebitis, untoward reaction to medication, bleeding and missed lesions. The patient verbalized her understanding and desired to have the procedure performed. DESCRIPTION OF PROCEDURE: The patient was given the medications by the anesthesia department. She had continuous pulse oximetry, ECG monitoring and intermittent blood pressure monitoring during the examination. She was placed in the left lateral decubitus position. A bite block was placed and the flexible Olympus gastroscope was used to intubate the oropharynx. A view of the esophagus was obtained and was normal throughout the esophagus. The scope was passed in the stomach where we saw fairly large amounts of retained gastric food stuff. We were able to pass the scope past this area to the pylorus which was then intubated. The duodenum inspected and found to be normal. The scope is withdrawn towards the stomach again. Retroflex view was accomplished and revealed no mucosal abnormalities. The scope was then redirected towards the gastric antrum. Biopsies were obtained to rule out the presence of Helicobacter pylori-type organisms. The scope was then removed from the patient who tolerated the procedure well and was sent back to outpatient recovery in good condition.
[2023-12-12 08:56] VITALS: BP 147/77; PULSE 71; TEMP 97.2
== END 2023-12-12 09:12 | disposition home or self-care (01) ==
LOC: SDC 06:13
PROVIDERS: ATTEND Family Medicine
DX: K29.70 Gastritis, unspecified, without bleeding (principal); K21.9 Gastro-esophageal reflux disease without esophagitis; K30 Functional dyspepsia; E11.9 Type 2 diabetes mellitus without complications
CPT/HCPCS: 81025; 82947; 83036; 93005; J2250; J2704

== ENCOUNTER 2024-03-18 00:19 | Emergency (ER) | payer OTHER ==
--- NOTE | 2024-03-18 00:22 | ERPHSYRPT ---
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 Patient was standing up while trying on new dresses that she received when it fell to her that her knee was suddenly dislocated. She then stated that her significant other and her were able to pop it back into place. However, she was having some discomfort and wanted it x-rayed. Patient has chronic left knee pain including chronic "knots" posteriorly to the knee. Occurred: just prior to arrival Quality: constant, aching Severity of Pain-Max: mild (Moderate) Severity of Pain-Current: mild (To moderate) Lower Extremities Pain: knee: left Modifying Factors: Improves With: movement Associated Symptoms: other (Hurts to bear weight but can do so) Allergies/Adverse Reactions: Penicillins Allergy (Severe, Verified 03/18/24 00:36) Hives Home Medications: Omeprazole 20 mg PO DAILY 01/02/22 [History] Quetiapine Fumarate [Seroquel] 100 mg PO HS 01/02/22 [History] Buprenorphine HCl/Naloxone HCl [Suboxone 8 mg-2 mg Sl Film] 20 mg PO DAILY 09/27/23 [History] Clonidine HCl 0.1 mg [Clonidine 0.1 mg Tablet] 0.3 mg PO TID 09/27/23 [History] Gabapentin 800 mg PO TID 09/27/23 [History] Methocarbamol [Robaxin] 1,500 mg PO TID 09/27/23 [History] Ropinirole 2Mg [Requip 2Mg Tab] 2 mg PO HS 09/27/23 [History] Trazodone HCl 150 mg PO HS 09/27/23 [History] hydrOXYzine pamoate [Vistaril] 50 mg PO TID 09/27/23 [History] Albuterol Sulfate [Albuterol Sulfate Hfa] 2 puffs IH UD PRN 12/02/23 [History] Cetirizine HCl [All Day Allergy Relief] 1 tab PO DAILY 12/02/23 [History] Duloxetine HCl 30 mg [Cymbalta 30 MG Capsule] 60 mg PO DAILY 12/02/23 [History] Famotidine 20 mg [Pepcid 20 MG] 20 mg PO QID 12/02/23 [History] Labetalol HCl 100 mg [Trandate 100 MG] 200 mg PO DAILY 12/02/23 [History] Multivitamin/Iron/Folic Acid [Daily Vitamin Formula-Iron Tab] 1 tab PO DAILY 12/02/23 [History] Olmesartan Medoxomil 20 mg [Benicar 20 MG] 40 mg PO DAILY 12/02/23 [Hist ory] Semaglutide [Ozempic] 1 mg SQ WEEKLY 12/02/23 [History] Hx Tetanus, Diphtheria Vaccination/Date Given: Yes Hx Influenza Vaccination/Date Given: No Hx Pneumococcal Vaccination/Date Given: No Travel Risk - International Travel Have you traveled outside of the country in past 3 weeks: No - Emerging Infectious Disease Are you exhibiting symptoms associated with any current EIDs: No - Review of Systems Constitutional: No Symptoms Eyes: No Symptoms Ears, Nose, & Throat: No Symptoms Respiratory: No Symptoms Cardiac: No Symptoms Abdominal/Gastrointestinal: No Symptoms Genitourinary Symptoms: No Symptoms Musculoskeletal: Joint Pain (Left knee pain anteriorly) Skin: No Symptoms Neurological: No Symptoms Psychological: No Symptoms Endocrine: No Symptoms Hematologic/Lymphatic: No Symptoms Immunological/Allergic: No Symptoms All Other Systems: Reviewed and Negative - Past Medical History Pertinent Past Medical History: Yes Neurological History: No Pertinent History ENT History: No Pertinent History Cardiac History: Hypertension Respiratory History: No Pertinent History Endocrine Medical History: No Pertinent History, Diabetes Type II Musculoskeletal History: Arthritis GI Medical History: Colitis, Crohns Disease, GERD History: Renal Disease, Other Psycho-Social History: Anxiety, Depression Female Reproductive Disorders: Endometriosis, Pelvic Inflammatory Disease Other Medical History: chronic kidney failure, SURGICAL REMOVAL OF BONE IN RIGHT LOWER LEG AND ANKLE, BELOW KNEE AMPUTEE - Past Surgical History Past Surgical History: Yes Neuro Surgical History: No Pertinent History Cardiac: Cardiac Catheterization Respiratory: No Pertinent History Gastrointestinal: No Pertinent History Genitourinary: No Pertinent History Musculoskeletal: Orthopedic Surgery, Other Female Surgical History: Section, Tubal Ligation Other Surgical History: right ankle biopsy, 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 R ankle external fixation 07/13/21. 7 Surgeries total to Rt lower leg, rt BKA Significant Family History: no pertinent family hx - Social History Smoking Status: Never smoker Exposure to second hand smoke: No Drug Use: none Patient Lives Alone: No - Nursing Vital Signs Nursing Vital Signs: Initial Vital Signs Temperature 96.3 F 03/18/24 00:27 Pulse Rate 104 H 03/18/24 00:27 Respiratory Rate 18 03/18/24 00:27 Blood Pressure 125/79 03/18/24 00:27 O2 Sat by Pulse Oximetry 95 03/18/24 00:27 Pain Scale Pain Intensity 8 - Physical Exam General Appearance: no apparent distress, alert, anxiety, obese Eyes, Ears, Nose, Throat Exam: normal ENT inspection Neck Exam: normal inspection, non-tender, supple, full range of motion Cardiovascular/Respiratory Exam: chest non-tender, no respiratory distress Gastrointestinal/Abdominal Exam: non-tender Back Exam: normal inspection, normal range of motion, No CVA tenderness, No vertebral tenderness Hips Exam: bilateral: non-tender, normal inspection, normal range of motion, no evidence of injury Legs Exam: bilateral leg: non-tender, normal inspection, normal range of motion, no evidence of injury Knees Exam: right knee: other (Right below the knee amputation), left knee: normal range of motion, soft tissue tenderness, swelling Ankle Exam: left ankle: non-tender, normal inspection, normal range of motion, no evidence of injury Foot Exam: left foot: non-tender, normal inspection, normal range of motion, no evidence of injury Neuro/Tendon Exam: normal sensation, normal motor functions, normal tendon functions, responds to pain, no evidence tendon injury Mental Status Exam: alert, oriented x 3, cooperative Skin Exam: normal color, warm, dry SpO2 Interpretation: normal O2 Delivery: Room Air - Course Nursing assessment & vital signs reviewed: Yes Ordered Tests: Active Orders 24 hr Category Date Time Status KNEE (1 OR 2 VIEW) Stat Exams 03/18/24 00:40 Taken Medication Summary Discontinued Medications Generic Name Dose Route Start Last Admin Trade Name Freq PRN Reason Stop Dose Admin Hydrocodone Bitart/Acetaminophen 1 tab 03/18/24 00:51 03/18/24 00:54 Hydrocodone/Apap 5/325 1 Tab Tablet PO 03/18/24 00:52 1 tab STAT ONE Administration Hydrocodone Bitart/Acetaminophen Confirm 03/18/24 00:53 Hydrocodone/Apap 5/325 1 Tab Tablet Administered 03/18/24 00:54 Dose 1 tab .ROUTE .STK-MED ONE - Progress Progress: improved, pain not gone completely Progress Note: 03/18/24 00:49 My medical decision making and the assignment of low complexity to this patient's medical issue today is based on review the patient's past medical history, review of the patient's medication list, review the patient drug allergy list, history present illness and physical findings on examination. The workup in this patient includes x-ray of the patient's left knee. 03/18/24 00:58 I interpreted the preliminary report on this patient's x-ray of her left knee. There is no evidence of any acute fracture or dislocation. Counseled pt/family regarding: diagnosis, need for follow-up, rad results Medical Desision Making - Independent Historian Additional History obtained from: Spouse - Diagnostic Testing Diagnostic test were ordered, analyzed, and reviewed by me: Yes Radiological Interpretation: Interpreted by me - Risk of complications Minimal Risk: Minimal risk of morbidity - Departure Departure Disposition: Home Clinical Impression: Left anterior knee pain Condition: Stable Critical Care Time: No Referrals: AGATHA BENJAMIN NP [Primary Care Provider] - Follow up/PCP as directed Additional Instructions: Ice pack to the left anterior knee 2-3 times a day for the next 72 hours. May add ibuprofen 600 mg orally with food 3 times a day for the next 5 days, if there are no contraindications, to pain regimen. Follow-up with your primary care provider later today, by phone, to make arrangements for follow-up appointment to be evaluated in the next 3 to 5 days. Take all your other medications as prescribed
[2024-03-18 00:28] VITALS: RESP 18; TEMP 96.3
[2024-03-18] MEDS ORDERED: NORCO 5/325 MG ONE ×2 (00:53→01:04)
[2024-03-18] MEDS: NORCO 5/325 MG PO ONE ×2 (00:54→01:05)
[2024-03-18 01:14] VITALS: BP 137/93; PULSE 101; O2SAT 97
--- NOTE | 2024-03-18 08:52 | XRAY ---
Indication: Pain. Comparison: None 2 view left knee demonstrates minimal lateral joint space narrowing and small nonspecific effusion. No other bony, articular, or soft tissue abnormalities.
== END 2024-03-18 01:12 | disposition home or self-care (01) ==
LOC: ED 00:19
DX: M25.562 Pain in left knee (principal); I12.9 Hypertensive chronic kidney disease with stage 1 through stage 4 chronic kidney disease, or unspecified chronic kidney disease; E11.22 Type 2 diabetes mellitus with diabetic chronic kidney disease; N18.9 Chronic kidney disease, unspecified; Z79.891 Long term (current) use of opiate analgesic; Z79.85 Long-term (current) use of injectable non-insulin antidiabetic drugs; Z79.899 Other long term (current) drug therapy; Z89.511 Acquired absence of right leg below knee
CPT/HCPCS: 73560; 99282; A9270-GY